=== PATIENT | female | born 1990 | race Caucasian/White ===

== ENCOUNTER 2023-03-09 11:29 | Outpatient (OUT) | payer OTHER, SELFPAY ==
[2023-03-09 12:32] LABS: Glucose 1 Hour 90 mg/dL
== END 2023-03-09 11:30 ==
LOC: LAB 11:34
PROVIDERS: Visit Provider Physician Assistant
DX: Z34.92 Encounter for supervision of normal pregnancy, unspecified, second trimester (principal)
CPT/HCPCS: 36415; 82950

== ENCOUNTER 2023-04-07 14:08 | Outpatient (OUT) | payer OTHER, SELFPAY ==
--- NOTE | 2023-04-07 14:10 | US_ITS ---
[address] [address] Patient Name: VINCENT HERNANDEZ MRN: [id number] date: 1990 Sex: F Assigned Patient Location: US Current Patient Location: Accession/Order Number: [id number] Exam Date: 04/07/2023 14:12 Report Date: 04/07/2023 16:25 At the request of: JOSE XAVIER Procedure: US OB BPP w non-stress EXAMINATION: US OB BPP w non-stress HISTORY: Z34.93 THIRD TRIMESTER COMPARISON: No relevant comparison available. TECHNIQUE: Ultrasound biophysical profile was performed in the radiology department. BREATHING MOVEMENTS: 2.0 GROSS BODY MOVEMENTS: 2.0 TONE: 2.0 QUALITATIVE AMNIOTIC FLUID VOLUME: 2.0 PRESENTATION: BREECH HEART RATE: 154.3 bpm bpm. AMNIOTIC FLUID VOLUME: 16.3 cm GESTATIONAL AGE: 31 weeks 6 days CONCLUSION: 1. Total biophysical profile score 8.0. 2. Grossly stable 6.8 cm heterogeneous masslike area within left uterine cavity (bicornuate uterus), likely thickened endometrium. Electronically authenticated by: ALY WHITE Date: 04/07/2023 16:25
[2023-04-07 14:42] VITALS: BP 112/60; PULSE 73
== END 2023-04-07 15:13 | disposition home or self-care (01) ==
LOC: US 14:17 → FBC 14:18
PROVIDERS: Visit Provider Obstetrics & Gynecology
DX: Z34.93 Encounter for supervision of normal pregnancy, unspecified, third trimester (principal)
CPT/HCPCS: 59025; 76818

== ENCOUNTER 2023-04-21 16:57 | Outpatient (OUT) | payer OTHER, SELFPAY ==
--- NOTE | 2023-04-21 17:05 | US_ITS ---
[address] [address] Patient Name: VINCENT HERNANDEZ MRN: [id number] date: 1990 Sex: F Assigned Patient Location: US Current Patient Location: US Accession/Order Number: [id number] Exam Date: 04/21/2023 17:06 Report Date: 04/22/2023 07:12 At the request of: JOSE XAVIER Procedure: US OB BPP w non-stress EXAMINATION: US OB BPP w non-stress HISTORY: THIRD TRIMESTER PREGNANY Z34.93 COMPARISON: No relevant comparison available. TECHNIQUE: Ultrasound biophysical profile was performed in the radiology department. non-reactive stress testing was performed by nursing staff in the birthing center. FINDINGS: BREATHING MOVEMENTS: 2 GROSS BODY MOVEMENTS: 2 TONE: 2 QUALITATIVE AMNIOTIC FLUID VOLUME: 2 PRESENTATION: Breech HEART RATE: 127.4 bpm H.B./min AMNIOTIC FLUID VOLUME: 13.7 cm cm GESTATIONAL AGE: 33 weeks 6 days CONCLUSION: Total biophysical profile score: 8 Electronically authenticated by: CHICO NORIEGA Date: 04/22/2023 07:12
[2023-04-21 17:43] VITALS: TEMP 35.9
[2023-04-21 17:44] VITALS: BP 115/62; PULSE 79
--- NOTE | 2023-04-21 17:44 | US_ITS ---
[address] [address] Patient Name: VINCENT HERNANDEZ MRN: [id number] date: 1990 Sex: F Assigned Patient Location: [facility] Current Patient Location: Accession/Order Number: [id number] Exam Date: 04/21/2023 17:06 Report Date: 04/22/2023 07:11 At the request of: JOSE XAVIER Procedure: US OB growth EXAMINATION: US OB growth HISTORY: BICORNUATE UTERUS COMPARISON: No relevant comparison available. FINDINGS: #: 1.0 Presentation: Breech presentation, longitudinal lie Heart Rate: 127.4 bpm Amniotic Fluid Volume: 13.7 cm cm Maximum Vertical Pocket: 1.8 cm cm 3.5 cm cm 7.6 cm cm 0.8 cm cm BIOMETRY: BPD: 7.7 cm cm; 31 weeks 0 days, 31 weeks 0 days, less than 3% HC: 30.7 cm cm; 34 weeks 2 days, 34 weeks 2 days, 23% AC: 31.5 cm cm; 35 weeks 3 days, 35 weeks 3 days, 90% FL: 6.5 cm cm; 33 weeks 2 days, 33 weeks 2 days, 25% EFW: 2392 g, 5 lbs. 4 oz. , 56%by AUA FL/AC: 20.5 FL/BPD: 83.3 HC/AC: 1.0 GESTATIONAL AGE: VANESSA by EDC: 33 weeks 6 days Age by EDC: 06/03/2023 Ultrasound Age: 33 weeks 4 days VANESSA by US: 06/05/2023 US/US OB growth IMPRESSION: BPD less than the 3rd percentile, otherwise normal interval growth Electronically authenticated by: CHICO NORIEGA Date: 04/22/2023 07:11
== END 2023-04-21 18:14 | disposition home or self-care (01) ==
LOC: US 16:58 → FBC 17:07
PROVIDERS: Visit Provider Obstetrics & Gynecology
DX: Z34.93 Encounter for supervision of normal pregnancy, unspecified, third trimester (principal)
CPT/HCPCS: 76816; 76818

== ENCOUNTER 2023-04-24 09:33 | Outpatient (OUT) | payer OTHER, SELFPAY | END 2023-04-24 10:22 | disposition home or self-care (01) | LOC: FBCO 09:33 → FBC 09:34 | PROVIDERS: Visit Provider Obstetrics & Gynecology | DX: Z34.93 Encounter for supervision of normal pregnancy, unspecified, third trimester (principal); Z3A.00 Weeks of gestation of pregnancy not specified | CPT/HCPCS: 59025 ==

== ENCOUNTER 2023-04-28 17:26 | Outpatient (OUT) | payer OTHER, SELFPAY ==
--- NOTE | 2023-04-28 17:27 | US_ITS ---
[address] [address] Patient Name: VINCENT HERNANDEZ MRN: [id number] date: 1990 Sex: F Assigned Patient Location: [facility] Current Patient Location: Accession/Order Number: [id number] Exam Date: 04/28/2023 17:30 Report Date: 04/29/2023 18:44 At the request of: OMAR HOOVER Procedure: US OB BPP w non-stress EXAMINATION: US OB BPP w non-stress HISTORY: THIRD TRIMESTER COMPARISON: No relevant comparison available. TECHNIQUE: Ultrasound biophysical profile was performed in the radiology department. BREATHING MOVEMENTS: 2.0 GROSS BODY MOVEMENTS: 2.0 TONE: 2.0 QUALITATIVE AMNIOTIC FLUID VOLUME: 2.0 PRESENTATION: BREECH HEART RATE: 137.8 bpm bpm. AMNIOTIC FLUID VOLUME: 13.1 cm GESTATIONAL AGE: 34 weeks 6 days CONCLUSION: 1. Total biophysical profile score 8.0. 2. Hypoechoic slightly heterogeneous left uterine cavity (bicornuate uterus), likely endometrium. Electronically authenticated by: ALY WHITE Date: 04/29/2023 18:44
[2023-04-28 18:13] VITALS: BP 104/53; PULSE 64
== END 2023-04-28 18:33 | disposition home or self-care (01) ==
LOC: US 17:26 → FBC 17:28
PROVIDERS: Visit Provider Midwife
DX: Z34.93 Encounter for supervision of normal pregnancy, unspecified, third trimester (principal)
CPT/HCPCS: 76818

== ENCOUNTER 2023-05-05 16:48 | Outpatient (OUT) | payer OTHER, SELFPAY ==
--- NOTE | 2023-05-05 16:55 | US_ITS ---
[address] [address] Patient Name: VINCENT HERNANDEZ MRN: [id number] date: 1990 Sex: F Assigned Patient Location: [facility] Current Patient Location: Accession/Order Number: [id number] Exam Date: 05/05/2023 16:56 Report Date: 05/06/2023 15:15 At the request of: JOSE XAVIER Procedure: US OB BPP w non-stress EXAMINATION: US OB BPP w non-stress HISTORY: Z34.93 THIRD TRIMESTER COMPARISON: Ultrasound biophysical 04/28/2023 TECHNIQUE: Ultrasound biophysical profile was performed in the radiology department. BREATHING MOVEMENTS: 2.0 GROSS BODY MOVEMENTS: 2.0 TONE: 2.0 QUALITATIVE AMNIOTIC FLUID VOLUME: 2.0 PRESENTATION: BREECH HEART RATE: 133.0 bpm bpm. AMNIOTIC FLUID VOLUME: 10.6 cm GESTATIONAL AGE: 35 weeks 6 days CONCLUSION: Total biophysical profile score 8.0. Electronically authenticated by: ALY WHITE Date: 05/06/2023 15:15
[2023-05-05 17:15] VITALS: BP 109/61; PULSE 71; TEMP 36.1
== END 2023-05-05 17:40 | disposition home or self-care (01) ==
LOC: US 16:48 → FBC 16:49
PROVIDERS: Visit Provider Obstetrics & Gynecology
DX: Z34.93 Encounter for supervision of normal pregnancy, unspecified, third trimester (principal)
CPT/HCPCS: 76818

== ENCOUNTER 2023-05-08 08:25 | Outpatient (RCR) | payer OTHER, SELFPAY ==
[2023-05-08 09:46] VITALS: BP 103/54; PULSE 84
== END 2023-05-08 10:10 | disposition home or self-care (01) ==
LOC: FBCO 08:25
PROVIDERS: Visit Provider Obstetrics & Gynecology Gynecology
DX: Z34.93 Encounter for supervision of normal pregnancy, unspecified, third trimester (principal)
CPT/HCPCS: 59025

== ENCOUNTER 2023-05-11 19:57 | Outpatient (REF) | payer OTHER, SELFPAY | END 2023-05-11 19:58 | disposition home or self-care (01) | LOC: LAB 19:57 | PROVIDERS: Visit Provider Obstetrics & Gynecology | DX: Z11.3 Encounter for screening for infections with a predominantly sexual mode of transmission (principal) | CPT/HCPCS: 87081 ==

== ENCOUNTER 2023-05-12 09:30 | Outpatient (OUT) | payer OTHER, SELFPAY ==
--- NOTE | 2023-05-12 09:38 | US_ITS ---
[address] [address] Patient Name: VINCENT HERNANDEZ MRN: [id number] date: 1990 Sex: F Assigned Patient Location: US Current Patient Location: Accession/Order Number: [id number] Exam Date: 05/12/2023 09:40 Report Date: 05/12/2023 21:44 At the request of: JOSE XAVIER Procedure: US OB BPP w non-stress EXAMINATION: US OB BPP w non-stress HISTORY: Third trimester COMPARISON: No relevant comparison available. TECHNIQUE: Ultrasound biophysical profile was performed in the radiology department. FINDINGS: BREATHING MOVEMENTS: 2.0 GROSS BODY MOVEMENTS: 2.0 TONE: 2.0 QUALITATIVE AMNIOTIC FLUID VOLUME: 2.0 PRESENTATION: TRANSVERSE RT HEART RATE: 133.0 bpm H.B./min AMNIOTIC FLUID VOLUME: 12.5 cm cm GESTATIONAL AGE: 36 weeks 6 days CONCLUSION: Total biophysical profile score: 8.0 Electronically authenticated by: CHICO NORIEGA Date: 05/12/2023 21:44
[2023-05-12 10:08] VITALS: BP 123/67; PULSE 71
== END 2023-05-12 10:35 | disposition home or self-care (01) ==
LOC: US 09:39 → FBC 09:39
PROVIDERS: Visit Provider Obstetrics & Gynecology
DX: Z34.93 Encounter for supervision of normal pregnancy, unspecified, third trimester (principal)
CPT/HCPCS: 59025; 76818

== ENCOUNTER 2023-05-15 09:52 | Outpatient (OUT) | payer OTHER, SELFPAY ==
[2023-05-15 10:04] VITALS: BP 121/70; PULSE 86
== END 2023-05-15 10:30 | disposition home or self-care (01) ==
LOC: FBCO 09:52 → FBC 09:54
PROVIDERS: Visit Provider Obstetrics & Gynecology
DX: Z34.93 Encounter for supervision of normal pregnancy, unspecified, third trimester (principal)
CPT/HCPCS: 59025

== ENCOUNTER 2023-05-19 15:57 | Outpatient (OUT) | payer OTHER, SELFPAY ==
[2023-05-19 16:05] VITALS: BP 114/55; PULSE 68
--- NOTE | 2023-05-19 16:22 | US_ITS ---
[address] [address] Patient Name: VINCENT HERNANDEZ MRN: [id number] date: 1990 Sex: F Assigned Patient Location: [facility] Current Patient Location: Accession/Order Number: [id number] Exam Date: 05/19/2023 16:23 Report Date: 05/20/2023 15:54 At the request of: JOSE XAVIER Procedure: US OB BPP w non-stress EXAMINATION: US OB BPP w non-stress HISTORY: THIRD TRIMESTER Z 34.93 COMPARISON: Ultrasound OB biophysical 05/12/2023 TECHNIQUE: Ultrasound biophysical profile was performed in the radiology department. BREATHING MOVEMENTS: 2.0 GROSS BODY MOVEMENTS: 2.0 TONE: 2.0 QUALITATIVE AMNIOTIC FLUID VOLUME: 2.0 PRESENTATION: CEPHALIC HEART RATE: Not recorded. AMNIOTIC FLUID VOLUME: 7.7 cm GESTATIONAL AGE: 37 weeks 6 days CONCLUSION: Total biophysical profile score 8.0. Electronically authenticated by: ALY WHITE Date: 05/20/2023 15:54
--- NOTE | 2023-05-19 16:22 | US_ITS ---
[address] [address] Patient Name: VINCENT HERNANDEZ MRN: [id number] date: 1990 Sex: F Assigned Patient Location: [facility] Current Patient Location: [facility] Accession/Order Number: [id number] Exam Date: 05/19/2023 16:23 Report Date: 05/20/2023 15:58 At the request of: JOSE XAVIER Procedure: US OB growth EXAMINATION: US OB growth HISTORY: THIRD TRIMESTER Z34.93 COMPARISON: No relevant comparison available. FINDINGS: Heart Rate: Not recorded. Number: 1.0 Position: CEPHALIC Amniotic Fluid Volume: 7.7 cm Maximum Vertical Pocket: 3.9 cm BIOMETRY: BPD: 8.1 cm cm; 32 weeks 3 days; < 3% HC: 32.5 cmcm; 36 weeks 6 days; 11% AC: 32.6 cm cm; 36 weeks 4 days; 30% FL: 7.0 cm cm; 36 weeks 0 days; 12% EFW: 2817.7 grams; 17% FL/AC: 21.5 FL/BPD: 87.2 HC/AC: 1.0 GESTATIONAL AGE: Age by EDC: 37 weeks 6 days VANESSA by EDC: 06/03/2023 Age by US: 35 weeks 3 days VANESSA by US: 06/20/2023 US/US OB growth IMPRESSION: 1. Single live intrauterine with growth detailed above. 2. Biparietal diameter is less than 3rd percentile. Electronically authenticated by: ALY WHITE Date: 05/20/2023 15:58
== END 2023-05-19 18:45 ==
LOC: FBCO 15:57 → FBC 15:58
PROVIDERS: Visit Provider Obstetrics & Gynecology
DX: Z34.93 Encounter for supervision of normal pregnancy, unspecified, third trimester (principal); Z3A.37 37 weeks gestation of pregnancy
CPT/HCPCS: 59025; 76816; 76818

== ENCOUNTER 2023-05-20 13:34 | Outpatient (OUT) | payer OTHER, SELFPAY ==
--- NOTE | 2023-05-20 13:35 | US_ITS ---
[address] [address] Patient Name: VINCENT HERNANDEZ MRN: [id number] date: 1990 Sex: F Assigned Patient Location: US Current Patient Location: US Accession/Order Number: [id number] Exam Date: 05/20/2023 13:36 Report Date: 05/20/2023 15:52 At the request of: JOSE XAVIER Procedure: US OB BPP w non-stress EXAMINATION: US OB BPP w non-stress HISTORY: Decreased amniotic fluid COMPARISON: No relevant comparison available. TECHNIQUE: Ultrasound biophysical profile was performed in the radiology department. BREATHING MOVEMENTS: 2.0 GROSS BODY MOVEMENTS: 2.0 TONE: 2.0 QUALITATIVE AMNIOTIC FLUID VOLUME: 2.0 PRESENTATION: BREECH HEART RATE: 156.1 bpm bpm. AMNIOTIC FLUID VOLUME: 12.5 cm GESTATIONAL AGE: 38 weeks 0 days CONCLUSION: 1. Total biophysical profile score 8.0. 2. Hypoechoic mass within fundal myometrium 8.0 x 7.1 x 4.0 cm; likely a leiomyoma. Electronically authenticated by: ALY WHITE Date: 05/20/2023 15:52
== END 2023-05-20 13:35 | disposition home or self-care (01) ==
LOC: US 13:34
PROVIDERS: Visit Provider Obstetrics & Gynecology
DX: O41.03X0 Oligohydramnios, third trimester, not applicable or unspecified (principal); Z3A.38 38 weeks gestation of pregnancy
CPT/HCPCS: 76818

== ENCOUNTER 2023-05-22 01:23 | Inpatient (IN) | payer OTHER, SELFPAY ==
[2023-05-22] VITALS (49 sets, daily range): BP systolic 83–124; BP diastolic 38–78; PULSE 58–80; RESP 13–35; TEMP 36.3–37.1; O2SAT 96–98
[2023-05-22 02:19] LABS: Bilirubin Urine NEGATIVE (NEGATIVE); Blood Urine NEGATIVE (NEGATIVE); Clarity Urine CLEAR (CLEAR); Color Urine YELLOW (YELLOW); Glucose Urine UA NEGATIVE (NEGATIVE); Ketones Urine NEGATIVE (NEGATIVE); Leukocyte Esterase Urine NEGATIVE (NEGATIVE); Nitrite Urine NEGATIVE (NEGATIVE); Protein Urine NEGATIVE (NEG/TRACE); Specific Gravity Urine 1.025 (1.005-1.025); Urobilinogen Urine 0.2 EU/dL (0.2-1.0); pH Urine 5.5 (5.0-9.0)
[2023-05-22 02:21] LABS: Urine Microscopic Indicated NO
[2023-05-22 02:21] LABS: Amnisure POSITIVE (NEGATIVE)
[2023-05-22] MEDS: 0.9 % SODIUM CHLORIDE 1,000 ML 1000 ML IV ×2 (02:45→04:00)
[2023-05-22 03:11] LABS: Basophils Percent Auto 0.3 % (0.2-2.0); Eosinophils Absolute Auto 0.2 10^3/uL (0.0-0.7); Eosinophils Percent Auto 1.7 % (0.9-7.0); Hematocrit 36.2 % (36.0-48.0); Hemoglobin 12.1 g/dL (12.0-16.0); Immature Granulocytes Abs Auto 0.07 10^3/uL (0.00-0.03); Immature Granulocytes Pct Auto 0.6 % (0.0-0.5); Lymphocytes Absolute Auto 2.7 10^3/uL (1.2-3.8); Lymphocytes Percent Auto 22.8 % (20.5-60.0); Mean Corpuscular HGB Conc 33.4 g/dL (29.9-35.2); Mean Corpuscular Hemoglobin 28.7 pg (26.7-34.0); Monocytes Absolute Auto 0.7 10^3/uL (0.3-0.8); Monocytes Percent Auto 6.1 % (1.7-12.0); Neutrophils Absolute Auto 8.2 10^3/uL (1.4-6.5); Neutrophils Percent Auto 68.5 % (43.0-75.0); Platelet Count 246 10^3/uL (150-450); Red Blood Count 4.21 10^6/uL (4.20-5.40); Red Cell Distribution Width 13.5 % (11.0-15.0); White Blood Count 11.9 10^3/uL (4.0-11.0)
[2023-05-22 03:20] LABS: Amphetamine Screen Urine NEGATIVE (NEGATIVE); Barbiturates Screen Urine NEGATIVE (NEGATIVE); Benzodiazepines Screen Urine NEGATIVE (NEGATIVE); Buprenorphine Screen Urine NEGATIVE (NEGATIVE); Cannabinoid Screen Urine POSITIVE (NEGATIVE); Cocaine Screen Urine NEGATIVE (NEGATIVE); Methadone Screen Urine NEGATIVE (NEGATIVE); Methamphetamines Screen Urine NEGATIVE (NEGATIVE); Opiate Screen Urine NEGATIVE (NEGATIVE); Oxycodone Screen Urine NEGATIVE (NEGATIVE); Phencyclidine Screen Urine NEGATIVE (NEGATIVE); Tricyclic Antidepressant Urine NEGATIVE (NEGATIVE)
[2023-05-22] MEDS: FAMOTIDINE/PF 20 MG/2 ML VIAL IV (04:02)
[2023-05-22] MEDS: CEFAZOLIN SODIUM/DEXTROSE 2 GM/50 ML PIGGYBACK IV (04:04)
[2023-05-22] MEDS: LACTATED RINGER'S SOLUTION 1,000 ML 50 ML IV (04:56)
--- NOTE | 2023-05-22 04:59 | P.ON_ITS ---
Brief Operative Note Date of procedure: 05/22/23 Pre-op diagnosis: iup at 38+wks, previous c/s, uterine didelphysis, srom Post-op diagnosis: same as pre-op Procedure: NAME OF PROCEDURE: [ section ] PROCEDURE: Patient was taken back to the Operating Room where she was given a spinal anesthesia with Duramorph without difficulty. She was prepped and draped in the normal sterile fashion. A Pfannenstiel skin incision was then made 2 cm above the symphysis pubis and carried down to underlying rectus fascia using a Bovie. The fascia was incised in the midline and extended laterally using Walker scissors. Two Sushant clamps were placed on the superior aspect of the fascia and dissected off the underlying rectus muscles. The same was performed on the inferior aspect as well. The muscles were then in the midline. Tamika toneum was identified and entered bluntly. The peritoneum was then extended superiorly and inferiorly with good visualization of the bladder. The bladder blade was inserted. A low transverse incision was made on the patient's uterus and extended laterally digitally. The was then delivered atraumatically after the bladder blade was removed in the breech position. The cord was clamped and cut. Cord blood was obtained. The was handed off to awaiting team. The patient's placenta was spontaneously delivered. The uterus was then exteriorized. The uterus was cleared of all clots and debris. The bladder blade was reinserted. The patient's uterine incision was closed using #0 Vicryl in a running lock fashion. Excellent hemostasis was assured. The uterus was then returned to the patient's abdomen. The patient's abdomen was copiously irrigated using warm saline. Peritoneal gutters were cleared of all clots and debris. Again excellent hemostasis was assured. The patient's peritoneum was closed using 3-0 Vicryl in a running fashion. The patient's fascia was closed using #0 Vicryl in a running fashion. The patient's skin was closed using 4-0 Vicryl subcuticularly. The patient tolerated the procedure well. Sponge, lap, and needle counts were correct x2. The patient was taken to the Recovery Room in stable condition. Anesthesia: spinal Surgeon: Judd Mg Loss Prevention/Safety District Manager: Cayla Chowdary Estimated blood loss (mL): 575 Pathology: other (placenta) Condition: stable Disposition: floor
--- NOTE | 2023-05-22 05:01 | PM.OBPRCCS ---
Procedure Pre-op/Post-op diagnoses: Pre-Op/Post-Op Diagnoses Operation Date: 05/22/23 04:00 <No data on this case meets the specified criteria> Procedure: Procedures Operation Date: 05/22/23 04:00 Actual Procedure Side Surgeon p Repeat Not Applicable Judd Mg DO Seat Joiner Chainstitch: Cayla Chowdary Estimated blood loss (mL): 575 Disposition: floor Anesthesia type: Spinal
[2023-05-22] MEDS: OXYTOCIN/0.9 % SODIUM CHLORIDE 20 UNITS/1,000 ML PLAST..BAG 125 UNIT IV (05:28)
--- NOTE | 2023-05-22 06:07 | PC.NURSE ---
Beauchamp intact draining clear yellow
--- NOTE | 2023-05-22 06:10 | PC.NURSE ---
Baby on mother's chest
--- NOTE | 2023-05-22 06:16 | PC.NURSE ---
Beauchamp patent and draining clear yellow urine
--- NOTE | 2023-05-22 06:20 | PC.NURSE ---
With fundus checks, feeling pressure at umbilicus; cespedes patent and draining clear yellow urine; baby to breast
[2023-05-22] MEDS: KETOROLAC TROMETHAMINE 30 MG/ML VIAL IVP ×3 (09:47→23:11)
[2023-05-22] MEDS: CEFAZOLIN SODIUM/DEXTROSE,ISO 2 GM/50 ML PIGGYBACK IV (11:00)
--- NOTE | 2023-05-22 15:33 | W.PC.ACHO ---
Registration Status: ADM JER Primary Language: Preferred Language: Bolivian Active Medications Generic Name Dose Route Start Last Admin Trade Name Freq PRN Reason Stop Dose Admin Al Hydroxide/Mg Hydroxide 2,400 mg 05/22/23 04:56 Magnesium Hydroxide 2,400 Mg/10 Ml Oral.Susp PO Q6H PRN Dyspepsia Diphenhydramine HCl 25 mg 05/22/23 04:56 Diphenhydramine Hcl 50 Mg/Ml (1ml) Vial IV 05/23/23 04:58 Q6H PRN Itching Docusate Sodium 100 mg 05/23/23 09:00 Docusate Sodium 100 Mg Capsule PO BID CLEM Enoxaparin Sodium 40 mg 05/22/23 17:00 Enoxaparin Sodium 40 Mg/0.4 Ml Syringe SUBQ Q24H CLEM Sodium Chloride 1,000 mls @ 125 mls/hr 05/22/23 03:00 Sodium Chloride 0.9% 1,000 Ml IV .Q8H CLEM Lactated Ringer's 1,000 mls @ 50 mls/hr 05/22/23 05:00 05/22/23 04:56 Lactated Ringers IV 50 mls/hr .Q20H CLEM Administration Lactated Ringer's 1,000 mls @ 125 mls/hr 05/22/23 05:00 Lactated Ringers IV .Q8H CLEM Ibuprofen 800 mg 05/22/23 04:56 Ibuprofen 400 Mg Tablet PO Q8H PRN Pain Ketorolac Tromethamine 30 mg 05/22/23 04:56 05/22/23 09:47 Ketorolac Tromethamine 30 Mg/Ml Vial IVP 05/24/23 04:57 30 mg Q6H PRN Administration Pain Nalbuphine HCl 10 mg 05/22/23 04:56 Nalbuphine Hcl 10 Mg/Ml Ampule IV 05/23/23 04:58 Q3H PRN Itching Ondansetron HCl 4 mg 05/22/23 04:56 Ondansetron Pf 4 Mg/2 Ml Vial IV Q6H PRN Nausea And Vomiting Oxycodone/Acetaminophen 1 tab 05/22/23 04:56 Oxycodone Hcl/Acetaminophen 1 Tab Tablet PO Q4H PRN Pain Scale 4-6 Oxycodone/Acetaminophen 2 tab 05/22/23 04:56 Oxycodone Hcl/Acetaminophen 1 Tab Tablet PO Q4H PRN Pain Scale 7-10 Senna 17.2 mg 05/22/23 20:00 Sennosides 8.6 Mg Tablet PO QHS PRN Constipation Simethicone 80 mg 05/22/23 04:56 Simethicone 80 Mg Tab.Chew PO QID PRN Abdominal Distention Diet Category Date Time Status NPO Diet Diet 05/22/23 02:57 Active Regular Consistency Diet Diet 05/22/23 Dinner Active Consults Category Date Time Status Consult to Anesthesiology Routine Cons 05/22/23 Ordered Consult to Pulmonary Specialist Routine Cons 05/22/23 Ordered IV Insertion/Site Date of IV Line Insertion [18g 05/22/23 left Hand] IV Insertion Time [18g left 02:40 Hand] Neurology Patient orientation (short person,place,time,situation list) Respiratory Lung sounds [Throughout] clear Lung sounds [Throughout] clear Lung sounds [Throughout] clear Lung sounds [Throughout] clear Pulse Oximetry 98 Pulse Oximetry 98 Pulse Oximetry 96 Pulse Oximetry 96 Pulse Oximetry 97 Pulse Oximetry 96 Pulse Oximetry 97 Pulse Oximetry 96 Oxygen Delivery Method Room Air Oxygen Delivery Method Room Air Oxygen Delivery Method Room Air Oxygen Delivery Method Room Air Oxygen Delivery Method Room Air Oxygen Delivery Method Room Air Catheter Urinary Catheter Date of 05/22/23 Insertion [Urethral] Urinary Catheter Time of 03:00 Insertion [Urethral] Date Urinary Catheter Removed 05/22/23 [Urethral] Time Urinary Catheter 14:15 Discontinued [Urethral]
--- NOTE | 2023-05-22 23:07 | RESP.RT ---
Patient at this time.
[2023-05-23 04:30] VITALS: BP 89/45; PULSE 70; RESP 18; TEMP 37
[2023-05-23 04:57] VITALS: BP 89/45
[2023-05-23 05:08] LABS: Basophils Percent Auto 0.3 % (0.2-2.0); Eosinophils Absolute Auto 0.1 10^3/uL (0.0-0.7); Hematocrit 27.9 % (36.0-48.0); Hemoglobin 9.3 g/dL (12.0-16.0); Immature Granulocytes Abs Auto 0.07 10^3/uL (0.00-0.03); Immature Granulocytes Pct Auto 0.5 % (0.0-0.5); Lymphocytes Absolute Auto 3.3 10^3/uL (1.2-3.8); Lymphocytes Percent Auto 22.6 % (20.5-60.0); Mean Corpuscular HGB Conc 33.3 g/dL (29.9-35.2); Mean Corpuscular Hemoglobin 29.1 pg (26.7-34.0); Mean Corpuscular Volume 87.2 fL (81.0-99.0); Mean Platelet Volume 11.4 fL (9.5-13.5); Monocytes Absolute Auto 0.9 10^3/uL (0.3-0.8); Monocytes Percent Auto 6.3 % (1.7-12.0); Neutrophils Absolute Auto 10.2 10^3/uL (1.4-6.5); Neutrophils Percent Auto 69.3 % (43.0-75.0); Platelet Count 187 10^3/uL (150-450); Red Cell Distribution Width 13.3 % (11.0-15.0); White Blood Count 14.7 10^3/uL (4.0-11.0)
[2023-05-23] MEDS: KETOROLAC TROMETHAMINE 30 MG/ML VIAL IVP ×3 (06:28→17:57)
[2023-05-23] MEDS: ENOXAPARIN SODIUM 40 MG/0.4 ML SYRINGE SUBQ (06:29)
[2023-05-23] MEDS: DOCUSATE SODIUM 100 MG CAPSULE PO ×2 (09:44→21:36)
[2023-05-23 10:47] VITALS: BP 106/58; PULSE 98; RESP 18; TEMP 36.8
[2023-05-23 11:16] VITALS: RESP 16; TEMP 36.8
--- NOTE | 2023-05-23 11:24 | PM.OBPN ---
OB - PN: Subj Subjective Patient comments: no complaints and pain well controlled [place] status: doing well Exam Constitutional Vital Signs, click to edit/add: Last Vital Signs Temp 98.3 F 05/23/23 11:16 Pulse 98 H 05/23/23 10:47 Resp 16 05/23/23 11:16 BP 106/58 05/23/23 10:47 Pulse Ox 98 05/22/23 06:00 O2 Del Method Room Air 05/23/23 04:30 Documenting provider has reviewed patient's vital signs: yes Respiratory Common normals: clear to auscultation bilaterally Cardio Common normals: regular rate and regular rhythm GI Common normals: Normal to inspection, nondistended, normoactive bowel sounds present Extremity Common normals: no clubbing, cyanosis or edema and no calf tenderness Results Labs Labs: Short CBC 05/23/23 Range/Units 04:52 WBC 14.7 H (4.0-11.0) 10^3/uL Hgb 9.3 L (12.0-16.0) g/dL Hct 27.9 L (36.0-48.0) % Plt Count 187 (150-450) 10^3/uL OB - PN: A/P Plan - day: 1 Plan: routine postop care Time Spent with Patient Time: Total time spent is greater than 50% in coordination of care (as documented) at patient's floor/unit and/or counseling patient: Total time spent with greater than 50% in coordination of care (as documented) at patient's floor/unit and/or counseling patient: less than 15 minutes
[2023-05-23 16:25] VITALS: BP 114/64; RESP 16; TEMP 37.3
[2023-05-23] MEDS: MAGNESIUM HYDROXIDE 2,400 MG/10 ML ORAL.SUSP 2400 MG PO (16:27)
--- NOTE | 2023-05-23 20:10 | W.PC.ACHO ---
Registration Status: ADM JER Primary Language: Preferred Language: Turkish Active Medications Generic Name Dose Route Start Last Admin Trade Name Freq PRN Reason Stop Dose Admin Al Hydroxide/Mg Hydroxide 2,400 mg 05/22/23 04:56 05/23/23 16:27 Magnesium Hydroxide 2,400 Mg/10 Ml Oral.Susp PO 2,400 mg Q6H PRN Administration Dyspepsia Docusate Sodium 100 mg 05/23/23 09:00 05/23/23 09:44 Docusate Sodium 100 Mg Capsule PO 100 mg BID CLEM Administration Enoxaparin Sodium 40 mg 05/24/23 06:00 Enoxaparin Sodium 40 Mg/0.4 Ml Syringe SUBQ Q24H CLEM Sodium Chloride 1,000 mls @ 125 mls/hr 05/22/23 03:00 Sodium Chloride 0.9% 1,000 Ml IV .Q8H CLEM Lactated Ringer's 1,000 mls @ 50 mls/hr 05/22/23 05:00 05/22/23 04:56 Lactated Ringers IV 50 mls/hr .Q20H CLEM Administration Lactated Ringer's 1,000 mls @ 125 mls/hr 05/22/23 05:00 Lactated Ringers IV .Q8H CLEM Ibuprofen 800 mg 05/22/23 04:56 Ibuprofen 400 Mg Tablet PO Q8H PRN Pain Ketorolac Tromethamine 30 mg 05/22/23 04:56 05/23/23 17:57 Ketorolac Tromethamine 30 Mg/Ml Vial IVP 05/24/23 04:57 30 mg Q6H PRN Administration Pain Ondansetron HCl 4 mg 05/22/23 04:56 Ondansetron Pf 4 Mg/2 Ml Vial IV Q6H PRN Nausea And Vomiting Oxycodone/Acetaminophen 1 tab 05/22/23 04:56 Oxycodone Hcl/Acetaminophen 1 Tab Tablet PO Q4H PRN Pain Scale 4-6 Oxycodone/Acetaminophen 2 tab 05/22/23 04:56 Oxycodone Hcl/Acetaminophen 1 Tab Tablet PO Q4H PRN Pain Scale 7-10 Senna 17.2 mg 05/22/23 20:00 Sennosides 8.6 Mg Tablet PO QHS PRN Constipation Simethicone 80 mg 05/22/23 04:56 Simethicone 80 Mg Tab.Chew PO QID PRN Abdominal Distention Respiratory Oxygen Delivery Method Room Air Oxygen Delivery Method Room Air
[2023-05-24] MEDS: KETOROLAC TROMETHAMINE 30 MG/ML VIAL IVP (00:41)
[2023-05-24 00:45] VITALS: BP 117/60; PULSE 78; RESP 16; TEMP 36.9
[2023-05-24] MEDS: ENOXAPARIN SODIUM 40 MG/0.4 ML SYRINGE SUBQ (06:00)
--- NOTE | 2023-05-24 07:42 | P.OBPN_ITS ---
OB - PN: Subj Subjective Patient comments: no complaints and pain well controlled [place] status: doing well Exam Constitutional Vital Signs, click to edit/add: Last Vital Signs Temp 98.5 F 05/24/23 00:45 Pulse 78 05/24/23 00:45 Resp 16 05/24/23 00:45 BP 117/60 05/24/23 00:45 Pulse Ox 98 05/22/23 06:00 O2 Del Method Room Air 05/23/23 04:30 Documenting provider has reviewed patient's vital signs: yes Common normals: no apparent distress Respiratory Common normals: normal respiratory effort and clear to auscultation bilaterally Cardio Common normals: regular rate and regular rhythm GI Common normals: Normal to inspection, nondistended, normoactive bowel sounds present Extremity Common normals: no clubbing, cyanosis or edema OB - PN: A/P Plan - day: 2 Plan: routine postop care, discharge home and follow up 6 weeks Time Spent with Patient Time: Total time spent is greater than 50% in coordination of care (as documented) at patient's floor/unit and/or counseling patient: Total time spent with greater than 50% in coordination of care (as documented) at patient's floor/unit and/or counseling patient: less than 15 minutes
[2023-05-24] MEDS: IBUPROFEN 400 MG TABLET 800 MG PO (08:34)
[2023-05-24 08:35] VITALS: BP 114/70; PULSE 70; RESP 16; TEMP 36.8
[2023-05-24] MEDS: DOCUSATE SODIUM 100 MG CAPSULE PO (08:35)
[2023-05-24 08:40] VITALS: BP 114/70; PULSE 70
--- NOTE | 2023-05-24 10:09 | SWNOTE1 ---
SW consulted due to positive drug screen. SW spoke with nursing prior to seeing pt. Pt positive for marijuana on admission. Pt has been appropriate with baby. Pt has been appropriate during stay, pt was crying this morning when father of baby was in room. SW met with pt to discuss needs and positive drug screen. Pt does admit to using marijuana during , she smoked bowls. She stated she did it due to stress/anixety. She used to be a 10 (give or take) a day cigarette smoker, but she cut that way back and only did a few hits and then threw the cigarette out. She did not drink during . SW and pt spoke about father of baby. Pt did start to cry and stated she is not sure if they are together at this time, she stated it is complicated. Father of baby, Brenton, had a baby with another woman in January and he moved out about a month ago to live with her. Pt did voice Brenton and herself do get along well and he is a good father. She voiced he is helping to care for both babies, just is a tough situation. SW did ask if pt has been to any counseling and she stated in the past but not recently. Pt voiced she does have a good support system. She has a 16 year old daughter at home. Pt's family/friends are supportive of her, but do not want her and Brenton to be together, which makes things harder as well. Pt does have everything she needs at home with baby. Pt is attempting breast feeding, but is supplementing formula as needed. Pt is appropriate with baby and caring towards baby. No other concerns at this time. SW let pt know if she would like any resources to ask for SW to come back. SW did let pt know due to [place] law, SW is mandated reported and CPS will be notified due to the marijuana. Pt voiced understanding. No questions at this time. VALERIA updated nursing, plan is for discharge today.
--- NOTE | 2023-05-31 | DS_ITS ---
DISCHARGE DATE: ??05/31/2023 PRIMARY DIAGNOSES: 1.? Intrauterine at 38+ weeks. 2.? Previous . 3.? Uterine didelphys. 4.? Spontaneous rupture of membranes PROCEDURE:? Repeat . HOSPITAL COURSE:? As expected.? Please see chart for full details.? LABORATORY DATA:? Please see chart. COMPLICATIONS:? None. DISCHARGE CONDITION:? Stable. CONSULTATION:? Anesthesia. DISCHARGE INSTRUCTIONS: 1.? Diet:? Regular. 2.? Medications: a.? Percocet 5/325 one to two p.o. every 4-6 hours p.r.n. pain. b.? Motrin 800 one p.o. every 8 hours p.r.n. pain. 3.? Followup in one week. Restrictions:? Pelvic rest for 6 weeks.? No heavy lifting.? May drive when pain free and no longer on narcotics. MTDD
== END 2023-05-24 13:40 | disposition home or self-care (01) | DRG 540 ==
PROVIDERS: Admitting Provider Obstetrics & Gynecology; Visit Provider Obstetrics & Gynecology
PROC: 10D00Z1 Extraction of Products of Conception, Low, Open Approach (ICD-10-PCS; CPT 59514; principal; 2023-05-22 04:00)
DX: O32.1XX0 Maternal care for breech presentation, not applicable or unspecified (principal); Z3A.38 38 weeks gestation of pregnancy; O99.334 Smoking (tobacco) complicating childbirth; F17.210 Nicotine dependence, cigarettes, uncomplicated; O99.324 Drug use complicating childbirth; F12.90 Cannabis use, unspecified, uncomplicated; O34.211 Maternal care for low transverse scar from previous cesarean delivery; Z37.0 Single live birth; O34.03 Maternal care for unspecified congenital malformation of uterus, third trimester; Q51.28 Other and unspecified doubling of uterus; Z87.39 Personal history of other diseases of the musculoskeletal system and connective tissue; Z87.19 Personal history of other diseases of the digestive system; Z79.899 Other long term (current) drug therapy; Z98.84 Bariatric surgery status; Z83.3 Family history of diabetes mellitus; Z81.8 Family history of other mental and behavioral disorders; Z82.49 Family history of ischemic heart disease and other diseases of the circulatory system; O42.92 Full-term premature rupture of membranes, unspecified as to length of time between rupture and onset of labor
CPT/HCPCS: 36415; 51702; 59025; 76816; 76818; 80307; 81003; 84112; 85025; 86850; 86900; 86901; 94667; 94668; 96372; 96374; 96375; 96376

== ENCOUNTER 2023-05-26 08:15 | Outpatient (OUT) | payer OTHER, SELFPAY ==
[2023-05-26 14:55] VITALS: BP 121/82; PULSE 61; RESP 14; TEMP 36.6; O2SAT 97
--- NOTE | 2023-05-26 14:59 | PC.NURSE ---
States is feeling well, incision more tender on right side. States had more manipulation on right side as baby was breech and had double uterus. States Motrin 800 is medication of choice for pain relief. Has taken 1 dose of percocet since discharge, Choosing to pump and feed as well as use Sim Sensitive formula. it is working best to have others feed her Declines interest in returning infant to direct . Review of care for self and NB for both parents and verbalized understanding. Father comfortable with diapering and bottle feeding infant as demo'd during visit. No further questions or concerns at this time.
== END 2023-05-26 14:00 | disposition home or self-care (01) ==
LOC: FBCO 08:16
PROVIDERS: Visit Provider Obstetrics & Gynecology
DX: Z39.2 Encounter for routine postpartum follow-up (principal)

== ENCOUNTER 2023-10-05 19:30 | Outpatient (REF) | payer OTHER, SELFPAY ==
[2023-10-10 08:15] LABS: Age Gdln ACOG Testing Note (.); HPV Aptima Negative (Negative); IGP, Aptima HPV, rfx 16/18,45 Note (.)
== END 2023-10-05 19:31 | disposition home or self-care (01) ==
LOC: LAB 19:30
PROVIDERS: Visit Provider Physician Assistant
DX: Z01.419 Encounter for gynecological examination (general) (routine) without abnormal findings (principal)
CPT/HCPCS: 87624; G0145

== ENCOUNTER 2024-10-18 19:19 | Outpatient (REF) | payer OTHER, SELFPAY ==
--- OUTSIDE RECORDS SUMMARY | 2024-10-18 19:24 | XMS_ITS | CCD ---
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, DR KNIGHT Primary Care Unavailabl e KARASIK ., DR KNIGHT Consulting Unavailabl e KARASIK ., DR KNIGHT Attending Unavailabl e KARASIK ., DR KNIGHT Admitting Unavailabl e KARASIK ., DR KNIGHT Consulting Unavailabl e KARASIK ., DR KNIGHT Primary Care Unavailabl e KARASIK ., DR KNIGHT Attending Unavailabl e KARASIK ., DR KNIGHT Admitting Unavailabl e DUC ., DR GARCIA Consulting Unavailable ZIEBER, DR ALY Serna Consulting Unavailable NILL ., DR UNDERWOOD Consulting Unavailable LADONNA MCKEON Consulting Unavailable HAY ., DR PERKINS Consulting Unavailable HAY ., DR PERKINS Attending Unavailable HAY ., DR PERKINS Admitting Unavailable KARASIK ., DR KNIGHT Primary Care Unavailabl e DEREK BALTAZAR Consulting Unavailable KARASIK ., DR KNIGHT Consulting Unavailabl e KARASIK ., DR KNIGHT Primary Care Unavailabl e KARASIK ., DR KNIGHT Attending Unavailabl e KARASIK ., DR KNIGHT Admitting Unavailabl e ZIEBER, DR ALY Serna Consulting Unavailable KARASIK ., DR KNIGHT Consulting Unavailabl e KARASIK ., DR KNIGHT Primary Care Unavailabl e KARASIK ., DR KNIGHT Attending Unavailabl e KARASIK ., DR KNIGHT Admitting Unavailabl e KARASIK ., DR KNIGHT Consulting Unavailabl e KARASIK ., DR KNIGHT Primary Care Unavailabl e KARASIK ., DR KNIGHT Attending Unavailabl e KARASIK ., DR KNIGHT Admitting Unavailabl e ZIEBER, DR ALY Serna Consulting Unavailable KARASIK ., DR KNIGHT Consulting Unavailabl e KARASIK ., DR KNIGHT Primary Care Unavailabl e KARASIK ., DR KNIGHT Attending Unavailabl e KARASIK ., DR KNIGHT Admitting Unavailabl e WEST, DR CHICO Bonner Consulting Unavailable ZIEBER, DR ALY Serna Consulting Unavailable KARASIK ., DR KNIGHT Primary Care Unavailabl e ZIEBER, DR ALY Serna Attending Unavailable ZIEBER, DR ALY Serna Admitting Unavailable KARASIK ., DR KNIGHT Consulting Unavailabl e [facility] Primary [facility] Unava ilable KARASIK ., DR KNIGHT Attending Unavailabl e KARASIK ., DR KNIGHT Admitting Unavailabl e ZIEBER, DR ALY Serna Consulting Unavailable [facility] Unava ilable KARASIK ., DR KNIGHT Attending Unavailabl e KARASIK ., DR KNIGHT Admitting Unavailabl e MARY HUFFMAN Primary Care Unavailable VARGAS KAUR Consulting Unavail able FARRAH SINHA Attending Unavailable FARRAH SINHA Admitting Unavailable JOSE XAVIER Referring Unavailable TRICIA SIFUENTES Attending Unavailable SERVICES, [facility] Unava ilable CHICO PARRA Attending Unavailable KAREN EAGLE Admitting Unavailable SERVICES, [facility] Care Unava ilable WALKER, COLT R Attending Unavailable Tricia Xavier Unavailable Medications Current Medications Medication Drug Class(es) Dates Sig (Normalized) Sig (Original) acetaminophen 500 mg oral tablet (2 sources) Start: 01-08-2023 take 2 tablets by mouth every six hours as needed for pain acetaminophen (TYLENOL) 500 MG tablet Take 2 tablets by mouth every 6 hours as needed for Pain 30 tablet 1 01/08/2023 Active Start: 01-07-2023 acetaminophen (TYLENOL) tablet 1,000 mg calcium chloride 0.0014 meq/ml / potassium chloride 0.004 meq/ml / sodium chloride 0.103 meq/ml / sodium lactate 0.028 meq/ml injectable solution (2 sources) Start: 01-07-2023 End: 01-07-2023 lactated ringers IV soln infusion cyclobenzaprine hydrochloride 10 mg oral tablet (1 source) Muscle Relaxant Start: 01-07-2023 cyclobenzaprine (FLEXERIL) tablet 10 mg docusate sodium 50 mg / sennosides, fdc 8.6 mg oral tablet (2 sources) Start: 01-07-2023 take 1 tablet by mouth at bedtime sennosides-docusate sodium (SENOKOT-S) 8.6-50 MG tablet Take 1 tablet by mouth in the morning and at bedtime 60 tablet 0 01/08/2023 Active Ethinyl Estradiol / Ferrous fumarate / Norethindrone (1 source) Estrogen Start: 07-13-2024 take 1 tablet by mouth once daily in the morning [facility] 10/16 1-20 MG-MCG tablet Indications: 6 weeks follow-up TAKE 1 TABLET BY MOUTH EVERY MORNING 28 tablet 11 07/13/2024 Active famotidine (PEPCID) 20 mg in sodium chloride (PF) 0.9 % 10 mL injection (2 sources) Start: 01-07-2023 famotidine (PEPCID) 20 mg in sodium chloride (PF) 0.9 % 10 mL injection Start: 01-07-2023 End: 01-07-2023 take 20 mg intravenously twice daily as needed 20 mg, IntraVENous, 2 TIMES DAILY PRN, Starting on Anahi 01/07/23 at 1426, Until Anahi 01/07/23 at 1747, acid reflux IV Push over minimum of 2 minutes - Dilute with 10 mL NS gabapentin 300 mg oral capsule (1 source) Anti-epileptic Agent Start: 01-07-2023 gabapentin (NEURONTIN) capsule 300 mg magnesium hydroxide 80 mg/ml oral suspension (2 sources) Start: 01-08-2023 End: 02-07-2023 take 30 mL by mouth once daily as needed for constipation magnesium hydroxide (MILK OF MAGNESIA) 400 MG/5ML suspension Take 30 mLs by mouth daily as needed for Constipation 900 mL 0 01/08/2023 02/07/2023 Active Start: 01-07-2023 magnesium hydr oxide (MILK OF MAGNESIA) 400 MG/5ML suspension 30 mL 2 ml metoclopramide 5 mg/ml prefilled syringe (2 sources) Dopamine-2 Receptor Antagonist Start: 01-07-2023 metoclopramide (REGLAN) injection 10 mg metroNIDAZOLE 500 mg oral tablet (2 sources) Nitroimidazole Antimicrobial Start: 01-07-2023 End: 01-13-2023 take 1 tablet by mouth twice daily metroNIDAZOLE (FLAGYL) 500 MG tablet Take 1 tablet by mouth 2 times daily for 5 days 10 tablet 0 01/08/2023 01/13/2023 Active ondansetron (ZOFRAN-ODT) disintegrating tablet 4 mg (1 source) Start: 01-07-2023 ondansetron (ZOFRAN-ODT) disintegrating tablet 4 mg polyethylene glycol 3350 [id number] mg powder for oral solution (1 source) Osmotic Laxative Start: 01-07-2023 polyethylene glycol (GLYCOLAX) packet 17 g Potassium Chloride (1 source) Start: 01-07-2023 potassium chloride (KLOR-CON M) extended release tablet 40 mEq promethazine hydrochloride 25 mg rectal suppository (1 source) Phenothiazine Start: 01-07-2023 promethazine (PHENERGAN) suppository 25 mg 1000 ml sodium chloride 9 mg/ml injection (2 sources) Start: 01-07-2023 take 25 mL intravenously every hour as needed 25 mL, IntraVENous, at 100 mL/hr, PRN, If patient receiving piggyback infusions without ordered maintenance IV fluids or with frequent/long duration piggyback infusions, Starting on Anahi 01/07/23 at 1414 Administer at the same rate as the piggyback being infused. Start: 01-07-2023 take 5-40 mL intrave nously once as needed 5-40 mL, IntraVENous, PRN, Starting on Anahi 01/07/23 at 1414, Until Discontinued, Line Care, After every IV line use For Line Patency: Peripheral IV = 5 mL; Midline or Central Line = 10 mL/lumen. If following IV push medication, administer flush at same rate as the IV push. Flush volume is determined by type of infusion therapy being given. For non-viscous solutions use: Peripheral IV = 5 mL Midline or Central Line = 10 mL/lumen For viscous solutions (i.e. blood components, parenteral nutrition, contrast media, or after obtaining blood sample) use: Peripheral IV = 10 mL Midline or Central Line = 20 mL/lumen Completed/Discontinued Medications Medication Drug Class(es) Dates Sig (Normalized) Sig (Original) aluminum hydroxide 40 mg/ml / magnesium hydroxide 40 mg/ml / simethicone 4 mg/ml oral suspension (1 source) Start: 3 End: 3 aluminum & magnesium hydroxide-simethicon e (MAALOX) 200-200-20 MG/5ML suspension 30 mL chlordiazePOXIDE hydrochloride 5 mg / clidinium bromide 2.5 mg oral capsule (1 source) Anticholinergic, Benzodiazepine Start: 8 End: 3 take 1 capsule by mouth four times daily before mealtime, then take 5 capsules by mouth once chlordiazePOXIDE-cli dinium (LIBRAX) 5-2.5 MG per capsule Indications: Gastroesophageal reflux disease, esophagitis presence not specified , Epigastric pain , Abdominal pain, unspecified abdominal location , Intractable cyclical vomiting with nausea Take 1 capsule by mouth 4 times daily (before meals and nightly) for 30 days.. 120 capsule 1 06/01/2018 01/07/2023 Discontinued (LIST CLEANUP) citalopram 10 mg oral tablet (1 source) Serotonin Reuptake Inhibitor End: 3 take 1 tablet by mouth once daily citalopram (CELEXA) 10 MG tablet Take 10 mg by mouth daily 0 01/07/2023 Discontinued (LIST CLEANUP) famotidine 20 mg oral tablet (1 source) Histamine-2 Receptor Antagonist End: 3 take 1 tablet by mouth twice daily famotidine (PEPCID) 20 MG tablet Take 20 mg by mouth 2 times daily 0 01/07/2023 Discontinued (LIST CLEANUP) 1 ml HYDROmorphone hydrochloride 1 mg/ml cartridge (1 source) Opioid Agonist Start: End: HYDROmorphone (DILAUDID) injection 1 mg Start: 01-07-2023 End: 01-07-2023 HYDROmorphone (DILAUDID) inj ection 1 mg iopamidol (ISOVUE-370) 76 % injection 75 mL (1 source) Start: 01-07-2023 End: 01-07-2023 iopamidol (ISOVUE-370) 76 % injection 75 mL Norgestim-Eth Estrad Triphasic (ORTHO TRI-CYCLEN, 28, PO) (1 source) End: 01-07-2023 take 1 tablet by mouth once daily Norgestim-Eth Estrad Triphasic (ORTHO TRI-CYCLEN, 28, PO) Take 1 tablet by mouth daily 0 01/07/2023 Discontinued (LIST CLEANUP) ondansetron 4 mg oral tablet (1 source) Serotonin-3 Receptor Antagonist End: 01-07-2023 take 1 tablet by mouth every eight hours as needed for nausea ondansetron (ZOFRAN) 4 MG tablet Take 4 mg by mouth every 8 hours as needed for Nausea or Vomiting 0 01/07/2023 Discontinued (LIST CLEANUP) Problems Active Problems Problem Classification Problem Date Documented Da te Episodic/Chronic Esophageal disorders (2 sources) Gastroesophageal reflux disease; Translations: [Gastro-esophageal reflux disease without esophagitis] Onset: 8 01-27-2018 Chronic Esophageal disorders (2 sources) Esophageal disorders; Translations: [GERD EPIGASTRIC PAIN (PAT PER ANES ON ADMIT)] Onset: 8 Fluid and electrolyte disorders (1 source) Hypokalemia; Translations: [Hypokalemia] Onset: 4 Episodic Genitourinary congenital anomalies (12 sources) Bicornate uterus; 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, other specified] Onset: 3 Chronic Headache, including migraine (1 source) Cyclical vomiting, not intractable; Translations: [Cyclical vomiting, not intractable] Onset: 8 Chronic Inflammatory diseases of female pelvic organs (1 source) Acute vaginitis; Translations: [Acute vaginitis] Onset: 4 Episodic Menstrual disorders (1 source) Irregular menstruation, unspecified; Translations: [IRREGULAR MENSTRUATION UNSPECIFIED] Onset: 3 Chronic Nausea and vomiting (2 sources) Nausea; Translations: [Vomiting] Onset: 3 Episodic Nutritional deficiencies (2 sources) Undernutrition; Translations: [Mild protein-calorie malnutrition] Onset: 8 05-28-2018 Chronic Other complications of (4 sources) Abdominal pain in ; Translations: [Other specified related conditions, unspecified trimester] Onset: 3 Episodic Other complications of (1 source) Other specified related conditions, second trimester; Translations: [OTH SPEC PREG RELATED COND 2ND TRI] Onset: 3 Episodic Other complications of (2 sources) Maternal care for unspecified congenital malformation of uterus, second trimester; Translations: [MAT CARE UNS CONGN MAL UT 2ND TRI] Onset: 3 Episodic Other complications of (1 source) Smoking (tobacco) complicating , second trimester; Translations: [SMOKING TOBACCO COMP PREG 2ND TRI] Onset: 3 Episodic Other complications of (5 sources) Maternal care for unspecified congenital malformation of uterus, first trimester; Translations: [[facility] C[facility]] Onset: 3 Episodic Other complications of (2 sources) Other specified related conditions, unspecified trimester; Translations: [Other specified related conditions, unspecified trimester] Onset: 3 Episodic Other female genital disorders (1 source) Abnormal uterine bleeding; Translations: [Abnormal uterine and vaginal bleeding, unspecified] Onset: 3 05-05-2023 Chronic Other female genital disorders (1 source) Vaginal discharge Onset: 4 Episodic Other gastrointestinal disorders (2 sources) Constipation; Translations: [Other constipation] Onset: 3 Episodic Other gastrointestinal disorders (1 source) Constipation, unspecified; Translations: [CONSTIPATION UNSPECIFIED] Onset: 3 Episodic Other and delivery including normal (8 sources) Encounter for supervision of other normal , second trimester; Translations: [Encounter for supervision of normal , unspecified, unspecified trimester] Onset: 3 Episodic Residual codes; unclassified (2 sources) Gestation period, 19 weeks; Translations: [19 weeks gestation of ] Onset: 3 Episodic Residual codes; unclassified (1 source) 18 weeks gestation of ; Translations: [18 WEEKS GESTATION OF ] Onset: 3 Episodic Residual codes; unclassified (1 source) 19 weeks gestation of ; Translations: [19 WEEKS GESTATION OF ] Onset: 3 Episodic Residual codes; unclassified (1 source) 15 weeks gestation of ; Translations: [15 WEEKS GESTATION OF ] Onset: 3 Episodic Residual codes; unclassified (1 source) Weeks of gestation of not specified; Translations: [WEEKS GESTATION NOT SPEC] Onset: 3 Episodic Residual codes; unclassified (1 source) Other specified personal risk factors, not elsewhere classified; Translations: [Other specified personal risk factors, not elsewhere classified] Onset: 4 Episodic Screening and history of mental health and substance abuse codes (1 source) Personal history of nicotine dependence; Translations: [PERSONAL HISTORY OF NICOTINE DEPEND] Onset: 3 Episodic Spondylosis; intervertebral disc disorders; other back problems (3 sources) Degeneration of lumbar intervertebral disc; Translations: [Disc degeneration, lumbar] Onset: 0 05-05-2023 Chronic Substance-related disorders (5 sources) Cannabis abuse, uncomplicated; Translations: [Cannabis abuse] Onset: 8 05-27-2018 Chronic Unclassified (1 source) abdominal pain, lightheaded, nausea Onset: 4 Past or Other Problems Problem Classification Problem Date Documented Date Episodic/Chronic Abdominal pain (14 sources) Abdominal pain; Translations: [Unspecified abdominal pain] Onset: 01-27-2018 Episodic Immunizations and screening for infectious disease (1 source) Encounter for screening for human papillomavirus (HPV); Translations: [ENC SCREENING HUMAN PAPILLOMAVIRUS] Onset: 09-13-2022 Episodic Other and unspecified benign neoplasm (1 source) Leiomyoma; Translations: [Benign neoplasm of connective and other soft tissue, unspecified] Onset: 05-05-2023 05-05-2023 Episodic Other complications of (3 sources) Maternal obesity complicating , childbirth and the puerperium, antepartum; Translations: [Obesity complicating , second trimester] Onset: 01-08-2023 Resolved: 05-24-2023 Chronic Other complications of (3 sources) Congenital abnormality of uterus, affecting ; Translations: [Maternal care for other abnormalities of gravid uterus, second trimester] Onset: 01-08-2023 Resolved: 05-24-2023 Episodic Other disorders of stomach and duodenum (2 sources) Cyclical vomiting syndrome; Translations: [Cyclical vomiting syndrome unrelated to migraine] Onset: 05-05-2023 05-27-2018 Episodic Other screening for suspected conditions (not mental disorders or infectious disease) (8 sources) Patient encounter status; Translations: [Encounter for screening for other disorder] Onset: 09-10-2022 Episodic Other skin disorders (1 source) Tonja incarnati; 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 This does not exclude the possibility of infection because results are dependent on adequate specimen collection. GONORRHOEAE PCR, U Negative (qualifier value) Neisseria gonorrhoeae not detected by nucleic acid amplification. This does not exclude the possibility of infection because results are dependent on adequate specimen collection. Normal [facility] Comment on above: Performed By: #### N UM #### [facility] ([id number]) [address] [place] [address], [place] [address] HCG ( test) Ql (U)o n 06-28-2024 Beta HCG ( test) Ql (U) Negative Normal NEG [facility] Comment on above: Performed By: #### N UM #### [facility] ([id number]) [address] [place] [address] URN MACROSCOPIC NURon 2023 BILIRUBIN IDALMIS Small Abnormal NEG [facility] Comment on above: Performed By: #### N UM #### [facility] ([id number]) [address] [place] [address] 70422 BLOOD/HGB IDALMIS Trace Abnormal NEG [facility] Comment on above: Performed By: #### N UM #### [facility] ([id number]) [address] [place] [address] 02804 GLUCOSE IDALMIS Negative Normal NEG [facility] Comment on above: Performed By: #### N UM #### [facility] ([id number]) [address] [place] [address] [place] [address] KETONES IDALMIS Negative Normal NEG [facility] Comment on above: Performed By: #### N UM #### [facility] ([id number]) [address] [place] [address] [place] [address] LEUKOCYTE ESTERASE IDALMIS Negative Normal NEG [facility] Comment on above: Performed By: #### N UM #### [facility] ([id number]) [address] [place] [address] 46440 NITRITE IDALMIS Negative Normal NEG [facility] Comment on above: Performed By: #### N UM #### [facility] ([id number]) [address] [place] [address] 52350 PH IDALMIS 5.5 Normal 5.0-8.5 [facility] Comment on above: Performed By: #### N UM #### [facility] ([id number]) [address] [place] [address] 66483 PROTEIN IDALMIS 30 mg/dL Abnormal NEG [facility] Comment on above: Performed By: #### N UM #### [facility] ([id number]) [address] [place] [address] 83012 SPECIFIC GRAVITY IDALMIS >=1.030 Normal 1.003-1.03 5 [facility] Comment on above: Performed By: #### N UM #### [facility] ([id number]) [address] [place] [address] 50649 UROBILINOGEN IDALMIS 0.2 eu/dL Normal <1.1 [facility] Comment on above: Performed By: #### N UM #### [facility] ([id number]) [address] [place] [address] 67930 CBC AND AUTO DIFFon 06-11-20 24 ABSOLUTE BASOPHIL 0.1 X10E9/L Normal 0.0-0.2 [facility] Comment on above: Performed By: #### N UM #### [facility] ([id number]) [address] [place] [address] 69846 ABSOLUTE NEUTROPHIL 3.2 X10E9/L Normal 1.5-6.6 [facility] Comment on above: Performed By: #### N UM #### [facility] ([id number]) [address] [place] [address] 14600 Basophils/100 WBC (Bld) 0.8 % Normal [facility] Comment on above: Performed By: #### N UM #### [facility] ([id number]) [address] [place] [address] 26239 Eosinophils (Bld) [#/Vol] 0.2 10*3/uL Normal 0.0-0.4 [facility] Comment on above: Performed By: #### N UM #### [facility] ([id number]) [address] [place] [address] 76244 Eosinophils/100 WBC (Bld) 3.1 % Normal [facility] Comment on above: Performed By: #### N UM #### [facility] ([id number]) [address] [place] [address] 32965 Erythrocyte distribution width (RBC) [Ratio] 13.6 % Normal 11.5-15.0 [facility] Comment on above: Performed By: #### N UM #### [facility] ([id number]) [address] [place] [address] 60369 Hematocrit (Bld) [Volume fraction] 38.6 % Normal 35-47 [facility] Comment on above: Performed By: #### N UM #### [facility] ([id number]) [address] [place] [address] 77736 Hemoglobin (Bld) [Mass/Vol] 12.8 g/dL Normal 11.7-15.5 [facility] Comment on above: Performed By: #### N UM #### [facility] ([id number]) [address] [place] [address] 13258 Lymphocytes (Bld) [#/Vol] 3.8 10*3/uL High 1.0-3.5 [facility] Comment on above: Performed By: #### N UM #### [facility] ([id number]) [address] [place] [address] 20368 Lymphocytes/100 WBC (Bld) 47.9 % Normal [facility] Comment on above: Performed By: #### N UM #### [facility] ([id number]) [address] [place] [address] 43089 MCH (RBC) [Entitic mass] 29.7 pg Normal 27-34 [facility] Comment on above: Performed By: #### N UM #### [facility] ([id number]) [address] [place] [address] 09256 MCHC (RBC) [Mass/Vol] 33.1 g/dL Normal 32-36 [facility] Comment on above: Performed By: #### N UM #### [facility] ([id number]) [address] [place] [address] 14104 MCV (RBC) [Entitic vol] 90 fL Normal 80-100 [facility] Comment on above: Performed By: #### N UM #### [facility] ([id number]) [address] [place] [address] 61009 Monocytes (Bld) [#/Vol] 0.6 10*3/uL Normal 0-0.9 [facility] Comment on above: Performed By: #### N UM #### [facility] ([id number]) [address] [place] [address] 51778 Monocytes/100 WBC (Bld) 7.9 % Normal [facility] Comment on above: Performed By: #### N UM #### [facility] ([id number]) [address] [place] [address] 21525 Neutrophils/100 WBC (Bld) 40.3 % Normal [facility] Comment on above: Performed By: #### N UM #### [facility] ([id number]) [address] [place] [address] 59869 Platelet mean volume (Bld) [Entitic vol] 10.0 fL Normal 7-12 [facility] Comment on above: Performed By: #### N UM #### [facility] ([id number]) [address] [place] [address] 22443 Platelets (Bld) [#/Vol] 217 10*3/uL Normal 150-450 [facility] Comment on above: Performed By: #### N UM #### [facility] ([id number]) [address] [place] [address] 18397 RBC COUNT 4.32 X10E12/L Normal 3.80-5.20 [facility] Comment on above: Performed By: #### N UM #### [facility] ([id number]) [address] [place] [address] 60790 WBC (Bld) [#/Vol] 8.0 10*3/uL Normal 4.0-11.0 [facility] Comment on above: Performed By: #### N UM #### [facility] ([id number]) [address] [place] [address] 89480 COMPREHENSIVE METABOLIC PANE Guzman 06-11-2024 Albumin [Mass/Vol] 3.4 g/dL Normal 3.2-5.3 [facility] Comment on above: Performed By: #### N UM #### [facility] ([id number]) [address] [place] [address] 51715 ALP [Catalytic activity/Vol] 37 U/L Low 39-130 [facility] Comment on above: Performed By: #### N UM #### [facility] ([id number]) [address] [place] [address] 12952 ALT [Catalytic activity/Vol] 24 U/L Normal 0-31 [facility] Comment on above: Performed By: #### N UM #### [facility] ([id number]) [address] [place] [address] 92530 Anion gap [Moles/Vol] 7 mmol/L Normal 5-15 [facility] Comment on above: Performed By: #### N UM #### [facility] ([id number]) [address] [place] [address] 15385 AST [Catalytic activity/Vol] 15 U/L Normal 0-41 [facility] Comment on above: Performed By: #### N UM #### [facility] ([id number]) [address] [place] [address] 92229 Bilirubin [Mass/Vol] 0.4 mg/dL Normal 0.3-1.2 [facility] Comment on above: Performed By: #### N UM #### [facility] ([id number]) [address] [place] [address] 78464 Calcium [Mass/Vol] 8.5 mg/dL Normal 8.5-10.5 [facility] Comment on above: Performed By: #### N UM #### [facility] ([id number]) [address] [place] [address] 28600 Chloride [Moles/Vol] 108 mmol/L Normal 98-109 [facility] Comment on above: Performed By: #### N UM #### [facility] ([id number]) [address] [place] [address] 56421 CO2 [Moles/Vol] 25 mmol/L Normal 22-32 [facility] Comment on above: Performed By: #### N UM #### [facility] ([id number]) [address] [place] [address] 07699 Creatinine [Mass/Vol] 0.71 mg/dL Normal 0.40-1.00 [facility] Comment on above: Result Comment: METH OD TRACEABLE TO IDMS STANDARD Performed By: #### N UM #### [facility] ([id number]) [address] [place] [address] 64776 eGFR (CKD-EPI) NON-RACE DEPENDENT >90 Normal >59 [facility] Comment on above: Result Comment: Reported eGFR is based on the CKD-EPI 2021 equation that does not use a race coefficient. Performed By: #### N UM #### [facility] ([id number]) [address] [place] [address] 60448 Glucose [Mass/Vol] 90 mg/dL Normal 65-99 [facility] Comment on above: Performed By: #### N UM #### [facility] ([id number]) [address] [place] [address] 76271 Potassium [Moles/Vol] 3.7 mmol/L Normal 3.5-5.0 [facility] Comment on above: Performed By: #### N UM #### [facility] ([id number]) [address] [place] [address] 02407 Protein [Mass/Vol] 6.1 g/dL Normal 6.0-8.0 [facility] Comment on above: Performed By: #### N UM #### [facility] ([id number]) [address] [place] [address] 59797 Sodium [Moles/Vol] 140 mmol/L Normal 134-146 [facility] Comment on above: Performed By: #### N UM #### [facility] ([id number]) [address] [place] [address] 31634 Urea nitrogen [Mass/Vol] 8 mg/dL Normal 5-23 [facility] Comment on above: Performed By: #### N UM #### [facility] ([id number]) [address] [place] [address] 60414 MAGNESIUMon 06-11-2024 Magnesium [Mass/Vol] 2.1 mg/dL Normal 1.8-2.6 [facility] Comment on above: Performed By: #### N UM #### [facility] ([id number]) [address] [place] [address] 49181 CBC AND AUTO DIFFon 06-10-20 24 ABSOLUTE BASOPHIL 0.1 X10E9/L Normal 0.0-0.2 [facility] Comment on above: Performed By: #### C BONILLA CMP, 55954-8 #### [facility] ([id number]) [address] [place] [address] 29036 ABSOLUTE NEUTROPHIL 3.9 X10E9/L Normal 1.5-6.6 [facility] Comment on above: Performed By: #### C BONILLA CMP, #### [facility] ([id number]) [address] [place] [address] 61134 Basophils/100 WBC (Bld) 0.9 % Normal [facility] Comment on above: Performed By: #### Nas CRYSTAL CMP, #### [facility] ([id number]) [address] [place] [address] 96441 Eosinophils (Bld) [#/Vol] 0.2 10*3/uL Normal 0.0-0.4 [facility] Comment on above: Performed By: #### Nas CRYSTAL CMP, #### [facility] ([id number]) [address] [place] [address] 11372 Eosinophils/100 WBC (Bld) 2.3 % Normal [facility] Comment on above: Performed By: #### Nas CRYSTAL [facility], #### [facility] ([id number]) [address] [place] [address] 27839 Erythrocyte distribution width (RBC) [Ratio] 13.5 % Normal 11.5-15.0 [facility] Comment on above: Performed By: #### Nas CRYSTAL [facility], #### [facility] ([id number]) [address] [place] [address] 02933 Hematocrit (Bld) [Volume fraction] 40.8 % Normal 35-47 [facility] Comment on above: Performed By: #### Nas CRYSTAL CMP, #### [facility] ([id number]) [address] [place] [address] 46745 Hemoglobin (Bld) [Mass/Vol] 13.7 g/dL Normal 11.7-15.5 [facility] Comment on above: Performed By: #### Nas CRYSTAL CMP, #### [facility] ([id number]) [address] [place] [address] 65231 Lymphocytes (Bld) [#/Vol] 3.2 10*3/uL Normal 1.0-3.5 [facility] Comment on above: Performed By: #### Nas CRYSTAL [facility], #### [facility] ([id number]) [address] [place] [address] 19738 Lymphocytes/100 WBC (Bld) 39.0 % Normal [facility] Comment on above: Performed By: #### Nas CRYSTAL [facility], #### [facility] ([id number]) [address] [place] [address] 78389 MCH (RBC) [Entitic mass] 29.6 pg Normal 27-34 [facility] Comment on above: Performed By: #### Nas CRYSTAL CMP, #### [facility] ([id number]) [address] [place] [address] 42513 MCHC (RBC) [Mass/Vol] 33.5 g/dL Normal 32-36 [facility] Comment on above: Performed By: #### Nas CRYSTAL [facility], #### [facility] ([id number]) [address] [place] [address] 32034 MCV (RBC) [Entitic vol] 88 fL Normal 80-100 [facility] Comment on above: Performed By: #### Nas CRYSTAL [facility], #### [facility] ([id number]) [address] [place] [address] 72370 Monocytes (Bld) [#/Vol] 0.8 10*3/uL Normal 0-0.9 [facility] Comment on above: Performed By: #### Nas CRYSTAL CMP, #### [facility] ([id number]) [address] [place] [address] 66997 Monocytes/100 WBC (Bld) 10.3 % Normal [facility] Comment on above: Performed By: #### C BONILLA, CMP, 70164-2 #### [facility] ([id number]) [address] [place] [address] 62327 Neutrophils/100 WBC (Bld) 47.5 % Normal [facility] Comment on above: Performed By: #### C BCA, CMP, 56135-8 #### [facility] ([id number]) [address] [place] [address] 85224 Platelet mean volume (Bld) [Entitic vol] 9.5 fL Normal 7-12 [facility] Comment on above: Performed By: #### C BONILLA, CMP, 01727-8 #### [facility] ([id number]) [address] [place] [address] 48923 Platelets (Bld) [#/Vol] 221 10*3/uL Normal 150-450 [facility] Comment on above: Performed By: #### C BCA, CMP, 03275-0 #### [facility] ([id number]) [address] [place] [address] 82591 RBC COUNT 4.63 X10E12/L Normal 3.80-5.20 [facility] Comment on above: Performed By: #### C BCA, CMP, 17349-3 #### [facility] ([id number]) [address] [place] [address] 60951 WBC (Bld) [#/Vol] 8.1 10*3/uL Normal 4.0-11.0 [facility] Comment on above: Performed By: #### C BONILLA, CMP, 13676-7 #### [facility] ([id number]) [address] [place] [address] 03129 COMPREHENSIVE METABOLIC PANE Guzman 06-10-2024 Albumin [Mass/Vol] 3.4 g/dL Normal 3.2-5.3 [facility] Comment on above: Performed By: #### N UM #### [facility] ([id number]) [address] [place] [address] 47158 ALP [Catalytic activity/Vol] 41 U/L Normal 39-130 [facility] Comment on above: Performed By: #### N UM #### [facility] ([id number]) [address] [place] [address] 39558 ALT [Catalytic activity/Vol] 26 U/L Normal 0-31 [facility] Comment on above: Performed By: #### N UM #### [facility] ([id number]) [address] [place] [address] 56256 Anion gap [Moles/Vol] 9 mmol/L Normal 5-15 [facility] Comment on above: Performed By: #### N UM #### [facility] ([id number]) [address] [place] [address] [place] [address] AST [Catalytic activity/Vol] 19 U/L Normal 0-41 [facility] Comment on above: Performed By: #### N UM #### [facility] ([id number]) [address] [place] [address] 19422 Bilirubin [Mass/Vol] 0.9 mg/dL Normal 0.3-1.2 [facility] Comment on above: Performed By: #### N UM #### [facility] ([id number]) [address] [place] [address] [place] [address] Calcium [Mass/Vol] 8.2 mg/dL Low 8.5-10.5 [facility] Comment on above: Performed By: #### N UM #### [facility] ([id number]) [address] [place] [address] 39261 Chloride [Moles/Vol] 100 mmol/L Normal 98-109 [facility] Comment on above: Performed By: #### N UM #### [facility] ([id number]) [address] [place] [address] 90714 CO2 [Moles/Vol] 28 mmol/L Normal 22-32 [facility] Comment on above: Performed By: #### N UM #### [facility] ([id number]) [address] [place] [address] 77015 Creatinine [Mass/Vol] 0.82 mg/dL Normal 0.40-1.00 [facility] Comment on above: Result Comment: METH OD TRACEABLE TO IDMS STANDARD Performed By: #### N UM #### [facility] ([id number]) [address] [place] [address] 31055 eGFR (CKD-EPI) NON-RACE DEPENDENT >90 Normal >59 [facility] Comment on above: Result Comment: Reported eGFR is based on the CKD-EPI 2020 equation that does not use a race coefficient. Performed By: #### N UM #### [facility] ([id number]) [address] [place] [address] 06583 Glucose [Mass/Vol] 101 mg/dL High 65-99 [facility] Comment on above: Performed By: #### N UM #### [facility] ([id number]) [address] [place] [address] 84691 Potassium [Moles/Vol] 3.1 mmol/L Low 3.5-5.0 [facility] Comment on above: Performed By: #### N UM #### [facility] ([id number]) [address] [place] [address] 42810 Protein [Mass/Vol] 6.3 g/dL Normal 6.0-8.0 [facility] Comment on above: Performed By: #### N UM #### [facility] ([id number]) [address] [place] [address] 01335 Sodium [Moles/Vol] 137 mmol/L Normal 134-146 [facility] Comment on above: Performed By: #### N UM #### [facility] ([id number]) [address] [place] [address] 35454 Urea nitrogen [Mass/Vol] 8 mg/dL Normal 5-23 [facility] Comment on above: Performed By: #### N UM #### [facility] ([id number]) [address] [place] [address] 76034 MAGNESIUMon 06-10-2024 Magnesium [Mass/Vol] 2.3 mg/dL Normal 1.8-2.6 [facility] Comment on above: Performed By: #### N UM #### [facility] ([id number]) [address] [place] [address] 77015 POTASSIUMon 06-10-2024 Potassium [Moles/Vol] 3.7 mmol/L Normal 3.5-5.0 [facility] Comment on above: Performed By: #### N UM #### [facility] ([id number]) [address] [place] [address] 81049 CBC AND AUTO DIFFon 06-09-20 24 ABSOLUTE BASOPHIL 0.1 X10E9/L Normal 0.0-0.2 [facility] Comment on above: Performed By: #### C BONILLA, CMP, 3039-11, 14060-1 #### [facility] ([id number]) [address] [place] [address] 94647 ABSOLUTE NEUTROPHIL 6.3 X10E9/L Normal 1.5-6.6 [facility] Comment on above: Performed By: #### C BONILLA, CMP, 3039-11, #### [facility] ([id number]) [address] [place] [address] 59956 Basophils/100 WBC (Bld) 0.6 % Normal [facility] Comment on above: Performed By: #### C BCA, CMP, 3039-11, #### [facility] ([id number]) [address] [place] [address] 38635 Eosinophils (Bld) [#/Vol] 0.1 10*3/uL Normal 0.0-0.4 [facility] Comment on above: Performed By: #### C DI CRYSTAL, 3039-11, #### [facility] ([id number]) [address] [place] [address] 06235 Eosinophils/100 WBC (Bld) 1.1 % Normal [facility] Comment on above: Performed By: #### Nas CRYSTAL [facility], 3039-11, #### [facility] ([id number]) [address] [place] [address] 41643 Erythrocyte distribution width (RBC) [Ratio] 13.3 % Normal 11.5-15.0 [facility] Comment on above: Performed By: #### Nas CRYSTAL [facility], 3039-11, #### [facility] ([id number]) [address] [place] [address] 72741 Hematocrit (Bld) [Volume fraction] 47.9 % High 35-47 [facility] Comment on above: Performed By: #### Nas CRYSTAL CMP, 3039-11, #### [facility] ([id number]) [address] [place] [address] 03067 Hemoglobin (Bld) [Mass/Vol] 16.2 g/dL High 11.7-15.5 [facility] Comment on above: Performed By: #### Nas CRYSTAL CMP, 3039-11, #### [facility] ([id number]) [address] [place] [address] 14576 Lymphocytes (Bld) [#/Vol] 2.6 10*3/uL Normal 1.0-3.5 [facility] Comment on above: Performed By: #### C BCA, CMP, 3, #### [facility] ([id number]) [address] [place] [address] 12262 Lymphocytes/100 WBC (Bld) 25.8 % Normal [facility] Comment on above: Performed By: #### C BCA, CMP, 3039-11, #### [facility] ([id number]) [address] [place] [address] 26502 MCH (RBC) [Entitic mass] 29.5 pg Normal 27-34 [facility] Comment on above: Performed By: #### C BCA, CMP, 3039-11, #### [facility] ([id number]) [address] [place] [address] 87814 MCHC (RBC) [Mass/Vol] 33.8 g/dL Normal 32-36 [facility] Comment on above: Performed By: #### C BCA, CMP, 3039-11, #### [facility] ([id number]) [address] [place] [address] 30567 MCV (RBC) [Entitic vol] 87 fL Normal 80-100 [facility] Comment on above: Performed By: #### C BCA, CMP, 3039-11, #### [facility] ([id number]) [address] [place] [address] 98355 Monocytes (Bld) [#/Vol] 0.9 10*3/uL Normal 0-0.9 [facility] Comment on above: Performed By: #### C BCA, CMP, 3039-11, #### [facility] ([id number]) [address] [place] [address] 94814 Monocytes/100 WBC (Bld) 9.4 % Normal [facility] Comment on above: Performed By: #### C BCA, CMP, 3039-11, #### [facility] ([id number]) [address] [place] [address] 50986 Neutrophils/100 WBC (Bld) 63.1 % Normal [facility] Comment on above: Performed By: #### C BONILLA, CMP, 3039-11, #### [facility] ([id number]) [address] [place] [address] 10811 Platelet mean volume (Bld) [Entitic vol] 10.0 fL Normal 7-12 [facility] Comment on above: Performed By: #### C BONILLA, CMP, 3039-11, #### [facility] ([id number]) [address] [place] [address] 57386 Platelets (Bld) [#/Vol] 290 10*3/uL Normal 150-450 [facility] Comment on above: Performed By: #### C BONILLA, CMP, 3039-11, #### [facility] ([id number]) [address] [place] [address] 60062 RBC COUNT 5.48 X10E12/L High 3.80-5.20 [facility] Comment on above: Performed By: #### C BONILLA, CMP, 3039-11, #### [facility] ([id number]) [address] [place] [address] 33376 WBC (Bld) [#/Vol] 10.0 10*3/uL Normal 4.0-11.0 [facility] Comment on above: Performed By: #### C BCA, CMP, 3039-11, #### [facility] ([id number]) [address] [place] [address] 91293 COMPREHENSIVE METABOLIC PANE Guzman 06-09-2024 Albumin [Mass/Vol] 4.4 g/dL Normal 3.2-5.3 [facility] Comment on above: Performed By: #### C BCA, CMP, 3039-11, 76335-6 #### [facility] ([id number]) [address] [place] [address] 07639 ALP [Catalytic activity/Vol] 51 U/L Normal 39-130 [facility] Comment on above: Performed By: #### C BCA, CMP, 3039-11, #### [facility] ([id number]) [address] [place] [address] 31407 ALT [Catalytic activity/Vol] 32 U/L High 0-31 [facility] Comment on above: Performed By: #### C BCA, CMP, 3039-11, 53642-0 #### [facility] ([id number]) [address] [place] [address] 41728 Anion gap [Moles/Vol] 12 mmol/L Normal 5-15 [facility] Comment on above: Performed By: #### C BCA, CMP, 3039-11, 57773-0 #### [facility] ([id number]) [address] [place] [address] 09552 AST [Catalytic activity/Vol] 25 U/L Normal 0-41 [facility] Comment on above: Performed By: #### C BCA, CMP, 3039-11, 30777-8 #### [facility] ([id number]) [address] [place] [address] 20567 Bilirubin [Mass/Vol] 1.1 mg/dL Normal 0.3-1.2 [facility] Comment on above: Performed By: #### C BCA, CMP, 3039-11, 15981-3 #### [facility] ([id number]) [address] [place] [address] 34891 Calcium [Mass/Vol] 9.0 mg/dL Normal 8.5-10.5 [facility] Comment on above: Performed By: #### C DI CRYSTAL, 3039-11, 70523-3 #### [facility] ([id number]) [address] [place] [address] 98807 Chloride [Moles/Vol] 92 mmol/L Low 98-109 [facility] Comment on above: Performed By: #### C DI CRYSTAL, 3039-11, #### [facility] ([id number]) [address] [place] [address] 46725 CO2 [Moles/Vol] 29 mmol/L Normal 22-32 [facility] Comment on above: Performed By: #### C DI CRYSTAL, 3039-11, 36585-5 #### [facility] ([id number]) [address] [place] [address] 92246 Creatinine [Mass/Vol] 0.92 mg/dL Normal 0.40-1.00 [facility] Comment on above: Result Comment: METH OD TRACEABLE TO IDMS STANDARD Performed By: #### C DI CRYSTAL, 3039-11, 37802-1 #### [facility] ([id number]) [address] [place] [address] 02459 GFR/1.73 sq M.predicted among non-blacks MDRD (S/P/Bld) [Vol rate/Area] 84 mL/min/{1.73_m2} Normal >59 [facility] Comment on above: Result Comment: Reported eGFR is based on the CKD-EPI 2020 equation that does not use a race coefficient. Performed By: #### C DI CRYSTAL, 3039-11, 21281-9 #### [facility] ([id number]) [address] [place] [address] 78210 Glucose [Mass/Vol] 107 mg/dL High 65-99 [facility] Comment on above: Performed By: #### C BONILLA CMP, 3039-11, 49867-3 #### [facility] ([id number]) [address] [place] [address] 01648 Potassium [Moles/Vol] 2.2 mmol/L Critically low 3.5-5.0 [facility] Comment on above: Performed By: #### C BONILLA, [facility], 3040-3, #### [facility] ([id number]) [address] [place] [address] 54643 Protein [Mass/Vol] 8.2 g/dL High 6.0-8.0 [facility] Comment on above: Performed By: #### C BONILLA [facility], 0-3, #### [facility] ([id number]) [address] [place] [address] 27908 Sodium [Moles/Vol] 133 mmol/L Low 134-146 [facility] Comment on above: Performed By: #### C BONILLA [facility], 3, #### [facility] ([id number]) [address] [place] [address] 48128 Urea nitrogen [Mass/Vol] 12 mg/dL Normal 5-23 [facility] Comment on above: Performed By: #### C BONILLA [facility], 0-3, #### [facility] ([id number]) [address] [place] [address] 56135 ELECTROLYTESon 06-09-2024 Anion gap [Moles/Vol] 15 mmol/L Normal 5-15 [facility] Comment on above: Performed By: #### E LEC #### [facility] ([id number]) [address] [place] [address] 03269 Chloride [Moles/Vol] 96 mmol/L Low 98-109 [facility] Comment on above: Performed By: #### E LEC #### [facility] ([id number]) [address] [place] [address] 65184 CO2 [Moles/Vol] 26 mmol/L Normal 22-32 [facility] Comment on above: Performed By: #### E LEC #### [facility] ([id number]) [address] [place] [address] 58041 Potassium [Moles/Vol] 2.8 mmol/L Low 3.5-5.0 [facility] Comment on above: Performed By: #### E LEC #### [facility] ([id number]) [address] [place] [address] [id number] Sodium [Moles/Vol] 137 mmol/L Normal 134-146 [facility] Comment on above: Performed By: #### E LEC #### [facility] ([id number]) [address] [place] [address] 14493 HCG ( test) Ql (U)o n 06-09-2024 Beta HCG ( test) Ql (U) Negative Normal NEG [facility] Comment on above: Performed By: #### 2 106-3 #### [facility] ([id number]) [address] [place] [address] 10648 LIPASEon 06-09-2024 Lipase [Catalytic activity/Vol] 25 U/L Normal 17-40 [facility] Comment on above: Performed By: #### C DI CRYSTAL, 0-3, 08389-3 #### [facility] ([id number]) [address] [place] [address] MAGNESIUMon 06-09-2024 Magnesium [Mass/Vol] 2.3 mg/dL Normal 1.8-2.6 [facility] Comment on above: Performed By: #### C BONILLA CMP, 3039-3, 11874-9 #### [facility] ([id number]) [address] [place] [address] 19508 UA (MICROSCOPIC)on 4 R.B.CELLS 75 /hpf High 0-5 [facility] Comment on above: Performed By: #### U SILVER #### [facility] ([id number]) [address] [place] [address], [place] [address] SQUAMOUS EPITHELIUM 5 /hpf Normal 0-5 [facility] Comment on above: Performed By: #### U SILVER #### [facility] ([id number]) [address] [place] [address] [place] [address] W.B.CELLS 3 /hpf Normal 0-5 [facility] Comment on above: Performed By: #### U SILVER #### [facility] ([id number]) [address] [place] [address] URINE CULTUREon 06-09-2024 Bacteria identified Cx Nom (U) CULTURE RESULTS 10-50,000 ORGANISMS/mL NORMAL UROGENITAL DERRELL Normal [facility] Comment on above: Performed By: #### N UM #### [facility] ([id number]) [address] [place] [address] [place] [address] URN MACROSCOPIC NURon 2023 BILIRUBIN IDALMIS Small Abnormal NEG [facility] Comment on above: Performed By: #### N UM #### [facility] ([id number]) [address] [place] [address] [place] [address] BLOOD/HGB IDALMIS Large Abnormal NEG [facility] Comment on above: Performed By: #### N UM #### [facility] ([id number]) [address] [place] [address] [place] [address] GLUCOSE IDALMIS Negative Normal NEG [facility] Comment on above: Performed By: #### N UM #### [facility] ([id number]) [address] [place] [address] [place] [address] KETONES IDALMIS 15 mg/dL Abnormal NEG [facility] Comment on above: Performed By: #### N UM #### [facility] ([id number]) [address] [place] [address] LEUKOCYTE ESTERASE IDALMIS Trace Abnormal NEG [facility] Comment on above: Performed By: #### N UM #### [facility] ([id number]) [address] [place] [address] NITRITE IDALMIS Negative Normal NEG [facility] Comment on above: Performed By: #### N UM #### [facility] ([id number]) [address] [place] [address] PH IDALMIS 6.5 Normal 5.0-8.5 [facility] Comment on above: Performed By: #### N UM #### [facility] ([id number]) [address] [place] [address] PROTEIN IDALMIS 100 mg/dL Abnormal NEG [facility] Comment on above: Performed By: #### N UM #### [facility] ([id number]) [address] [place] [address] SPECIFIC GRAVITY IDALMIS 1.010 Normal 1.003-1.03 5 [facility] Comment on above: Performed By: #### N UM #### [facility] ([id number]) [address] [place] [address] UROBILINOGEN IDALMIS 2.0 eu/dL High <1.1 [facility] Comment on above: Performed By: #### N UM #### [facility] ([id number]) [address] [place] [address] XR ABDOMEN AP 1 VWon 024 XR ABDOMEN AP 1 VW XR ABDOMEN AP 1 VW HISTORY: Abdominal pain, nausea and vomiting COMPARISON: Abdominal x-rays 08/19/2020, CT abdomen and pelvis 08/20/2023 FINDINGS: AP supine views of the abdomen were obtained. Nonobstructive bowel gas pattern. Minimal stool burden. Vascular calcifications in the pelvis. No acute osseous abnormality. IMPRESSION: * Nonobstructive bowel gas pattern. Finalized by Gabriel Farris MD on 06/09/2024 8:03 PM Normal [facility] AFP MATERNAL FOR SPINA BIFID Aon 02-05-2023 AFP MoM 1.81 Normal [facility] Comment on above: Performed By: #### A FPMAT #### [facility] [address] [address] [address] Colette Worthington AFP Value 107.1 ng/mL Normal [facility] Comment on above: Performed By: #### A FPMAT #### [facility] [address] [address] [address] Colette Worthington AFP, Serum for Spina Bifida Report Normal [facility] Comment on above: Performed By: #### A FPMAT #### [facility] [address] [address] [address] Colette Worthington Comment Comment Normal [facility] Comment on above: Result Comment: Matilda Elise, Ph.D., [employer] Director . References: Available Upon Request. . Multiples Of Median Cutoffs For AFP Elevations Taylor 2.5 Black 2.8 IDD 2.0 Twins 4.5 Abbreviation Definitions IDD - Insulin Dep Diabetes OSBR - Open Spina Bifida Risk . For further inquiries contact [employer] [facility] at [phone]. . This test was developed and its performance characteristics determined by [facility]. It has not been cleared or approved by the Food and Drug Administration. Performed By: #### A FPMAT #### [facility] [address] [address] [address] Colette Zacarias Age Collection Date 21.9 weeks Normal [facility] Comment on above: Performed By: #### A FPMAT #### [facility] [id number] Colette Worthington Gestat, Age Based on As provided [facility] Comment on above: Result Comment: Reca lculations are not recommended when gestational dating by LMP and ultrasound are within 10 days. Performed By: #### A FPMAT #### [facility] [address] [place] [address] Dr. Colette Worthington Insulin Dep Diabetes No Normal [facility] Comment on above: Performed By: #### A FPMAT #### [facility] [address] [place] [address] Dr. Colette Worthington Interpretation Comment Normal [facility] Comment on above: Result Comment: Inte rpretation: Screen Negative . This result is screen negative for OSB. The AFP MoM calculated is based on the gestational age provided. MS-AFP can identify up to 80% of open neural tube defects. Closed neural tube defects and some open defects may not be detected by this test. This test does not screen for Down Syndrome or Trisomy 18. If screening for Down Syndrome or Trisomy 18 is desired, contact [employer] to discuss available options. The [place] [employer] recommends amniocentesis be offered to women age 35 and older. Performed By: #### A FPMAT #### [facility] [address] [place] [address] Dr. Colette Worthington [age] Normal [facility] Comment on above: Performed By: #### A FPMAT #### [facility] [address] [place] [address] Dr. Colette Worthington Multiple Gestation No Normal [facility] Comment on above: Performed By: #### A FPMAT #### [facility] [address] [place] [address] Dr. Colette Worthington OSBR Risk 1 [place] 1248 Normal [facility] Comment on above: Performed By: #### A FPMAT #### [facility] [address] [place] [address] Dr. Colette Worthington PDF . Normal [facility] Comment on above: Performed By: #### A FPMAT #### [facility] [address] [place] [address] Dr. Colette Worthington Race Normal [facility] Comment on above: Performed By: #### A FPMAT #### [facility] [address] [place] [address] Dr. Colette Worthington Test Results: Negative Normal [facility] Comment on above: Performed By: #### A FPMAT #### [facility] [address] [place], [place] [address] Dr. Colette Worthington Miscellaneouson 01-11-2023 Send Out Report FORWARD TO [facility] Comment on above: Performed By: #### C MIS #### [address] [address] Production Support Manager: Eric Rossi MD AFP, Maternalon 01-10-2023 Determined by Other [facility] Comment on above: Performed By: #### A AFPM #### [address] [address] Production Support Manager: Eric Rossi MD [address] [phone] Production Support Manager: Malcolm Orourke MD Due Date SEE NOTE [facility] Comment on above: Result Comment: Resu lts for Estimated Due Date: 06 03 23 Performed By: #### A AFPM #### [address] [address] Production Support Manager: Eric Rossi MD [address] [phone] Production Support Manager: Malcolm Orourke MD Family History No [facility] Comment on above: Performed By: #### A AFPM #### [address] [address] Production Support Manager: Eric Rossi MD [facility] [address] [place], [place] [phone] Production Support Manager: Malcolm Orourke MD Gestat Age (exact) 19 wks, 1 days [facility] Comment on above: Performed By: #### A AFPM #### [address] [address] Production Support Manager: Eric Rossi MD [facility] [address] [place], [place] [phone] Production Support Manager: Malcolm Orourke MD Ins Req Matern Diab Unknown [facility] Comment on above: Performed By: #### A AFPM #### [address] [address] Production Support Manager: Eric Rossi MD [address] [phone] Production Support Manager: Malcolm Orourke MD Interpretation Screen Neg Normal [facility] Comment on above: Result Comment: (NOT E) INTERPRETATION: SCREEN NEGATIVE for open spina bifida Neural Tube Defects (NTD) Negative Pre-Test Post-Test Cutoff Neural Tube Defects Risks 1:1030 1:4330 1:250 Comments: The risk of an open neural tube defect is less than the screening cut-off. This test was developed and its performance characteristics determined by [facility]. It has not been cleared or approved by the [place] Food and Drug Administration. This test was performed in a CLIA certified laboratory and is intended for clinical purposes. Performed By: #### A AFPM #### [address] [address] Production Support Manager: Eric Rossi MD [address] [address] Production Support Manager: Malcolm Orourke MD [age] [facility] Comment on above: Performed By: #### A AFPM #### [address] [address] Production Support Manager: Eric Rossi MD [address] [phone] Production Support Manager: Malcolm Orourke MD Maternal Race Nonblack [facility] Comment on above: Performed By: #### A AFPM #### [address] [address] Production Support Manager: Eric Rossi MD [facility] [employer] [address] [place] [phone] Production Support Manager: Malcolm Orourke MD Maternal Weight 218.0 lbs. Normal [facility] Comment on above: Performed By: #### A AFPM #### [address] [address] Production Support Manager: Eric Rossi MD [facility] [address] [place] [address] Production Support Manager: Malcolm Orourke MD MoM for AFP 1.36 [facility] Comment on above: Performed By: #### A AFPM #### [address] [address] Production Support Manager: Eric Rossi MD [address] [address] Production Support Manager: Malcolm Orourke MD Number of Fetuses [facility] Comment on above: Performed By: #### A AFPM #### [address] [address] Production Support Manager: Eric Rossi MD [address] [phone] Production Support Manager: Malcolm Orourke MD Patient's AFP 55 ng/mL [facility] Comment on above: Performed By: #### A AFPM #### [address] [address] Production Support Manager: Eric Rossi MD [facility] [address] [place] [address] Production Support Manager: Malcolm Orourke MD Smoking Unknown [facility] Comment on above: Performed By: #### A AFPM #### [address] [address] Production Support Manager: Erci Rossi MD [facility] [address] [place] [address] Production Support Manager: Malcolm Orourke MD Specimen See Note [facility] Comment on above: Result Comment: (NOT E) Initial sample Performed by [facility], [address] [place] [phone] [email or web address], Pepe Clayton MD, PHD, Lab. Director Performed By: #### A AFPM #### [address] [address] Production Support Manager: Eric Rossi MD [employer] [address] [place] [address] [phone] Production Support Manager: Malcolm Orourke MD CANNABINOID (THC) CONFIRMATI ON, URINEon 01-09-2023 Cannabinoid Positive Abnormal [facility] Comment on above: Performed By: #### D RUGRPD #### [facility] [address] [place] [address] Dr. Colette Worthington Carboxy THC GC/MS Conf >750 Normal Cutoff=10 [facility] Comment on above: Performed By: #### D RUGRPD #### [facility] [address] [place] [address] Dr. Colette Worthington AFP, Maternalon 01-08-2023 Current Smoking INFORMATION NOT PROVIDED [facility] Comment on above: Performed By: #### A AFPM #### [address] [address] Production Support Manager: Eric Rossi MD [employer] [address] [place] [address] Production Support Manager: Malcolm Orourke MD Dating LMP Normal [facility] Comment on above: Performed By: #### A AFPM #### [address] [address] Production Support Manager: Eric Rossi MD [facility] [employer] [address] [place] [address] Production Support Manager: Malcolm Orourke MD Diabetic INFORMATION NOT PROVIDED [facility] Comment on above: Performed By: #### A AFPM #### [address] [place] [address] Production Support Manager: Eric Rossi MD [facility] [address] [place] [address] Production Support Manager: Malcolm Orourke MD Donor Egg INFORMATION NOT PROVIDED [facility] Comment on above: Performed By: #### A AFPM #### [address] [address] Production Support Manager: Eric Rossi MD [facility] [address] [place] [address] Production Support Manager: Malcolm Orourke MD Estimated Due Date [id number] [facility] Comment on above: Performed By: #### A AFPM #### [address] [address] Production Support Manager: Eric Rossi MD [address] [address] Production Support Manager: Malcolm Orourke MD Family History Negative [facility] Comment on above: Performed By: #### A AFPM #### [address] [address] Production Support Manager: Eric Rossi MD [address] [address] Production Support Manager: Malcolm Orourke MD In Vitro Fertalizat INFORMATION NOT PROVIDED Normal [facility] Comment on above: Performed By: #### A AFPM #### [address] [address] Production Support Manager: Eric Rossi MD [facility] [address] [place] [address] Production Support Manager: Malcolm Orourke MD LMP date [id number] [facility] Comment on above: Performed By: #### A AFPM #### [address] [address] Production Support Manager: Eric Rossi MD [facility] [address] [place] [address] Production Support Manager: Malcolm Orourke MD Maternal date [id number] [facility] Comment on above: Performed By: #### A AFPM #### [address] [address] Production Support Manager: Eric Rossi MD [facility] [address] [place] [address] Production Support Manager: Malcolm Orourke MD Maternal Weight 218 [facility] Comment on above: Performed By: #### A AFPM #### [address] [address] Production Support Manager: Eric Rossi MD [address] [address] Production Support Manager: Malcolm Orourke MD Monochorionic Twins INFORMATION NOT PROVIDED [facility] Comment on above: Performed By: #### A AFPM #### [address] [address] Production Support Manager: Eric Rossi MD [facility] [address] [place] [address] Production Support Manager: Malcolm Orourke MD Patient Weight Units LB [facility] Comment on above: Performed By: #### A AFPM #### [address] [address] Production Support Manager: Eric Rossi MD [facility] [address] [place] [address] Production Support Manager: Malcolm Orourke MD Race (Maternal) WHITE [facility] Comment on above: Performed By: #### A AFPM #### [address] [address] Production Support Manager: Eric Rossi MD [facility] [address] [place] [address] Production Support Manager: Malcolm Orourke MD Repeat Specimen INFORMATION NOT PROVIDED Normal [facility] Comment on above: Performed By: #### A AFPM #### [facility] [address] [place] [address] Production Support Manager: Eric Rossi MD [facility] [address] [place] [address] Production Support Manager: Malcolm Orourke MD Valproic/Carbamaz ep INFORMATION NOT PROVIDED Normal [facility] Comment on above: Performed By: #### A AFPM #### [facility] [address] [place] [address] Production Support Manager: Eric Rossi MD [facility] [address] [place] [address] Production Support Manager: Malcolm Orourke MD C.trachomatis N.gonorrhoeae DNAon 01-08-2023 C. trachomatis DNA Probe+sig amp Ql (Unsp spec) Negative NEGATIVE [facility] Comment on above: CHLAMYDIA TRACHOMATI S DNA not detected by nucleic acid amplification. This test is intended for medical purposes only and is not valid for the evaluation of suspected sexual abuse or for other forensic purposes. In certain contexts, culture may be required to meet applicable laws and regulations for diagnosis of C. trachomatis and N. gonorrhoeae infections. Per 2014 CDC recommendations, this test does not include confirmation of positive results by an alternative nucleic acid target. N. gonorrhoeae DNA Probe+sig amp Ql (Unsp spec) Negative NEGATIVE [facility] Comment on above: NEISSERIA GONORRHOEA E DNA not detected by nucleic acid amplification. This test is intended for medical purposes only and is not valid for the evaluation of suspected sexual abuse or for other forensic purposes. In certain contexts, culture may be required to meet applicable laws and regulations for diagnosis of C. trachomatis and N. gonorrhoeae infections. Per 2014 CDC recommendations, this test does not include confirmation of positive results by an alternative nucleic acid target. Specimen Description .[facility] CBC with Auto Differentialon 01-08-2023 Absolute Eos # 0.18 [facility] Absolute Immature Granulocyte 0.06 [facility] Absolute Lymph # 2.15 [facility] Absolute [place] # 0.97 [facility] Basophils (Bld) [#/Vol] 0.03 10*3/uL [facility] Basophils/100 WBC (Bld) 0 % 0 - 2 % [facility] Eosinophils/100 WBC (Bld) 2 % 1 - 4 % [facility] Hematocrit (Bld) [Volume fraction] 31.0 % Low 36.3 - 47.1 % [facility] Hemoglobin (Bld) [Mass/Vol] 10.4 g/dL Low 11.9 - 15.1 g/dL [facility] Immature granulocytes/100 WBC (Bld) 1 % High 0 [facility] Interpretation and review of laboratory results Abnormal [facility] Lymphocytes/100 WBC (Bld) 19 % Low 24 - 43 % [facility] MCH (RBC) [Entitic mass] 30.0 pg 25.2 - 33.5 pg [facility] MCHC (RBC) [Mass/Vol] 33.5 g/dL 28.4 - 34.8 g/dL [facility] MCV (RBC) [Entitic vol] 89.3 fL 82.6 - 102.9 fL [facility] Monocytes/100 WBC (Bld) 9 % 3 - 12 % [facility] NRBC Automated 0.0 0.0 per 100 WBC [facility] Platelet distribution width (Bld) [Ratio] 12.8 % 11.8 - 14.4 % [facility] Platelet mean volume (Bld) [Entitic vol] 11.0 fL 8.1 - 13.5 fL [facility] Platelets (Bld) [#/Vol] 254 10*3/uL [facility] RBC (Bld) [#/Vol] 3.47 10*6/uL Low 3.95 - 5.11 m/uL [facility] Segmented neutrophils/100 WBC (Bld) 69 % High 36 - 65 % [facility] Segs Absolute 7.87 [facility] WBC (Bld) [#/Vol] 11.3 10*3/uL [facility] CBC with Diffon 01-08-2023 Abs. Basophil 0.03 k/uL Normal 0.00-0.20 [facility] Comment on above: Performed By: #### C DP, CP, MG #### [facility] [employer] [address] [place] [phone] Production Support Manager: Eric Rossi MD Abs.Imm.Granulocy te 0.06 k/uL Normal 0.00-0.30 [facility] Comment on above: Performed By: #### C DP, CP, MG #### [facility] [employer] [address] [place] [phone] Production Support Manager: Eric Rossi MD Abs.Neutrophil (Seg) 7.87 k/uL Normal 1.50-8.10 [facility] Comment on above: Performed By: #### C DP, CP, MG #### [facility] [employer] [address] [place] [phone] Production Support Manager: Eric Rossi MD Basophils/100 WBC (Bld) 0 % Normal 0-2 [facility] Comment on above: Performed By: #### C DP, CP, MG #### [facility] [employer] [address] [place] [phone] Production Support Manager: Eric Rossi MD Eosinophils (Bld) [#/Vol] 0.18 10*3/uL Normal 0.00-0.44 [facility] Comment on above: Performed By: #### C DP, CP, MG #### [facility] [employer] [address] [place] [phone] Production Support Manager: Eric Rossi MD Eosinophils/100 WBC (Bld) 2 % Normal 1-4 [facility] Comment on above: Performed By: #### C DP, CP, MG #### [facility] [address] [place] [phone] Production Support Manager: Eric Rossi MD Erythrocyte distribution width (RBC) [Ratio] 12.8 % Normal 11.8-14.4 [facility] Comment on above: Performed By: #### C DP, CP, MG #### [facility] [employer] [address] [place] [phone] Production Support Manager: Eric Rossi MD Hematocrit (Bld) [Volume fraction] 31.0 % Low 36.3-47.1 [facility] Comment on above: Performed By: #### C DP, CP, MG #### [facility] [employer] [address] [place] [phone] Production Support Manager: Eric Rossi MD Hemoglobin (Bld) [Mass/Vol] 10.4 g/dL Low 11.9-15.1 [facility] Comment on above: Performed By: #### C DP, CP, MG #### [facility] [employer] [address] [place] [phone] Production Support Manager: Eric Rossi MD Immature granulocytes/100 WBC (Bld) 1 % High 0 [facility] Comment on above: Performed By: #### C DP, CP, MG #### [facility] [employer] [address] [place] [phone] Production Support Manager: Eric Rossi MD Lymphocytes (Bld) [#/Vol] 2.15 10*3/uL Normal 1.10-3.70 [facility] Comment on above: Performed By: #### C DP, CP, MG #### [facility] [employer] [address] [place] [phone] Production Support Manager: Eric Rossi MD Lymphocytes/100 WBC (Bld) 19 % Low 24-43 [facility] Comment on above: Performed By: #### C DP, CP, MG #### [facility] [employer] [address] [place] [phone] Production Support Manager: Eric Rossi MD MCH (RBC) [Entitic mass] 30.0 pg Normal 25.2-33.5 [facility] Comment on above: Performed By: #### C DP, CP, MG #### [address] [address] Production Support Manager: Eric Rossi MD MCHC (RBC) [Mass/Vol] 33.5 g/dL Normal 28.4-34.8 [facility] Comment on above: Performed By: #### C DP, CP, MG #### [address] [address] Production Support Manager: Eric Rossi MD MCV (RBC) [Entitic vol] 89.3 fL Normal 82.6-102.9 [facility] Comment on above: Performed By: #### C DP, CP, MG #### [address] [address] Production Support Manager: Eric Rossi MD Monocytes (Bld) [#/Vol] 0.97 10*3/uL Normal 0.10-1.20 [facility] Comment on above: Performed By: #### C DP, CP, MG #### [address] [address] Production Support Manager: Eric Rossi MD Monocytes/100 WBC (Bld) 9 % Normal 3-12 [facility] Comment on above: Performed By: #### C DP, CP, MG #### [address] [address] Production Support Manager: Eric Rossi MD Neutrophil (Seg) 69 % High 36-65 [facility] Comment on above: Performed By: #### C DP, CP, MG #### [address] [address] Production Support Manager: Eric Rossi MD NRBC Automated 0.0 per 100 WBC Normal 0.0 [facility] Comment on above: Performed By: #### C DP, CP, MG #### [address] [address] Production Support Manager: Eric Rossi MD Platelet mean volume (Bld) [Entitic vol] 11.0 fL Normal 8.1-13.5 [facility] Comment on above: Performed By: #### C DP, CP, MG #### [address] [address] Production Support Manager: Eric Rossi MD Platelets (Bld) [#/Vol] 254 10*3/uL Normal 138-453 [facility] Comment on above: Performed By: #### C DP, CP, MG #### [address] [address] Production Support Manager: Eric Rossi MD RBC (Bld) [#/Vol] 3.47 10*6/uL Low 3.95-5.11 [facility] Comment on above: Performed By: #### C DP, CP, MG #### [address] [address] Production Support Manager: Eric Rossi MD WBC (Bld) [#/Vol] 11.3 10*3/uL Normal 3.5-11.3 [facility] Comment on above: Performed By: #### C DP, CP, MG #### [address] [address] Production Support Manager: Eric Rossi MD Chlamydia/GC,DNA Ampon 01-08 Chlamydia Probe Negative Normal NEG [facility] Comment on above: Result Comment: CHLA MYDIA TRACHOMATIS DNA not detected by nucleic acid amplification. This test is intended for medical purposes only and is not valid for the evaluation of suspected sexual abuse or for other forensic purposes. In certain contexts, culture may be required to meet applicable laws and regulations for diagnosis of C. trachomatis and N. gonorrhoeae infections. Per 2014 CDC recommendations, this test does not include confirmation of positive results by an alternative nucleic acid target. Performed By: #### S WCGP #### [address] [address] Production Support Manager: Eric Rossi MD Gonorrhea Probe Negative Normal NEG [facility] Comment on above: Result Comment: NEIS SERIA GONORRHOEAE DNA not detected by nucleic acid amplification. This test is intended for medical purposes only and is not valid for the evaluation of suspected sexual abuse or for other forensic purposes. In certain contexts, culture may be required to meet applicable laws and regulations for diagnosis of C. trachomatis and N. gonorrhoeae infections. Per 2014 CDC recommendations, this test does not include confirmation of positive results by an alternative nucleic acid target. Performed By: #### S WCGP #### [place] [address] Production Support Manager: Eric Rossi MD Comp Metabolic Profon 2022 Albumin [Mass/Vol] 2.6 g/dL Low 3.5-5.2 [facility] Comment on above: Performed By: #### C DP, CP, MG #### [address] [address] Production Support Manager: Eric Rossi MD Albumin/Glob Ratio 0.9 Low 1.0-2.5 [facility] Comment on above: Performed By: #### C DP, CP, MG #### [facility] [employer] [address] [place] [phone] Production Support Manager: Eric Rossi MD Alkaline Phos 72 U/L Normal 35-104 [facility] Comment on above: Performed By: #### C DP, CP, MG #### [facility] [employer] [address] [place] [phone] Production Support Manager: Eric Rossi MD ALT [Catalytic activity/Vol] 11 U/L Normal 5-33 [facility] Comment on above: Performed By: #### C DP, CP, MG #### [facility] [employer] [facility] [place] [address] Production Support Manager: Eric Rossi MD Anion gap [Moles/Vol] 10 mmol/L Normal 9-17 [facility] Comment on above: Performed By: #### C DP, CP, MG #### [facility] [address] [place] [phone] Production Support Manager: Eric Rossi MD AST [Catalytic activity/Vol] 10 U/L Normal <32 [facility] Comment on above: Performed By: #### C DP, CP, MG #### [facility] [employer] [address] [place] [phone] Production Support Manager: Eric Rossi MD Bilirubin [Mass/Vol] 0.2 mg/dL Low 0.3-1.2 [facility] Comment on above: Performed By: #### C DP, CP, MG #### [facility] [employer] [address] [place] [phone] Production Support Manager: Eric Rossi MD Calcium [Mass/Vol] 8.1 mg/dL Low 8.6-10.4 [facility] Comment on above: Performed By: #### C DP, CP, MG #### [facility] [employer] [address] [place] [phone] Production Support Manager: Eric Rossi MD Chloride [Moles/Vol] 108 mmol/L High 98-107 [facility] Comment on above: Performed By: #### C DP, CP, MG #### [facility] [address] [place] [address] Production Support Manager: Eric Rossi MD CO2 [Moles/Vol] 19 mmol/L Low 20-31 [facility] Comment on above: Performed By: #### C DP, CP, MG #### [facility] [address] [place] [address] Production Support Manager: Eric Rossi MD Creatinine [Mass/Vol] 0.40 mg/dL Low 0.50-0.90 [facility] Comment on above: Performed By: #### C DP, CP, MG #### [address] [address] Production Support Manager: Eric Rossi MD GFR/1.73 sq M.predicted among non-blacks MDRD (S/P/Bld) [Vol rate/Area] mL/min/{1.73_m2} Normal >60 [facility] Comment on above: Result Comment: These results are not intended for use in patients <18 years of age. eGFR results are calculated without a race factor using the 2020 CKD-EPI equation. Careful clinical correlation is recommended, particularly when comparing to results calculated using previous equations. The CKD-EPI equation is less accurate in patients with extremes of muscle mass, extra-renal metabolism of creatine, excessive creatine ingestion, or following therapy that affects renal tubular secretion. Performed By: #### C DP, CP, MG #### [address] [address] Production Support Manager: Eric Rossi MD Glucose [Mass/Vol] 83 mg/dL Normal 70-99 [facility] Comment on above: Performed By: #### C DP, CP, MG #### [facility] [employer] [address] [place] [phone] Production Support Manager: Eric Rossi MD Potassium [Moles/Vol] 3.4 mmol/L Low 3.7-5.3 [facility] Comment on above: Performed By: #### C DP, CP, MG #### [facility] [address] [place] [address] Production Support Manager: Eric Rossi MD Protein [Mass/Vol] 5.6 g/dL Low 6.4-8.3 [facility] Comment on above: Performed By: #### C DP, CP, MG #### [facility] [employer] [address] [place] [phone] Production Support Manager: Eric Rossi MD Sodium [Moles/Vol] 137 mmol/L Normal 135-144 [facility] Comment on above: Performed By: #### C DP, CP, MG #### [facility] [address] [place], [place] [phone] Production Support Manager: Eric Rossi MD Urea nitrogen [Mass/Vol] 2 mg/dL Low 6-20 [facility] Comment on above: Performed By: #### C DP, CP, MG #### [facility] [address] [place] [address] Production Support Manager: Eric Rossi MD Comprehensive Metabolic Pane [facility] 01-08-2023 Albumin [Mass/Vol] 2.6 g/dL Low 3.5 - 5.2 g/dL [facility] Albumin/Globulin [Mass ratio] 0.9 {ratio} Low 1.0 - 2.5 [facility] ALP [Catalytic activity/Vol] 72 U/L 35 - 104 U/L [facility] ALT [Catalytic activity/Vol] 11 U/L 5 - 33 U/L [facility] Anion gap [Moles/Vol] 10 mmol/L 9 - 17 mmol/L [facility] AST [Catalytic activity/Vol] 10 U/L NINF - 32 U/L [facility] Bilirubin [Mass/Vol] 0.2 mg/dL Low 0.3 - 1.2 mg/dL [facility] Calcium [Mass/Vol] 8.1 mg/dL Low 8.6 - 10.4 mg/dL [facility] Chloride [Moles/Vol] 108 mmol/L High 98 - 107 mmol/L [facility] CO2 [Moles/Vol] 19 mmol/L Low 20 - 31 mmol/L [facility] Creatinine [Mass/Vol] 0.4 mg/dL Low 0.50 - 0.90 mg/dL [facility] GFR/1.73 sq M.predicted MDRD (S/P/Bld) [Vol rate/Area] - PINF [facility] Comment on above: These results are not intended for use in patients <18 years of age. eGFR results are calculated without a race factor using the 2020 CKD-EPI equation. Careful clinical correlation is recommended, particularly when comparing to results calculated using previous equations. The CKD-EPI equation is less accurate in patients with extremes of muscle mass, extra-renal metabolism of creatine, excessive creatine ingestion, or following therapy that affects renal tubular secretion. Glucose [Mass/Vol] 83 mg/dL 70 - 99 mg/dL [facility] Interpretation and review of laboratory results Abnormal [facility] Potassium [Moles/Vol] 3.4 mmol/L Low 3.7 - 5.3 mmol/L [facility] Protein [Mass/Vol] 5.6 g/dL Low 6.4 - 8.3 g/dL [facility] Sodium [Moles/Vol] 137 mmol/L 135 - 144 mmol/L [facility] Urea nitrogen [Mass/Vol] 2 mg/dL Low 6 - 20 mg/dL [facility] Cult,Urineon 01-08-2023 Cult,Urine Specimen Description .CLEAN CATCH URINE Culture NO SIGNIFICANT GROWTH Report Status FINAL 01/08/2023 [facility] Comment on above: Performed By: #### U RC #### [employer] [facility] [address] [place] [phone] Production Support Manager: Eric Rossi MD Culture, Urineon 01-08-2023 Microorganism identified Cx Nom (Unsp spec) NO SIGNIFICANT GROWTH [facility] Specimen Description .CLEAN CATCH URINE [facility] Magnesiumon 01-08-2023 Magnesium [Mass/Vol] 2.0 mg/dL Normal 1.6-2.6 [facility] Comment on above: Performed By: #### C DP, CP, MG #### [employer] [facility] [address] [place] [phone] Production Support Manager: Eric Rossi MD Magnesium [Mass/Vol] 2.0 mg/dL 1.6 - 2.6 mg/dL [facility] Miscellaneouson 04-14-2023 Test Name [facility] Normal [facility] Comment on above: Performed By: #### C MIS #### [id number] [place] [address] Production Support Manager: Eric Rossi MD CBC AUTO DIFFon 01-07-2023 BASO # 0.0 103/ul Normal 0.0-0.1 [facility] Comment on above: Performed By: #### C BC #### [facility] [address] [address] [address] Colette Worthington Basophils/100 WBC (Bld) 0.2 % Normal 0.2-2.0 [facility] Comment on above: Performed By: #### C BC #### [facility] [address] [place] [address] Dr. Colette Worthington EO # 0.1 103/ul Normal 0.0-0.7 [facility] Comment on above: Performed By: #### C BC #### [facility] [address] [address] [address] Colette Worthington Eosinophils/100 WBC (Bld) 1.0 % Normal 0.9-7.0 [facility] Comment on above: Performed By: #### C BC #### [facility] [address] [place] [address] Dr. Colette Worthington Erythrocyte distribution width (RBC) [Ratio] 12.6 % Normal 11.0-15.0 [facility] Comment on above: Performed By: #### C BC #### [facility] [address] [place] [address] Dr. Colette Worthington Hematocrit (Bld) [Volume fraction] 31.5 % Critically low 36.0-48.0 [facility] Comment on above: Performed By: #### C BC #### [facility] [address] [place] [address] Dr. Colette Worthington Hemoglobin (Bld) [Mass/Vol] 10.5 g/dL Critically low 12.0-16.0 [facility] Comment on above: Performed By: #### C BC #### [facility] [address] [place] [address] Dr. Colette Worthington IG # 0.03 10e3/ul Normal 0.00-0.03 [facility] Comment on above: Performed By: #### C BC #### [facility] [address] [place] [address] Dr. Colette Worthington IG % 0.2 % Normal 0.0-0.5 [facility] Comment on above: Performed By: #### C BC #### [facility] [address] [place] [address] Dr. Colette Worthington LYMPH # 1.9 103/ul Normal 1.2-3.8 [facility] Comment on above: Performed By: #### C BC #### [facility] [address] [place] [address] Dr. Colette Worthington Lymphocytes/100 WBC (Bld) 14.2 % Critically low 20.5-60.0 [facility] Comment on above: Performed By: #### C BC #### [facility] [address] [place] [address] Dr. Colette Worthington MANUAL DIFF REQ NO Normal [facility] Comment on above: Performed By: #### C BC #### [facility] [address] [place] [address] Dr. Colette Worthington MCH (RBC) [Entitic mass] 29.5 pg Normal 26.7-34.0 [facility] Comment on above: Performed By: #### C BC #### [facility] [address] [place] [address] Dr. Colette Worthington MCHC (RBC) [Mass/Vol] 33.3 g/dL Normal 29.9-35.2 [facility] Comment on above: Performed By: #### C BC #### [facility] [address] [place] [address] Dr. Colette Worthington MCV (RBC) [Entitic vol] 88.5 fL Normal 81.0-99.0 [facility] Comment on above: Performed By: #### C BC #### [facility] [address] [place] [address] Dr. Colette Worthington MONO # 1.2 103/ul Critically high 0.3-0.8 [facility] Comment on above: Performed By: #### C BC #### [facility] [address] [place] [address] Dr. Colette Worthington Monocytes/100 WBC (Bld) 9.0 % Normal 1.7-12.0 [facility] Comment on above: Performed By: #### C BC #### [facility] [address] [place] [address] Dr. Colette Worthington NEUT # 10.0 103/ul Critically high 1.4-6.5 [facility] Comment on above: Performed By: #### C BC #### [facility] [address] [place] [address] Dr. Colette Worthington Neutrophils/100 WBC (Bld) 75.4 % Critically high 43.0-75.0 [facility] Comment on above: Performed By: #### C BC #### [facility] [address] [place] [address] Dr. Colette Worthington Platelet mean volume (Bld) [Entitic vol] 10.3 fL Normal 9.5-13.5 [facility] Comment on above: Performed By: #### C BC #### [facility] [address] [place] [address] Dr. Colette Worthington PLT 232 103/ul Normal 150-450 [facility] Comment on above: Performed By: #### C BC #### [facility] [address] [place] [address] Dr. Colette Worthington RBC 3.56 106/ul Critically low 4.20-5.40 [facility] Comment on above: Performed By: #### C BC #### [facility] [address] [place] [address] Dr. Colette Worthington WBC 13.3 103/ul Critically high 4.0-11.0 [facility] Comment on above: Performed By: #### C BC #### [facility] [address] [place] [address] Dr. Colette Worthington CBC with Auto Differentialon 01-07-2023 Absolute Eos # 0.05 [facility] Absolute Immature Granulocyte 0.07 [facility] Absolute Lymph # 1.92 [facility] Absolute [place] # 0.94 [facility] Basophils (Bld) [#/Vol] 0.04 10*3/uL [facility] Basophils/100 WBC (Bld) 0 % 0 - 2 % [facility] Eosinophils/100 WBC (Bld) 0 % Low 1 - 4 % [facility] Hematocrit (Bld) [Volume fraction] 39.6 % 36.3 - 47.1 % [facility] Hemoglobin (Bld) [Mass/Vol] 12.4 g/dL 11.9 - 15.1 g/dL [facility] Immature granulocytes/100 WBC (Bld) 0 % 0 [facility] Interpretation and review of laboratory results Abnormal [facility] Lymphocytes/100 WBC (Bld) 11 % Low 24 - 43 % [facility] MCH (RBC) [Entitic mass] 29.5 pg 25.2 - 33.5 pg [facility] MCHC (RBC) [Mass/Vol] 31.3 g/dL 28.4 - 34.8 g/dL [facility] MCV (RBC) [Entitic vol] 94.3 fL 82.6 - 102.9 fL [facility] Monocytes/100 WBC (Bld) 6 % 3 - 12 % [facility] NRBC Automated 0.0 0.0 per 100 WBC [facility] Platelet distribution width (Bld) [Ratio] 12.6 % 11.8 - 14.4 % [facility] Platelet mean volume (Bld) [Entitic vol] 10.7 fL 8.1 - 13.5 fL [facility] Platelets (Bld) [#/Vol] 295 10*3/uL [facility] RBC (Bld) [#/Vol] 4.20 10*6/uL 3.95 - 5.11 m/uL [facility] Segmented neutrophils/100 WBC (Bld) 83 % High 36 - 65 % [facility] Segs Absolute 13.80 High [facility] WBC (Bld) [#/Vol] 16.8 10*3/uL High [facility] CBC with Diffon 01-07-2023 Abs. Basophil 0.04 k/uL Normal 0.00-0.20 [facility] Comment on above: Performed By: #### C DP, LIP, CP #### [address] [address] Production Support Manager: Eric Rossi MD Abs.Imm.Granulocy te 0.07 k/uL Normal 0.00-0.30 [facility] Comment on above: Performed By: #### C DP, LIP, CP #### [facility] [employer] [address] [place] [phone] Production Support Manager: Eric Rossi MD Abs.Neutrophil (Seg) 13.80 k/uL High 1.50-8.10 [facility] Comment on above: Performed By: #### C DP, LIP, CP #### [facility] [employer] [address] [place] [phone] Production Support Manager: Eric Rossi MD Basophils/100 WBC (Bld) 0 % Normal 0-2 [facility] Comment on above: Performed By: #### C DP, LIP, CP #### [facility] [address] [place] [address] Production Support Manager: Eric Rossi MD Eosinophils (Bld) [#/Vol] 0.05 10*3/uL Normal 0.00-0.44 [facility] Comment on above: Performed By: #### C DP, LIP, CP #### [facility] [address] [place] [phone] Production Support Manager: Eric Rossi MD Eosinophils/100 WBC (Bld) 0 % Low 1-4 [facility] Comment on above: Performed By: #### C DP, LIP, CP #### [facility] [address] [place] [phone] Production Support Manager: Eric Rossi MD Erythrocyte distribution width (RBC) [Ratio] 12.6 % Normal 11.8-14.4 [facility] Comment on above: Performed By: #### C DP, LIP, CP #### [address] [address] Production Support Manager: Eric Rossi MD Hematocrit (Bld) [Volume fraction] 39.6 % Normal 36.3-47.1 [facility] Comment on above: Performed By: #### C DP, LIP, CP #### [address] [address] Production Support Manager: Eric Rossi MD Hemoglobin (Bld) [Mass/Vol] 12.4 g/dL Normal 11.9-15.1 [facility] Comment on above: Performed By: #### C DP, LIP, CP #### [address] [address] Production Support Manager: Eric Rossi MD Immature granulocytes/100 WBC (Bld) 0 % Normal 0 [facility] Comment on above: Performed By: #### C DP, LIP, CP #### [address] [address] Production Support Manager: Eric Rossi MD Lymphocytes (Bld) [#/Vol] 1.92 10*3/uL Normal 1.10-3.70 [facility] Comment on above: Performed By: #### C DP, LIP, CP #### [address] [address] Production Support Manager: Eric Rossi MD Lymphocytes/100 WBC (Bld) 11 % Low 24-43 [facility] Comment on above: Performed By: #### C DP, LIP, CP #### [address] [address] Production Support Manager: Eric Rossi MD MCH (RBC) [Entitic mass] 29.5 pg Normal 25.2-33.5 [facility] Comment on above: Performed By: #### C DP, LIP, CP #### [address] [address] Production Support Manager: Eric Rossi MD MCHC (RBC) [Mass/Vol] 31.3 g/dL Normal 28.4-34.8 [facility] Comment on above: Performed By: #### C DP, LIP, CP #### [address] [address] Production Support Manager: Eric Rossi MD MCV (RBC) [Entitic vol] 94.3 fL Normal 82.6-102.9 [facility] Comment on above: Performed By: #### C DP, LIP, CP #### [address] [address] Production Support Manager: Eric Rossi MD Monocytes (Bld) [#/Vol] 0.94 10*3/uL Normal 0.10-1.20 [facility] Comment on above: Performed By: #### C DP, LIP, CP #### [address] [address] Production Support Manager: Eric Rossi MD Monocytes/100 WBC (Bld) 6 % Normal 3-12 [facility] Comment on above: Performed By: #### C DP, LIP, CP #### [address] [address] Production Support Manager: Eric Rossi MD Neutrophil (Seg) 83 % High 36-65 [facility] Comment on above: Performed By: #### C DP, LIP, CP #### [address] [address] Production Support Manager: Eric Rossi MD NRBC Automated 0.0 per 100 WBC Normal 0.0 [facility] Comment on above: Performed By: #### C DP, LIP, CP #### [facility] [address] [place] [phone] Production Support Manager: Eric Rossi MD Platelet mean volume (Bld) [Entitic vol] 10.7 fL Normal 8.1-13.5 [facility] Comment on above: Performed By: #### C DP, LIP, CP #### [facility] [address] [place] [phone] Production Support Manager: Eric Rossi MD Platelets (Bld) [#/Vol] 295 10*3/uL Normal 138-453 [facility] Comment on above: Performed By: #### C DP, LIP, CP #### [facility] [address] [place] [phone] Production Support Manager: Eric Rossi MD RBC (Bld) [#/Vol] 4.20 10*6/uL Normal 3.95-5.11 [facility] Comment on above: Performed By: #### C DP, LIP, CP #### [address] [address] Production Support Manager: Eric Rossi MD WBC (Bld) [#/Vol] 16.8 10*3/uL High 3.5-11.3 [facility] Comment on above: Performed By: #### C DP, LIP, CP #### [facility] [address] [place] [phone] Production Support Manager: Eric Rossi MD CT ABDOMEN PELVIS W IV CONTR Mary 01-07-2023 CT ABDOMEN PELVIS W IV CONTRAST ADDENDUM: 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 Therefore another differential possibility for cystic lesion of the uterus includes atretic fluid filled part of the uterine anomaly. Electronically Signed by: SARAH HODGES on WedJan 07, 2023 5:30:31 PM EDT EXAMINATION: CT OF THE ABDOMEN AND PELVIS WITH CONTRAST 01/07/2023 2:35 pm TECHNIQUE: CT of the abdomen and pelvis was performed with the administration of intravenous contrast. Multiplanar reformatted images are provided for review. Automated exposure control, iterative reconstruction, and/or weight based adjustment of the mA/kV was utilized to reduce the radiation dose to as low as reasonably achievable. COMPARISON: None. HISTORY: ORDERING SYSTEM PROVIDED HISTORY: abdominal pain, epigastric tenderness, rebound tenderness, r/o appendicitis, hepatobiliary health professional PROVIDED HISTORY: abdominal pain, epigastric tenderness, rebound tenderness, r/o appendicitis, hepatobiliary pathology Reason for Exam: r/o appendicitis,hepatobiliary pathology FINDINGS: LOWER CHEST: Visualized portion of the lower chest demonstrates no acute abnormality. KIDNEYS AND URINARY TRACT: No renal calculi are identified. There is no evidence for hydronephrosis. 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 ORGANS: Visualized portions of the liver, spleen, pancreas, gallbladder, and adrenal glands demonstrate no acute abnormality. GI/BOWEL: No bowel obstruction. No evidence of acute appendicitis. PELVIS: Gravid uterus. There is 7 x 8 cm cystic lesion arising from the left superior fundal segment of the uterus near the placental insertion site. Differential possibilities for this lesion includes necrotic fibroid and possible hematoma cavity near the placental insertion site. PERITONEUM/RETROPERITONEUM: No free air or free fluid is noted. No pathologically enlarged lymphadenopathy. The vasculature do not demonstrate acute abnormality. BONES/SOFT TISSUES: The osseous structures demonstrate no acute abnormality. IMPRESSION: Appendix is normal. No obstructive uropathy. 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 There is 7 x 8 cm cystic lesion arising from the left superior fundal segment of the uterus near the placental insertion site. Differential possibilities for this lesion includes necrotic fibroid and possible hematoma cavity near the placental insertion site. For further evaluation dedicated ultrasound examination can be obtained. Interpreted by: Sarah Hodges MD Signed by: Sarah Hodges MD 01/07/23 Edited Result - FINAL Normal [facility] CT ABDOMEN PELVIS W IV CONTR AST Additional Contrast? 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 Therefore another differential possibility for cystic lesion of the uterus includes atretic fluid filled part of the uterine anomaly. [employer] Work Phone: Appendix is normal. No obstructive uropathy. 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 There is 7 x 8 cm cystic lesion arising from the left superior fundal segment of the uterus near the placental insertion site. Differential possibilities for this lesion includes necrotic fibroid and possible hematoma cavity near the placental insertion site. For further evaluation dedicated ultrasound examination can be obtained. [facility] EXAMINATION: CT OF THE ABDOMEN AND PELVIS WITH CONTRAST 01/07/2023 2:35 pm TECHNIQUE: CT of the abdomen and pelvis was performed with the administration of intravenous contrast. Multiplanar reformatted images are provided for review. Automated exposure control, iterative reconstruction, and/or weight based adjustment of the mA/kV was utilized to reduce the radiation dose to as low as reasonably achievable. COMPARISON: None. HISTORY: ORDERING SYSTEM PROVIDED HISTORY: abdominal pain, epigastric tenderness, rebound tenderness, r/o appendicitis, hepatobiliary health professional PROVIDED HISTORY: abdominal pain, epigastric tenderness, rebound tenderness, r/o appendicitis, hepatobiliary pathology Reason for Exam: r/o appendicitis,hepatobiliary pathology FINDINGS: LOWER CHEST: Visualized portion of the lower chest demonstrates no acute abnormality. KIDNEYS AND URINARY TRACT: No renal calculi are identified. There is no evidence for hydronephrosis. 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 ORGANS: Visualized portions of the liver, spleen, pancreas, gallbladder, and adrenal glands demonstrate no acute abnormality. GI/BOWEL: No bowel obstruction. No evidence of acute appendicitis. PELVIS: Gravid uterus. There is 7 x 8 cm cystic lesion arising from the left superior fundal segment of the uterus near the placental insertion site. Differential possibilities for this lesion includes necrotic fibroid and possible hematoma cavity near the placental insertion site. PERITONEUM/RETROPERITONEUM: No free air or free fluid is noted. No pathologically enlarged lymphadenopathy. The vasculature do not demonstrate acute abnormality. BONES/SOFT TISSUES: The osseous structures demonstrate no acute abnormality. [facility] Sarah Hodges MD - 01/07/2023 EXAMINATION: CT OF THE ABDOMEN AND PELVIS WITH CONTRAST 01/07/2023 2:35 pm TECHNIQUE: CT of the abdomen and pelvis was performed with the administration of intravenous contrast. Multiplanar reformatted images are provided for review. Automated exposure control, iterative reconstruction, and/or weight based adjustment of the mA/kV was utilized to reduce the radiation dose to as low as reasonably achievable. COMPARISON: None. HISTORY: ORDERING SYSTEM PROVIDED HISTORY: abdominal pain, epigastric tenderness, rebound tenderness, r/o appendicitis, hepatobiliary health professional PROVIDED HISTORY: abdominal pain, epigastric tenderness, rebound tenderness, r/o appendicitis, hepatobiliary pathology Reason for Exam: r/o appendicitis,hepatobiliary pathology FINDINGS: LOWER CHEST: Visualized portion of the lower chest demonstrates no acute abnormality. KIDNEYS AND URINARY TRACT: No renal calculi are identified. There is no evidence for hydronephrosis. 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 ORGANS: Visualized portions of the liver, spleen, pancreas, gallbladder, and adrenal glands demonstrate no acute abnormality. GI/BOWEL: No bowel obstruction. No evidence of acute appendicitis. PELVIS: Gravid uterus. There is 7 x 8 cm cystic lesion arising from the left superior fundal segment of the uterus near the placental insertion site. Differential possibilities for this lesion includes necrotic fibroid and possible hematoma cavity near the placental insertion site. PERITONEUM/RETROPERITONEUM: No free air or free fluid is noted. No pathologically enlarged lymphadenopathy. The vasculature do not demonstrate acute abnormality. BONES/SOFT TISSUES: The osseous structures demonstrate no acute abnormality. IMPRESSION: Appendix is normal. No obstructive uropathy. 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 There is 7 x 8 cm cystic lesion arising from the left superior fundal segment of the uterus near the placental insertion site. Differential possibilities for this lesion includes necrotic fibroid and possible hematoma cavity near the placental insertion site. For further evaluation dedicated ultrasound examination can be obtained. [employer] Phone: Radiology Study observation (narrative) [employer] Phone: CT ABDOMEN PELVIS W IV CONTR AST Additional Contrast? NoneOrdered By: Sarah Hodges on 01-07-2023 [employer] Phone: Comp Metabolic Profon 2022 Albumin [Mass/Vol] 3.1 g/dL Low 3.5-5.2 [facility] Comment on above: Performed By: #### C DP, LIP, CP #### [address] [address] Production Support Manager: Eric Rossi MD Albumin/Glob Ratio 0.8 Low 1.0-2.5 [facility] Comment on above: Performed By: #### C DP, LIP, CP #### [facility] [employer] [address] [place] [phone] Production Support Manager: Eric Rossi MD Alkaline Phos 90 U/L Normal 35-104 [facility] Comment on above: Performed By: #### C DP LIP, CP #### [address] [address] Production Support Manager: Eric Rossi MD ALT [Catalytic activity/Vol] 15 U/L Normal 5-33 [facility] Comment on above: Performed By: #### C DP LIP, CP #### [address] [address] Production Support Manager: Eric Rossi MD Anion gap [Moles/Vol] 11 mmol/L Normal 9-17 [facility] Comment on above: Performed By: #### C DP LIP, CP #### [address] [address] Production Support Manager: Eric Rossi MD AST [Catalytic activity/Vol] 17 U/L Normal <32 [facility] Comment on above: Performed By: #### C DP, LIP, CP #### [address] [address] Production Support Manager: Eric Rossi MD Bilirubin [Mass/Vol] 0.3 mg/dL Normal 0.3-1.2 [facility] Comment on above: Performed By: #### C DP, LIP, CP #### [facility] [employer] [address] [place] [address] Production Support Manager: Eric Rossi MD Calcium [Mass/Vol] 8.5 mg/dL Low 8.6-10.4 [facility] Comment on above: Performed By: #### C DP LIP, CP #### [address] [address] Production Support Manager: Eric Rossi MD Chloride [Moles/Vol] 107 mmol/L Normal 98-107 [facility] Comment on above: Performed By: #### C PERNELL LIP, CP #### [facility] [employer] [address] [place] [address] Production Support Manager: Eric Rossi MD CO2 [Moles/Vol] 16 mmol/L Low 20-31 [facility] Comment on above: Performed By: #### C PERNELL LIP, CP #### [facility] [employer] [address] [place] [address] Production Support Manager: Eric Rossi MD Creatinine [Mass/Vol] 0.45 mg/dL Low 0.50-0.90 [facility] Comment on above: Performed By: #### C DP LIP, CP #### [address] [address] Production Support Manager: Eric Rossi MD GFR/1.73 sq M.predicted among non-blacks MDRD (S/P/Bld) [Vol rate/Area] mL/min/{1.73_m2} Normal >60 [facility] Comment on above: Result Comment: These results are not intended for use in patients <18 years of age. eGFR results are calculated without a race factor using the 2020 CKD-EPI equation. Careful clinical correlation is recommended, particularly when comparing to results calculated using previous equations. The CKD-EPI equation is less accurate in patients with extremes of muscle mass, extra-renal metabolism of creatine, excessive creatine ingestion, or following therapy that affects renal tubular secretion. Performed By: #### C DP, LIP, CP #### [facility] [address] [place] [address] Production Support Manager: Eric Rossi MD Glucose [Mass/Vol] 90 mg/dL Normal 70-99 [facility] Comment on above: Performed By: #### C DP, LIP, CP #### [facility] [address] [place] [phone] Production Support Manager: Eric Rossi MD Potassium [Moles/Vol] 3.4 mmol/L Low 3.7-5.3 [facility] Comment on above: Performed By: #### C DP LIP, CP #### [employer] [address] [place] [address] Production Support Manager: Eric Rossi MD Protein [Mass/Vol] 7.0 g/dL Normal 6.4-8.3 [facility] Comment on above: Performed By: #### C DP LIP, CP #### [employer] [address] [place] [address] Production Support Manager: Eric Rossi MD Sodium [Moles/Vol] 134 mmol/L Low 135-144 [facility] Comment on above: Performed By: #### C DP LIP, CP #### [employer] [address] [place] [phone] Production Support Manager: Eric Rossi MD Urea nitrogen [Mass/Vol] 2 mg/dL Low 6-20 [facility] Comment on above: Performed By: #### C DP, LIP, CP #### [employer] [address] [place] [address] Production Support Manager: Eric Rossi MD Comprehensive Metabolic Pane [facility] 01-07-2023 Albumin [Mass/Vol] 3.1 g/dL Low 3.5 - 5.2 g/dL [employer] [facility]ENTER[facility] [employer] [facility] [employer] Albumin/Globulin [Mass ratio] 0.8 {ratio} Low 1.0 - 2.5 [facility] ALP [Catalytic activity/Vol] 90 U/L 35 - 104 U/L [facility] ALT [Catalytic activity/Vol] 15 U/L 5 - 33 U/L [facility] Anion gap [Moles/Vol] 11 mmol/L 9 - 17 mmol/L [facility] AST [Catalytic activity/Vol] 17 U/L NINF - 32 U/L [facility] Bilirubin [Mass/Vol] 0.3 mg/dL 0.3 - 1.2 mg/dL [facility] Calcium [Mass/Vol] 8.5 mg/dL Low 8.6 - 10.4 mg/dL [facility] Chloride [Moles/Vol] 107 mmol/L 98 - 107 mmol/L [facility] CO2 [Moles/Vol] 16 mmol/L Low 20 - 31 mmol/L [facility] Creatinine [Mass/Vol] 0.45 mg/dL Low 0.50 - 0.90 mg/dL [facility] GFR/1.73 sq M.predicted MDRD (S/P/Bld) [Vol rate/Area] - PINF [facility] Comment on above: These results are not intended for use in patients <18 years of age. eGFR results are calculated without a race factor using the 2020 CKD-EPI equation. Careful clinical correlation is recommended, particularly when comparing to results calculated using previous equations. The CKD-EPI equation is less accurate in patients with extremes of muscle mass, extra-renal metabolism of creatine, excessive creatine ingestion, or following therapy that affects renal tubular secretion. Glucose [Mass/Vol] 90 mg/dL 70 - 99 mg/dL [facility] Potassium [Moles/Vol] 3.4 mmol/L Low 3.7 - 5.3 mmol/L [facility] Protein [Mass/Vol] 7.0 g/dL 6.4 - 8.3 g/dL [facility] Sodium [Moles/Vol] 134 mmol/L Low 135 - 144 mmol/L [facility] Urea nitrogen [Mass/Vol] 2 mg/dL Low 6 - 20 mg/dL [facility] Lactic Acidon 01-07-2023 Lactic Acid,Whole Bl 1.1 mmol/L Normal 0.7-2.1 [facility] Comment on above: Performed By: #### L ACTIC #### [facility] [address] [place] [address] Production Support Manager: Eric Rossi MD Lactic Acid, Whole Blood 1.1 mmol/L 0.7 - 2.1 mmol/L [facility] [employer] Lipaseon 01-07-2023 Lipase [Catalytic activity/Vol] 10 U/L Low 13-60 [facility] Comment on above: Performed By: #### S WCGP #### [facility] [address] [place], [place] [phone] Production Support Manager: Eric Rossi MD Lipase [Catalytic activity/Vol] 10 U/L Low 13 - 60 U/L [facility] [employer] No Panel Informationon 01-07 Interpretation and review of laboratory results Abnormal [facility] [employer] US KIDNEYSon 01-07-2023 US KIDNEYS EXAM: US KIDNEYS HISTORY: pain. Pelvic pain for 3 days. 19 weeks' . COMPARISON: 05/26/2018. TECHNIQUE: Renal ultrasound was performed utilizing hussein scale and color Doppler imaging. FINDINGS: RIGHT KIDNEY: Maximum length: 10.5 cm. Morphology: Normal echogenicity; no nephrolithiasis identified. Solid/cystic lesions: None. Collecting system: Mild hydronephrosis with prominence of the renal pelvis. LEFT KIDNEY: Maximum length: 13.9 cm. Morphology: Normal echogenicity; no nephrolithiasis identified. The collecting system appears duplicated. Solid/cystic lesions: None. Collecting system: No hydronephrosis. BLADDER: Prevoid volume: 35 mL. Post void volume: Not measured. Bladder Morphology: Normal wall thickness; no filling defect. Diminished right ureteral jet compared to the left. Additional findings: None. IMPRESSION: 1. Mild right hydronephrosis with relatively diminished ureteral jet on the right. No obstructing abnormality is identified. 2. Unremarkable appearance of left kidney. Electronically authenticated by: LADONNA MCKEON Date: 2023-01-07 10:05 Normal [facility] Urinalysis w/ Microon 2022 Bilirubin, SemiQt,Ur Negative Normal NEG [facility] Comment on above: Performed By: #### S WCGP #### [address] [address] Production Support Manager: Eric Rossi MD Blood, Urine Negative Normal NEG [facility] Comment on above: Performed By: #### S WCGP #### [address] [address] Production Support Manager: Eric Rossi MD Casts 0 TO 2 HYALINE Normal 0-8 [facility] Comment on above: Result Comment: Refe rence range defined for non-centrifuged specimen. Performed By: #### S WCGP #### [address] [address] Production Support Manager: Eric Rossi MD Clarity (U) Clear Normal CLEAR [facility] Comment on above: Performed By: #### S WCGP #### [address] [address] Production Support Manager: Eric Rossi MD Color (U) Yellow Normal YEL [facility] Comment on above: Performed By: #### S WCGP #### [address] [address] Production Support Manager: Eric Rossi MD Epithelial cells LM Ql (Urine sed) 2 TO 5 Normal 0-5 [facility] Comment on above: Performed By: #### S WCGP #### [address] [address] Production Support Manager: Eric Rossi MD Glucose Ql (U) Negative Normal NEG [facility] Comment on above: Performed By: #### S WCGP #### [address] [address] Production Support Manager: Eric Rossi MD Ketones Ql (U) MODERATE Abnormal NEG [facility] Comment on above: Performed By: #### S WCGP #### [address] [address] Production Support Manager: Eric Rossi MD Leukocyte esterase Test strip Ql (U) Negative Normal NEG [facility] Comment on above: Performed By: #### S WCGP #### [address] [address] Production Support Manager: Eric Rossi MD Nitrite,Ur Negative Normal NEG [facility] Comment on above: Performed By: #### S WCGP #### [address] [address] Production Support Manager: Eric Rossi MD PH,Ur 7.5 Normal 5.0-8.0 [facility] Comment on above: Performed By: #### S WCGP #### [address] [address] Production Support Manager: Eric Rossi MD Protein Ql (U) Negative Normal NEG [facility] Comment on above: Performed By: #### S WCGP #### [address] [address] Production Support Manager: Eric Rossi MD Spec. Axson,Ur 1.014 Normal 1.005-1.03 0 [facility] Comment on above: Performed By: #### S WCGP #### [address] [address] Production Support Manager: Eric Rossi MD Urine RBC's 0 TO 2 Normal 0-4 [facility] Comment on above: Result Comment: Refe rence range defined for non-centrifuged specimen. Performed By: #### S WCGP #### [address] [address] Production Support Manager: Eric Rossi MD Urine WBC's 2 TO 5 Normal 0-5 [facility] Comment on above: Performed By: #### S WCGP #### [facility] [address] [place], [place] [phone] Production Support Manager: Eric Rossi MD Urobilinogen,Ur Normal Normal NORM [facility] Comment on above: Performed By: #### S WCGP #### [facility] [address] [place], [place] [phone] Production Support Manager: Eric Rossi MD Urinalysis with Microscopico n 01-07-2023 Bilirubin Urine Negative NEGATIVE [facility] Casts UA 0 TO 2 HYALINE Refer ence range defined for non-centrifuged specimen. [facility] Color, UA Yellow Yellow [facility] Epithelial Cells UA 2 TO 5 [facility] Glucose Auto test strip (U) [Mass/Vol] Negative NEGATIVE [facility] Interpretation and review of laboratory results Abnormal [facility] Ketones (U) [Mass/Vol] MODERATE Abnormal NEGATIVE [facility] Leukocyte esterase Auto test strip Ql (U) Negative NEGATIVE [facility] Nitrite Auto test strip Ql (U) Negative NEGATIVE [facility] Protein (U) [Mass/Vol] 7.5 mg/dL 5.0 - 8.0 [facility] Protein (U) [Mass/Vol] Negative NEGATIVE [facility] RBC clumps Auto (Urine sed) [#/Area] 0 TO 2 [facility] Comment on above: Reference range defi sonali for non-centrifuged specimen. Specific Axson, UA 1.014 1.005 - 1.030 [facility] Turbidity UA Clear Clear [facility] Urine Hgb Negative NEGATIVE [facility] Urobilinogen, Urine Normal Normal [facility] WBC, UA 2 TO 5 [facility] VAGINITIS DNA PROBEon 2022 Elyse Species, DNA Probe Negative NEGATIVE [facility] Comment on above: for Elyse sp. Method of testing is a DNA probe intended for detection and identification of Elyse species, Gardnerella vaginalis, and Trichomonas vaginalis nucleic acid in vaginal fluid specimens from patients with symptoms of vaginitis/vaginosis. Gardnerella Vaginalis, DNA Probe Positive Abnormal NEGATIVE [facility] Comment on above: for Gardnerella vagi nalis Interpretation and review of laboratory results Abnormal [facility] Source .VAGINAL SWAB [facility] Trichomonas Vaginalis DNA Negative NEGATIVE [facility] Comment on above: for Trichomonas Vagi nalis [facility] Vaginitis DNA Probeon 2022 Elyse Negative Normal NEG [facility] Comment on above: Result Comment: for Elyse sp. Method of testing is a DNA probe intended for detection and identification of Elyse species, Gardnerella vaginalis, and Trichomonas vaginalis nucleic acid in vaginal fluid specimens from patients with symptoms of vaginitis/vaginosis. Performed By: #### S WCGP #### [facility] [employer] [address] [place] [phone] Production Support Manager: Eric Rossi MD Gardnerella Positive Abnormal NEG [facility] Comment on above: Result Comment: for Gardnerella vaginalis Performed By: #### S WCGP #### [facility] [employer] [address] [place] [phone] Production Support Manager: Eric Rossi MD Trichomonas Negative Normal NEG [facility] Comment on above: Result Comment: for Trichomonas Vaginalis Performed By: #### S WCGP #### [address] [address] Production Support Manager: Eric Rossi MD Source .VAGINAL SWAB Normal [facility] Comment on above: Performed By: #### S WCGP #### [employer] [address] [place] [phone] Production Support Manager: Eric Rossi MD CBC AUTO DIFFon 01-06-2023 BASO # 0.0 103/ul Normal 0.0-0.1 [facility] Comment on above: Performed By: #### D RUGRPD #### [facility] [address] [address] [address] Colette Worthington Basophils/100 WBC (Bld) 0.2 % Normal 0.2-2.0 [facility] Comment on above: Performed By: #### D RUGRPD #### [facility] [address] [place] [address] Dr. Colette Worthington EO # 0.1 103/ul Normal 0.0-0.7 [facility] Comment on above: Performed By: #### D RUGRPD #### [facility] [address] [place] [address] Dr. Colette Worthington Eosinophils/100 WBC (Bld) 0.5 % Critically low 0.9-7.0 [facility] Comment on above: Performed By: #### D RUGRPD #### [facility] [address] [place] [address] Dr. Colette Worthington Erythrocyte distribution width (RBC) [Ratio] 12.4 % Normal 11.0-15.0 [facility] Comment on above: Performed By: #### D RUGRPD #### [facility] [address] [place] [address] Dr. Colette Worthington Hematocrit (Bld) [Volume fraction] 32.9 % Critically low 36.0-48.0 [facility] Comment on above: Performed By: #### D RUGRPD #### [facility] [address] [place] [address] Dr. Colette Worthington Hemoglobin (Bld) [Mass/Vol] 11.0 g/dL Critically low 12.0-16.0 [facility] Comment on above: Performed By: #### D RUGRPD #### [facility] [address] [place] [address] Dr. Colette Worthington IG # 0.04 10e3/ul Critically high 0.00-0.03 [facility] Comment on above: Performed By: #### D RUGRPD #### [facility] [address] [place] [address] Dr. Colette Worthington IG % 0.3 % Normal 0.0-0.5 [facility] Comment on above: Performed By: #### D RUGRPD #### [facility] [address] [place] [address] Dr. Colette Worthington LYMPH # 1.8 103/ul Normal 1.2-3.8 [facility] Comment on above: Performed By: #### D RUGRPD #### [facility] [address] [place] [address] Dr. Colette Worthington Lymphocytes/100 WBC (Bld) 14.4 % Critically low 20.5-60.0 [facility] Comment on above: Performed By: #### D RUGRPD #### [facility] [address] [place] [address] Dr. Colette Worthington MANUAL DIFF REQ NO Normal [facility] Comment on above: Performed By: #### D RUGRPD #### [facility] [address] [place] [address] Dr. Colette Worthington MCH (RBC) [Entitic mass] 29.0 pg Normal 26.7-34.0 [facility] Comment on above: Performed By: #### D RUGRPD #### [facility] [address] [place] [address] Dr. Colette Worthington MCHC (RBC) [Mass/Vol] 33.4 g/dL Normal 29.9-35.2 [facility] Comment on above: Performed By: #### D RUGRPD #### [facility] [address] [place] [address] Dr. Colette Worthington MCV (RBC) [Entitic vol] 86.8 fL Normal 81.0-99.0 [facility] Comment on above: Performed By: #### D RUGRPD #### [facility] [address] [place] [address] Dr. Colette Worthington MONO # 0.9 103/ul Critically high 0.3-0.8 [facility] Comment on above: Performed By: #### D RUGRPD #### [facility] [address] [place] [address] Dr. Colette Worthington Monocytes/100 WBC (Bld) 6.7 % Normal 1.7-12.0 [facility] Comment on above: Performed By: #### D RUGRPD #### [facility] [address] [address] [address] Colette Worthington NEUT # 9.9 103/ul Critically high 1.4-6.5 [facility] Comment on above: Performed By: #### D RUGRPD #### [facility] [address] [address] [address] Colette Worthington Neutrophils/100 WBC (Bld) 77.9 % Critically high 43.0-75.0 [facility] Comment on above: Performed By: #### D RUGRPD #### [facility] [address] [address] [address] Colette Worthington Platelet mean volume (Bld) [Entitic vol] 10.3 fL Normal 9.5-13.5 [facility] Comment on above: Performed By: #### D RUGRPD #### [facility] [address] [place] [address] Dr. Colette Worthington PLT 255 103/ul Normal 150-450 [facility] Comment on above: Performed By: #### D RUGRPD #### [facility] [address] [address] [address] Colette Worthington RBC 3.79 106/ul Critically low 4.20-5.40 [facility] Comment on above: Performed By: #### D RUGRPD #### [facility] [address] [address] [address] Colette Worthington WBC 12.7 103/ul Critically high 4.0-11.0 [facility] Comment on above: Performed By: #### D RUGRPD #### [facility] [address] [place] [address] Dr. Colette Worthington US APPENDIXon 01-06-2023 US APPENDIX EXAM: US APPENDIX HISTORY: Abdominal pain ; midline pelvic pain for 2 days; 27 weeks 5 days COMPARISON: None. TECHNIQUE: Transabdominal ultrasound FINDINGS: A few benign-appearing lymph nodes within right lower quadrant. 6.4 x 2.2 x 3.2 cm structure measured within right lower quadrant suspected represent bowel/cecum. No appreciable appendix. No free fluid. Live within uterus noted. IMPRESSION: 1. No appreciable appendix or secondary findings to suggest appendicitis. Electronically authenticated by: ALY WHITE Date: 2023-01-06 13:00 Normal [facility] US PREG CERVICAL LENGTHon US PREG CERVICAL LENGTH EXAMINATION: US PREG CERVICAL LENGTH HISTORY: Abdominal pain COMPARISON: Ultrasound cervical length 01/05/2023 TECHNIQUE: Transabdominal and transvaginal sonographic examination for cervical length. FINDINGS: CERVIX LENGTH: Right cervix is 5.2 cm, closed. POSITION: Cephalic Age by EDC: 18 weeks 6 days VANESSA by EDC: 06/03/2023 IMPRESSION: 1. Single live intrauterine . 2. Bicornuate uterus with in right uterine cavity. Right cervix is 5.2 cm in length and closed. Electronically authenticated by: ALY WHITE Date: 2023-01-06 15:02 Normal [facility] CBC AUTO DIFFon 01-05-2023 BASO # 0.0 103/ul Normal 0.0-0.1 [facility] Comment on above: Performed By: #### C BC #### [facility] [address] [place] [address] Dr. Colette Worthington Basophils/100 WBC (Bld) 0.3 % Normal 0.2-2.0 [facility] Comment on above: Performed By: #### C BC #### [facility] [address] [place] [address] Dr. Colette Worthington EO # 0.2 103/ul Normal 0.0-0.7 [facility] Comment on above: Performed By: #### C BC #### [facility] [address] [place] [address] Dr. Colette Worthington Eosinophils/100 WBC (Bld) 1.5 % Normal 0.9-7.0 [facility] Comment on above: Performed By: #### C BC #### [facility] [address] [place] [address] Dr. Colette Worthington Erythrocyte distribution width (RBC) [Ratio] 12.5 % Normal 11.0-15.0 [facility] Comment on above: Performed By: #### C BC #### [facility] [address] [place] [address] Dr. Colette Worthington Hematocrit (Bld) [Volume fraction] 37.5 % Normal 36.0-48.0 [facility] Comment on above: Performed By: #### C BC #### [facility] [address] [place] [address] Dr. Colette Worthington Hemoglobin (Bld) [Mass/Vol] 12.8 g/dL Normal 12.0-16.0 [facility] Comment on above: Performed By: #### C BC #### [facility] [address] [address] [address] Colette Worthington IG # 0.04 10e3/ul Critically high 0.00-0.03 [facility] Comment on above: Performed By: #### C BC #### [facility] [address] [place] [address] Dr. Colette Worthington IG % 0.3 % Normal 0.0-0.5 [facility] Comment on above: Performed By: #### C BC #### [facility] [address] [place] [address] Dr. Colette Worthington LYMPH # 2.6 103/ul Normal 1.2-3.8 [facility] Comment on above: Performed By: #### C BC #### [facility] [address] [place] [address] Dr. Colette Worthington Lymphocytes/100 WBC (Bld) 18.3 % Critically low 20.5-60.0 [facility] Comment on above: Performed By: #### C BC #### [facility] [address] [place] [address] Dr. Colette Worthington MANUAL DIFF REQ NO Normal [facility] Comment on above: Performed By: #### C BC #### [facility] [address] [address] [address] Colette Worthington MCH (RBC) [Entitic mass] 29.7 pg Normal 26.7-34.0 [facility] Comment on above: Performed By: #### C BC #### [facility] [address] [place] [address] Dr. Colette Worthington MCHC (RBC) [Mass/Vol] 34.1 g/dL Normal 29.9-35.2 [facility] Comment on above: Performed By: #### C BC #### [facility] [address] [place] [address] Dr. Colette Worthington MCV (RBC) [Entitic vol] 87.0 fL Normal 81.0-99.0 [facility] Comment on above: Performed By: #### C BC #### [facility] [address] [place] [address] Dr. Colette Worthington MONO # 0.8 103/ul Normal 0.3-0.8 [facility] Comment on above: Performed By: #### C BC #### [facility] [address] [place] [address] Dr. Colette Worthington Monocytes/100 WBC (Bld) 5.8 % Normal 1.7-12.0 [facility] Comment on above: Performed By: #### C BC #### [facility] [address] [place] [address] Dr. Colette Worthington NEUT # 10.5 103/ul Critically high 1.4-6.5 [facility] Comment on above: Performed By: #### C BC #### [facility] [address] [place] [address] Dr. Colette Worthington Neutrophils/100 WBC (Bld) 73.8 % Normal 43.0-75.0 [facility] Comment on above: Performed By: #### C BC #### [facility] [address] [place] [address] Dr. Colette Worthington Platelet mean volume (Bld) [Entitic vol] 10.4 fL Normal 9.5-13.5 [facility] Comment on above: Performed By: #### C BC #### [facility] [address] [place] [address] Dr. Colette Worthington PLT 309 103/ul Normal 150-450 [facility] Comment on above: Performed By: #### C BC #### [facility] [address] [place] [address] Dr. Colette Worthington RBC 4.31 106/ul Normal 4.20-5.40 [facility] Comment on above: Performed By: #### C BC #### [facility] [address] [address] [address] Colette Worthington WBC 14.2 103/ul Critically high 4.0-11.0 [facility] Comment on above: Performed By: #### C BC #### [facility] [address] [place] [address] Dr. Colette Worthington CULTURE URINEon 01-05-2023 CULTURE URINE Culture Observations : NO GROWTH. Normal [facility] Comment on above: Performed By: #### H BSANS #### [facility] [address] [place] [address] Dr. Colette Worthington DRUG SCREEN RAPID (URINE)on 01-05-2023 AMP Negative Normal NEGATIVE [facility] Comment on above: Performed By: #### D RUGRPD #### [facility] [address] [place] [address] Dr. Colette Worthington BAR Negative Normal NEGATIVE [facility] Comment on above: Performed By: #### D RUGRPD #### [facility] [address] [place] [address] Dr. Colette Worthington BUP Negative Normal NEGATIVE [facility] Comment on above: Performed By: #### D RUGRPD #### [facility] [address] [place] [address] Dr. Colette Worthington BZO Negative Normal NEGATIVE [facility] Comment on above: Performed By: #### D RUGRPD #### [facility] [address] [place] [address] Dr. Colette Worthington CAT Negative Normal NEGATIVE [facility] Comment on above: Performed By: #### D RUGRPD #### [facility] [address] [place] [address] Dr. Colette Worthington CUT-OFFS SEE BELOW Normal [facility] Comment on above: Result Comment: AMP (Amphetamine): 500ng/mL, BAR (Barbituates): 200 ng/mL, BZO (Benzodiazepines): 150 ng/mL, BUP (Buprenorphine): 10 ng/mL, CAT (Cocaine): 150 ng/mL, mAMP (Methamphetamine): 500 ng/mL, MTD (Methadone): 200 ng/mL, OPI (Opiates): 100 ng/mL, OXY (Oxycodone): 100 ng/mL, PCP (Phencyclidine): 25 ng/mL, PPX (Propoxyphene): 300 ng/mL, THC (Cannabinoids): 50 ng/mL, TCA (Trycyclic Antidepressants): 300 ng/mL Performed By: #### D RUGRPD #### [facility] [address] [place] [address] Dr. Colette Worthington DRUG CUT HEADER DRUG CLASS TEST SYST EM CUT-OFF CONCENTRATIONS ARE FOLLOWS: Normal [facility] Comment on above: Performed By: #### D RUGRPD #### [facility] [address] [place] [address] Dr. Colette Worthington mAMP Negative Normal NEGATIVE [facility] Comment on above: Performed By: #### D RUGRPD #### [facility] [address] [place] [address] Dr. Colette Worthington MTD Negative Normal NEGATIVE [facility] Comment on above: Performed By: #### D RUGRPD #### [facility] [address] [place] [address] Dr. Colette Worthington OPI Negative Normal NEGATIVE [facility] Comment on above: Performed By: #### D RUGRPD #### [facility] [address] [place] [address] Dr. Colette Worthington OXY Negative Normal NEGATIVE [facility] Comment on above: Performed By: #### D RUGRPD #### [facility] [address] [place] [address] Dr. Colette Worthington PCP Negative Normal NEGATIVE [facility] Comment on above: Performed By: #### D RUGRPD #### [facility] [address] [place] [address] Dr. Colette Worthington PPX Negative Normal NEGATIVE [facility] Comment on above: Performed By: #### D RUGRPD #### [facility] [address] [place] [address] Dr. Colette Worthington TCA Negative Normal NEGATIVE [facility] Comment on above: Performed By: #### D RUGRPD #### [facility] [address] [place] [address] Dr. Colette Worthington THC Positive Abnormal NEGATIVE [facility] Comment on above: Performed By: #### D RUGRPD #### [facility] [address] [place] [address] Dr. Colette Worthington ER URINE PROFILEon 3 Bilirubin Ql (U) Negative Normal NEGATIVE [facility] Comment on above: Performed By: #### Chastity MCCRACKEN UMICRO #### [facility] [address] [place] [address] Dr. Colette Worthington Clarity (U) CLEAR Normal CLEAR [facility] Comment on above: Performed By: #### Chastity MCCRACKEN UMICRO #### [facility] [address] [place] [address] Dr. Colette Worthington Color (U) YELLOW Normal YELLOW [facility] Comment on above: Performed By: #### Chastity MCCRACKEN UMICRO #### [facility] [address] [place] [address] Dr. Colette READ A micrscopic examina tion will be performed if indicated. Normal [facility] Comment on above: Performed By: #### Chastity MCCRACKEN UMICRO #### [facility] [address] [place] [address] Dr. Colette Worthington Glucose Ql (U) Negative Normal NEGATIVE [facility] Comment on above: Performed By: #### Chastity MCCRACKEN UMICRO #### [facility] [address] [place] [address] Dr. Colette Worthington Hemoglobin Ql (U) Negative Normal NEGATIVE [facility] Comment on above: Performed By: #### Chastity MCCRACKEN UMICRO #### [facility] [address] [place] [address] Dr. Colette Worthington Ketones Ql (U) Negative Normal NEGATIVE [facility] Comment on above: Performed By: #### Chastity MCCRACKEN UMICRO #### [facility] [address] [place] [address] Dr. Colette Worthington LEUKOCYTES TRACE Abnormal NEGATIVE [facility] Comment on above: Performed By: #### Chastity MCCRACKEN UMICRO #### [facility] [address] [place] [address] Dr. Colette Worthington Nitrite Ql (U) Negative Normal NEGATIVE [facility] Comment on above: Performed By: #### Chastity MCCRACKEN UMICRO #### [facility] [address] [place] [address] Dr. Colette Worthington pH (U) 5.5 [pH] Normal 5-9 [facility] Comment on above: Performed By: #### Chastity MCCRACKEN UMICRO #### [facility] [address] [place] [address] Dr. Colette Worthington SPEC GRAVITY >=1.030 Abnormal 1.005-<=1. 025 [facility] Comment on above: Performed By: #### Chastity MCCRACKEN UMICRO #### [facility] [address] [place] [address] Dr. Colette Worthington UA PROTEIN Negative Normal NEGATIVE/ TRACE [facility] Comment on above: Performed By: #### Chastity MCCRACKEN ICRO #### [facility] [address] [place] [address] Dr. Colette Worthington UR MICRO IND INDICATED Normal [facility] Comment on above: Performed By: #### Chastity MCCRACKEN UMICRO #### [facility] [address] [place] [address] Dr. Colette Worthington Urobilinogen Qn (U) 0.2 {Colleen'U}/dL Normal 0.2 - 1.0 [facility] Comment on above: Performed By: #### Chastity MCCRACKEN UMICRO #### [facility] [address] [place] [address] Dr. Colette Worthington UA (CLEAN/CATCH) KEYSEATER OPERATOR/MICRO I F IND.on 01-05-2023 Bilirubin Ql (U) Negative Normal NEGATIVE [facility] Comment on above: Performed By: #### B OX #### [facility] [address] [place] [address] Dr. Colette Worthington Clarity (U) CLEAR Normal CLEAR [facility] Comment on above: Performed By: #### B OX #### [facility] [address] [place] [address] Dr. Colette Worthington Color (U) YELLOW Normal YELLOW [facility] Comment on above: Performed By: #### B OX #### [facility] [address] [place] [address] Dr. Colette Worthington Glucose Ql (U) Negative Normal NEGATIVE [facility] Comment on above: Performed By: #### B OX #### [facility] [address] [place] [address] Dr. Colette Worthington Hemoglobin Ql (U) Negative Normal NEGATIVE [facility] Comment on above: Performed By: #### B OX #### [facility] [address] [place] [address] Dr. Colette Worthington Ketones Ql (U) 15 mg/dl Abnormal NEGATIVE [facility] Comment on above: Performed By: #### B OX #### [facility] [address] [place] [address] Dr. Colette Worthington LEUKOCYTES Negative Normal NEGATIVE [facility] Comment on above: Performed By: #### B OX #### [facility] [address] [place] [address] Dr. Colette Worthington Nitrite Ql (U) Negative Normal NEGATIVE [facility] Comment on above: Performed By: #### B OX #### [facility] [address] [place] [address] Dr. Colette Worthington pH (U) 7.0 [pH] Normal 5-9 [facility] Comment on above: Performed By: #### B OX #### [facility] [address] [place] [address] Dr. Colette Worthington SPEC GRAVITY 1.015 Normal 1.005-<=1. 025 [facility] Comment on above: Performed By: #### B OX #### [facility] [address] [place] [address] Dr. Colette Worthington UA PROTEIN TRACE Normal NEGATIVE/ TRACE [facility] Comment on above: Performed By: #### B OX #### [facility] [address] [place] [address] Dr. Colette Worthington UR MICRO IND NOT INDICATED Normal [facility] Comment on above: Performed By: #### B OX #### [facility] [address] [place] [address] Dr. Colette Worthington Urobilinogen Qn (U) 1.0 {Colleen'U}/dL Normal 0.2 - 1.0 [facility] Comment on above: Performed By: #### B OX #### [facility] [address] [place] [address] Dr. Colette Worthington URINE MICROSCOPIC ONLYon BACTERIA MODERATE Abnormal NONE SEEN [facility] Comment on above: Performed By: #### E KAYKAY UMICRO #### [facility] [address] [place] [address] Dr. Colette Worthington Bacteria identified Cx Nom (U) INDICATED Normal [facility] Comment on above: Performed By: #### E KAYKAY UMICRO #### [facility] [address] [place] [address] Dr. Colette Worthington CAST NONE SEEN Normal NONE SEEN [facility] Comment on above: Performed By: #### E RUDaphne UMICRO #### [facility] [address] [place] [address] Dr. Colette Worthington Crystals LM Nom (Urine sed) NONE SEEN Normal NONE SEEN [facility] Comment on above: Performed By: #### E RUR UMICRO #### [facility] [address] [place] [address] Dr. Colette Worthington Epithelial cells LM Ql (Urine sed) MANY Abnormal NONE SEEN /RARE [facility] Comment on above: Performed By: #### E RUR UMICRO #### [facility] [address] [place] [address] Dr. Colette Worthington MUCOUS TRACE Abnormal NONE SEEN [facility] Comment on above: Performed By: #### E RUR, UMICRO #### [facility] [address] [place] [address] Dr. Colette Worthington RBC NONE SEEN Abnormal 0-2 [facility] Comment on above: Performed By: #### E RUR UMICRO #### [facility] [address] [address] [address] Colette Worthington WBC 0-2 Abnormal NONE SEEN [facility] Comment on above: Performed By: #### MARK TIAN #### [facility] [address] [place], [place] [address] Dr. Colette Worthington US PREG CERVICAL LENGTHon US PREG CERVICAL LENGTH EXAMINATION: US PREG CERVICAL LENGTH HISTORY: Abdominal pain COMPARISON: No relevant comparison available. FINDINGS: Uterus: Bicornuate uterus. on right side. Right cervix: 5.1 cm in length and closed. Left cervix: 5.1 cm in length and closed. GA: 18 weeks 5 days VANESSA: 06/03/2023 IMPRESSION: 1. Bicornuate uterus with right-side . The right and left cervix are 5.1 cm in length and closed. Electronically authenticated by: ALY WHITE Date: 2023-01-05 15:14 Normal [facility] US PREG CERVICAL LENGTH EXAM: US PREG CERVICAL LENGTH HISTORY: Abdominal pain COMPARISON: Pelvic ultrasound examination dated 12/16/2022. TECHNIQUE: Transvaginal ultrasound of the pelvis was performed using Duplex Doppler. 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 The right cervix is closed measuring up to 5.0 cm in length. The left cervix is closed measuring up to 5.1 cm in length. An intrauterine gestation in cephalic position is seen within the right uterine horn. IMPRESSION: 1. Bicornuate uterus with a duplicated cervix. The right cervix is closed measuring up to 5.0 cm in length, and the left cervix is closed measuring 5.1 cm in length. 2. An intrauterine gestation in cephalic position is seen within the right uterine horn. Electronically authenticated by: Elaina BALTAZAR Date: 2023-01-05 00:27 Normal [facility] US PREG PLACENTAon US PREG PLACENTA EXAMINATION: US PREG PLACENTA, US PREG GROWTH HISTORY: Abdominal pain COMPARISON: No relevant comparison available. FINDINGS: PLACENTA: Bicornuate uterus with right side placenta demonstrating normal appearance and echogenicity. No subchorionic hematoma or abruption. Left uterine cavity is filled with heterogeneous slightly hypoechoic material within a few small cystic areas; no increased vascularity. #: 1.0 Presentation: CEPHALIC Heart Rate: 156.1 bpm Amniotic Fluid Volume: Subjectively normal BIOMETRY: BPD: 4.1 cm cm; 18 weeks 3 days HC: 15.5 cm cm; 18 weeks 3 days AC: 12.9 cm cm; 18 weeks 3 days FL: 2.7 cm cm; 18 weeks 1 days EFW: 20 37 g; 27% FL/AC: 20.8 FL/BPD: 65.5 HC/AC: 1.2 GESTATIONAL AGE: VANESSA by EDC: 18 weeks 5 days Age by EDC: 06/03/2023 Ultrasound Age: 18 weeks 3 days VANESSA by US: 06/05/2023 IMPRESSION: 1. Single live intrauterine with growth detailed above. 2. Normal-appearing placenta within right side of bicornuate uterus where is located. 3. Left uterine cavity is filled with heterogeneous slightly hypoechoic material without increased vascularity, of uncertain etiology. Hypertrophy of endometrium within left cavity versus clotted blood products. The left endometrial cavity was normal appearing on the patient's initial ultrasound 10/28/2022. 4. No acute findings. Electronically authenticated by: ALY WHITE Date: 2023-01-05 16:27 Normal [facility] US PREG CERVICAL LENGTHon US PREG CERVICAL LENGTH EXAMINATION: US PREG CERVICAL LENGTH HISTORY: Congenital duplication of uterus COMPARISON: Ultrasound cervical length 11/16/2022 TECHNIQUE: Transabdominal and transvaginal sonographic examination for cervical length. FINDINGS: CERVIX LENGTH: Right cervix is 4.8 cm in length and closed. POSITION: Fetus is located within right endometrial cavity. HEART RATE: 151 bpm Age by EDC: 15 weeks 6 days VANESSA by EDC: 06/03/2023 IMPRESSION: 1. Single live intrauterine within right endometrial cavity. 2. Right cervix is closed and 4.8 cm in length. Electronically authenticated by: ALY WHITE Date: 2022-12-16 09:01 Normal [facility] HEP B SURFACE ANTIGEN SCREEN on 11-17-2022 HBsAg Screen Negative Normal Negative [facility] Comment on above: Performed By: #### H BSA #### [facility] [address] [place] [address] Dr. Colette Worthington HEPATITIS C VIRUS AB W/ REFL EX QUANTon 11-17-2022 HCV AB Non-Reactive Normal Non Reactive [facility] Comment on above: Performed By: #### B OX #### [facility] [address] [place] [address] Dr. Colette Worthington Interpretation: Comment Normal [facility] Comment on above: Result Comment: Not infected with HCV unless early or acute infection is suspected (which may be delayed in an immunocompromised individual), or other evidence exists to indicate HCV infection. Performed By: #### B OX #### [facility] [address] [place] [address] Dr. Colette Worthington HIV 1 AND 2 WITH REFLEXon HIV Screen 4th Generation wRfx Non-Reactive Normal Non Reactive [facility] Comment on above: Result Comment: HIV Negative HIV-1/HIV-2 antibodies and HIV-1 p24 antigen were NOT detected. There is no laboratory evidence of HIV infection. Performed By: #### H IV12 #### [facility] [address] [place] [address] Dr. Colette Worthington RPR QUANTon 11-17-2022 Rapid Plasma Reagin, Quant Non-Reactive Normal NonRea<1:1 [facility] Comment on above: Result Comment: Lida decker Note: This test does not meet current guidelines for screening and diagnosis of syphilis. This test is intended for following treatment response in patients being treated for syphilis infection. To screen for syphilis infection, a reflex cascade that includes both RPR and a treponema-specific assay should be utilized, such as Treponema pallidum (Syphilis) Screening [place] (399529) or Rapid Plasma Reagin (RPR) Test With Reflex to Quantitative RPR and Confirmatory Treponema pallidum Antibodies (384030). Performed By: #### B OX #### [facility] [address] [place] [address] Dr. Colette Worthington RUBELLA AB IGGon 11-17-2022 Rubella Antibodies, IgG 10.10 index Normal Immune >0.99 [facility] Comment on above: Result Comment: Non- immune <0.90 Equivocal 0.90 - 0.99 Immune >0.99 Performed By: #### D RUGRPD #### [facility] [address] [place] [address] Dr. Colette Worthington US PREG CERVICAL LENGTHon US PREG CERVICAL LENGTH EXAMINATION: US PREG CERVICAL LENGTH HISTORY: Bicornuate uterus COMPARISON: Ultrasound transvaginal 10/28/2022 TECHNIQUE: Transabdominal and transvaginal sonographic examination for cervical length. FINDINGS: CERVIX LENGTH: 4.1 cm, closed. HEART RATE: 151 bpm Age by EDC: 11 weeks 4 days VANESSA by EDC: 06/03/2023 IMPRESSION: 1. Single live intrauterine . 2. Closed cervix 4.1 cm in length. Electronically authenticated by: ALY WHITE Date: 2022-11-17 17:07 Normal [facility] BOX TEST SENT OUTon 11-16-19 23 SENT TO REF LAB 11/16/2022 Normal [facility] Comment on above: Performed By: #### B OX #### [facility] [address] [place] [address] Dr. Colette Worthington CBC AUTO DIFFon 11-16-2022 BASO # 0.0 103/ul Normal 0.0-0.1 [facility] Comment on above: Performed By: #### H BSANS #### [facility] [address] [address] [address] Colette Worthington Basophils/100 WBC (Bld) 0.5 % Normal 0.2-2.0 [facility] Comment on above: Performed By: #### H BSANS #### [facility] [address] [address] [address] Colette Worthington EO # 0.2 103/ul Normal 0.0-0.7 [facility] Comment on above: Performed By: #### H BSANS #### [facility] [address] [address] [address] Colette Worthington Eosinophils/100 WBC (Bld) 2.7 % Normal 0.9-7.0 [facility] Comment on above: Performed By: #### H BSANS #### [facility] [address] [place] [address] Dr. Colette Worthington Erythrocyte distribution width (RBC) [Ratio] 13.0 % Normal 11.0-15.0 [facility] Comment on above: Performed By: #### H BSANS #### [facility] [address] [place] [address] Dr. Colette Worthington Hematocrit (Bld) [Volume fraction] 38.9 % Normal 36.0-48.0 [facility] Comment on above: Performed By: #### H BSANS #### [facility] [address] [place] [address] Dr. Colette Worthington Hemoglobin (Bld) [Mass/Vol] 13.1 g/dL Normal 12.0-16.0 [facility] Comment on above: Performed By: #### H BSANS #### [facility] [address] [place] [address] Dr. Colette Worthington IG # 0.02 10e3/ul Normal 0.00-0.03 [facility] Comment on above: Performed By: #### H BSANS #### [facility] [address] [place] [address] Dr. Colette Worthington IG % 0.2 % Normal 0.0-0.5 [facility] Comment on above: Performed By: #### H BSANS #### [facility] [address] [place] [address] Dr. Colette Worthington LYMPH # 2.6 103/ul Normal 1.2-3.8 [facility] Comment on above: Performed By: #### H BSANS #### [facility] [address] [place] [address] Dr. Colette Worthington Lymphocytes/100 WBC (Bld) 30.0 % Normal 20.5-60.0 [facility] Comment on above: Performed By: #### H BSANS #### [facility] [address] [place] [address] Dr. Colette Worthington MANUAL DIFF REQ NO Normal [facility] Comment on above: Performed By: #### H BSANS #### [facility] [address] [place] [address] Dr. Colette Worthington MCH (RBC) [Entitic mass] 30.4 pg Normal 26.7-34.0 [facility] Comment on above: Performed By: #### H BSANS #### [facility] [address] [address] [address] Colette Worthington MCHC (RBC) [Mass/Vol] 33.7 g/dL Normal 29.9-35.2 [facility] Comment on above: Performed By: #### H BSANS #### [facility] [address] [address] [address] Colette Worthington MCV (RBC) [Entitic vol] 90.3 fL Normal 81.0-99.0 [facility] Comment on above: Performed By: #### H BSANS #### [facility] [address] [address] [address] Colette Worthington MONO # 0.7 103/ul Normal 0.3-0.8 [facility] Comment on above: Performed By: #### H BSANS #### [facility] [address] [address] [address] Colette Worthington Monocytes/100 WBC (Bld) 7.7 % Normal 1.7-12.0 [facility] Comment on above: Performed By: #### H BSANS #### [facility] [address] [place] [address] Dr. Colette Worthington NEUT # 5.0 103/ul Normal 1.4-6.5 [facility] Comment on above: Performed By: #### H BSANS #### [facility] [address] [address] [address] Colette Worthington Neutrophils/100 WBC (Bld) 58.9 % Normal 43.0-75.0 [facility] Comment on above: Performed By: #### H BSANS #### [facility] [address] [address] [address] Colette Worthington Platelet mean volume (Bld) [Entitic vol] 10.7 fL Normal 9.5-13.5 [facility] Comment on above: Performed By: #### H BSANS #### [facility] [address] [place] [address] Dr. Colette Worthington PLT 291 103/ul Normal 150-450 [facility] Comment on above: Performed By: #### H BSANS #### [facility] [address] [address] [address] Colette Worthington RBC 4.31 106/ul Normal 4.20-5.40 [facility] Comment on above: Performed By: #### H BSANS #### [facility] [address] [address] [address] Colette Worthington WBC 8.5 103/ul Normal 4.0-11.0 [facility] Comment on above: Performed By: #### H BSANS #### [facility] [address] [address] [address] Colette Worthington CULTURE URINEon 11-16-2022 CULTURE URINE Culture Observations : LIGHT GROWTH OF MIXED GENITAL DERRELL. NO POTENTIAL PATHOGENS SEEN. Normal [facility] Comment on above: Performed By: #### H BSANS #### [facility] [address] [place] [address] Dr. Colette Worthington DRUG SCREEN RAPID (URINE)on 11-16-2022 AMP Negative Normal NEGATIVE [facility] Comment on above: Performed By: #### B OX #### [facility] [address] [place] [address] Dr. Colette Worthington BAR Negative Normal NEGATIVE [facility] Comment on above: Performed By: #### B OX #### [facility] [address] [place] [address] Dr. Colette Worthington BUP Negative Normal NEGATIVE [facility] Comment on above: Performed By: #### B OX #### [facility] [address] [place] [address] Dr. Colette Worthington BZO Negative Normal NEGATIVE [facility] Comment on above: Performed By: #### B OX #### [facility] [address] [place] [address] Dr. Colette Worthington CAT Negative Normal NEGATIVE [facility] Comment on above: Performed By: #### B OX #### [facility] [address] [place] [address] Dr. Colette Worthington CUT-OFFS SEE BELOW Normal [facility] Comment on above: Result Comment: AMP (Amphetamine): 500ng/mL, BAR (Barbituates): 200 ng/mL, BZO (Benzodiazepines): 150 ng/mL, BUP (Buprenorphine): 10 ng/mL, CAT (Cocaine): 150 ng/mL, mAMP (Methamphetamine): 500 ng/mL, MTD (Methadone): 200 ng/mL, OPI (Opiates): 100 ng/mL, OXY (Oxycodone): 100 ng/mL, PCP (Phencyclidine): 25 ng/mL, PPX (Propoxyphene): 300 ng/mL, THC (Cannabinoids): 50 ng/mL, TCA (Trycyclic Antidepressants): 300 ng/mL Performed By: #### B OX #### [facility] [address] [place] [address] Dr. Colette Worthington DRUG CUT HEADER DRUG CLASS TEST SYST EM CUT-OFF CONCENTRATIONS ARE FOLLOWS: Normal [facility] Comment on above: Performed By: #### B OX #### [facility] [address] [place] [address] Dr. Colette Worthington mAMP Negative Normal NEGATIVE [facility] Comment on above: Performed By: #### B OX #### [facility] [address] [place] [address] Dr. Colette Worthington MTD Negative Normal NEGATIVE [facility] Comment on above: Performed By: #### B OX #### [facility] [address] [place] [address] Dr. Colette Worthington OPI Negative Normal NEGATIVE [facility] Comment on above: Performed By: #### B OX #### [facility] [address] [place] [address] Dr. Colette Worthington OXY Negative Normal NEGATIVE [facility] Comment on above: Performed By: #### B OX #### [facility] [address] [place] [address] Dr. Colette Worthington PCP Negative Normal NEGATIVE [facility] Comment on above: Performed By: #### B OX #### [facility] [address] [place] [address] Dr. Colette Worthington PPX Negative Normal NEGATIVE [facility] Comment on above: Performed By: #### B OX #### [facility] [address] [address] [address] Colette Worthington TCA Negative Normal NEGATIVE [facility] Comment on above: Performed By: #### B OX #### [facility] [address] [address] [address] Colette Worthington THC Positive Abnormal NEGATIVE [facility] Comment on above: Performed By: #### B OX #### [facility] [address] [address] [address] Colette Worthington GLYCOHEMOGLOBIN A1Con 2022 ADA RECOMMENDATION SEE BELOW Normal [facility] Comment on above: Result Comment: ADA RECOMMENDED LIMIT 4.0 - 6.0 ADA THERAPEUTIC TARGET < 7.0 ACTION SUGGESTED > 7.0 Performed By: #### B OX #### [facility] [address] [place] [address] Dr. Colette Worthington Glucose [Mass/Vol] 97 mg/dL Normal [facility] Comment on above: Performed By: #### B OX #### [facility] [address] [address] [address] Colette Worthington HbA1c (Bld) [Mass fraction] 5.0 % Normal 4.5-6.2 [facility] Comment on above: Performed By: #### B OX #### [facility] [address] [place] [address] Dr. Colette Worthington TYPE AND SCREENon 11-16-2022 TYPE AND SCREEN Negative Normal [facility] Comment on above: Performed By: #### H BSANS #### [facility] [address] [place] [address] Dr. Colette Worthington US PREG TVon 10-28-2022 US PREG TV EXAMINATION: US PREG TV HISTORY: Missed period COMPARISON: No relevant comparison available. FINDINGS: GESTATIONAL SAC: Present and normal appearing. YOLK SAC: Present and normal appearing. POLE: Present and normal appearing. CARDIAC: Present. UTERUS: Bicornuate. OVARIES: Right: Not seen. Left: Not seen. CERVIX: 3.5 cm in length and closed. CUL-DE-SAC: Normal. OTHER: None. AGE BY LMP: 8 weeks 6 days VANESSA BY LMP: 06/03/2023 AGE BY US CRL: 8 weeks 2 days VANESSA BY US CRL: 06/07/2023 IMPRESSION: 1. Single live intrauterine within right horn of a bicornuate uterus. Electronically authenticated by: ALY WHITE Date: 2022-10-28 15:10 Normal [facility] US PREG TVon 10-13-2022 US PREG TV EXAMINATION: US PREG TV HISTORY: Irregular periods COMPARISON: 09/16/2022 FINDINGS: Anechoic echogenicity within the endometrial cavity measuring 1.6 x 1.0 x 0.8 cm with a mean sac diameter 1.1 cm, 5 weeks 2 days Yolk sac: 2 mm pole: Not visualized Cervix: Closed, 4.7 cm Clinical age: 6 weeks 4 days Clinical VANESSA: 06/03/2023 Ultrasound age: 5 weeks 2 days Ultrasound VANESSA: 06/12/2023 IMPRESSION: Suspected very early intrauterine gestation. Correlate with quantitative beta hCG Electronically authenticated by: CHICO NORIEGA Date: 2022-10-13 16:06 Normal [facility] PREG HCG QUALon 10-06-2022 , QUAL Positive Abnormal NEGATIVE [facility] Comment on above: Performed By: #### B OX #### [facility] [address] [address] [address] Colette Worthington PAP ACOG PANEL 2: 30 to 65on 09-22-2022 . . Normal [facility] Comment on above: Result Comment: Perf ormed at: WB Performed By: #### D RUGRPD #### [facility] [address] [address] [address] Colette Worthington Age Gdln ACOG Testing 30-65 Normal [facility] Comment on above: Performed By: #### D RUGRPD #### [facility] [address] [address] [address] Colette Worthington DIAGNOSIS: Comment Normal [facility] Comment on above: Result Comment: NEGA TIVE FOR INTRAEPITHELIAL LESION OR MALIGNANCY. SHIFT IN DERRELL SUGGESTIVE OF BACTERIAL VAGINOSIS. THIS SPECIMEN WAS RESCREENED PART OF OUR MANAGER CULTURE PROGRAM. Performed at: WB Performed By: #### D RUGRPD #### [facility] [address] [address] [address] Colette Worthington HPV Aptima Negative Normal Negative [facility] Comment on above: Result Comment: This nucleic acid amplification test detects fourteen high-risk HPV types (16,18,31,33,35,39,45,51,52,56,58,59,66,68) without differentiation. Performed at: =G Performed By: #### D RUGRPD #### [facility] [address] [place] [address] Dr. Colette Worthington HPV Genotype Reflex Comment Normal [facility] Comment on above: Result Comment: Crit eria not met, HPV Genotype not performed. Performed at: WB Performed By: #### D RUGRPD #### [facility] [address] [place] [address] Dr. Colette Worthington Methodology: Comment Normal [facility] Comment on above: Result Comment: This liquid based ThinPrep(R) pap test was screened with the use of an image guided system. Performed at: WB Performed By: #### D RUGRPD #### [facility] [address] [place] [address] Dr. Colette Worthington Note: Comment Normal [facility] Comment on above: Result Comment: The Pap smear is a screening test designed to aid in the detection of premalignant and malignant conditions of the uterine cervix. It is not a diagnostic procedure and should not be used as the sole means of detecting cervical cancer. Both false-positive and false-negative reports do occur. . Performed at: WB Performed By: #### D RUGRPD #### [facility] [address] [place] [address] Dr. Colette Worthington Performed by: Comment Normal [facility] Comment on above: Result Comment: Terrell Olson, Contaminated Land Consultant (ASCP) Performed at: WB Performed By: #### D RUGRPD #### [facility] [address] [place] [address] Dr. Colette Worthington QC reviewed by: Comment Normal [facility] Comment on above: Result Comment: Michoacano Jennings, Contaminated Land Consultant (ASCP) Performed at: WB Performed By: #### D RUGRPD #### [facility] [address] [address] [address] Colette Worthington Specimen adequacy: Comment Normal [facility] Comment on above: Result Comment: Sati sfactory for evaluation. No endocervical component is identified. Performed at: WB Performed By: #### D RUGRPD #### [facility] [address] [place] [address] Dr. Colette Worthington PAP ACOG PANEL 2: 30 to 65on 09-18-2022 . . Normal [facility] Comment on above: Result Comment: Perf ormed at: WB Performed By: #### [id number] #### [facility] [address] [place] [address] Dr. Colette Worthington Age Gdln ACOG Testing 30-65 [facility] Comment on above: Performed By: #### [id number] #### [facility] [address] [place] [address] Dr. Colette Worthington DIAGNOSIS: Comment Normal [facility] Comment on above: Result Comment: NEGA TIVE FOR INTRAEPITHELIAL LESION OR MALIGNANCY. PREDOMINANCE OF COCCOBACILLI CONSISTENT WITH SHIFT IN VAGINAL DERRELL IS PRESENT. Performed at: WB Performed By: #### [id number] #### [facility] [address] [place] [address] Dr. Colette Worthington HPV Aptima Negative Normal Negative [facility] Comment on above: Result Comment: This nucleic acid amplification test detects fourteen high-risk HPV types (16,18,31,33,35,39,45,51,52,56,58,59,66,68) without differentiation. Performed at: =G Performed By: #### [id number] #### [facility] [address] [place] [address] Dr. Colette Worthington HPV Genotype Reflex Comment Normal [facility] Comment on above: Result Comment: Crit eria not met, HPV Genotype not performed. Performed at: WB Performed By: #### [id number] #### [facility] [address] [place] [address] Dr. Colette Worthington Methodology: Comment Normal [facility] Comment on above: Result Comment: This liquid based ThinPrep(R) pap test was screened with the use of an image guided system. Performed at: WB Performed By: #### [id number] #### [facility] [address] [place] [address] Dr. oClette Worthington Note: Comment Normal [facility] Comment on above: Result Comment: The Pap smear is a screening test designed to aid in the detection of premalignant and malignant conditions of the uterine cervix. It is not a diagnostic procedure and should not be used as the sole means of detecting cervical cancer. Both false-positive and false-negative reports do occur. . Performed at: WB Performed By: #### [id number] #### [facility] [address] [place] [address] Dr. Colette Worthington Performed by: Comment Normal [facility] Comment on above: Result Comment: Heather Romero Contaminated Land Consultant (ASCP) Performed at: WB Performed By: #### [id number] #### [facility] [address] [place] [address] Dr. Colette Worthington Specimen adequacy: Comment Normal [facility] Comment on above: Result Comment: Sati sfactory for evaluation. Endocervical and/or squamous metaplastic cells (endocervical component) are present. Performed at: WB Performed By: #### [id number] #### [facility] [address] [place] [address] Dr. Colette Worthington US PELVIS AND TRANSVAGon US PELVIS AND TRANSVAG EXAMINATION: US PELVIS AND TRANSVAG HISTORY: Pelvic and perineal pain , infertility COMPARISON: Ultrasound pelvis 06/24/2020 TECHNIQUE: Transabdominal and transvaginal sonographic examination. FINDINGS: UTERUS: According to uterus with 2.7 x 1.9 x 3.3 cm heterogeneous area within leftward myometrium suspected represent a leiomyoma. Uterus size: 15.0 x 5.3 x 6.2 cm ENDOMETRIUM: Normal homogeneous appearance. Endometrial thickness: Right horn: 10 mm; left horn: 7 mm RIGHT OVARY: Normal size and appearance. Blood flow present within ovary on color Doppler. Ovary size: 5.5 x 2.6 x 2.9 cm LEFT OVARY: Normal size and appearance. Blood flow present within ovary on color Doppler. Ovary size: 3.8 x 2.4 x 2.9 cm CUL-DE-SAC: Unremarkable. No significant free fluid. BLADDER: Unremarkable. OTHER: None. IMPRESSION: 1. Slightly limited examination. 2. Bicornuate uterus with normal-appearing endometrium bilaterally. A leiomyoma suspected within left uterine horn myometrium. Electronically authenticated by: ALY WHITE Date: 2022-09-17 08:18 Normal [facility] XR pre/post mri xrayon 01-16 XR pre/post mri xray [facility] [place] [address] [place] [address] MRI Report Signed Patient: Kristie Holliday MR#: [id number] : 1990 Acct:[id number] Age/Sex: 28 / F ADM Date: 01/16/19 Loc: [facility] Room: Type: [facility] Attending Dr: Aníbal Jovel DO Ordering Provider: Vijay Jovel DO Date of Service: 01/16/19 MR/MR cervical spine wo con: HYPERREFLEXIA CERVICAL MYELOPATHY ([id number]) XR/XR pre/post mri xray: R29.2 G95.9 CERVICAL SPINE Copies to: Vijay Jovel DO MR cervical spine wo con, XR pre/post mri xray 01/16/2019 10:13 AM SIGNS AND SYMPTOMS: Increasing neck pain with pain and numbness in right hand PROTOCOL: Lateral and bilateral oblique radiographs of the cervical spine. MR images of the cervical spine including sagittal T2, sagittal T1, sagittal STIR, axial T2 gradient, and axial T1 COMPARISON: None. FINDINGS: Radiographs of the cervical spine: There is straightening and mild reversal of the normal cervical lordosis with the apex of the C5 vertebral body. There is moderate disc height loss at C5-C6 with anterior osteophyte formation and uncovertebral joint spurring. This contributes to bony foraminal narrowing, greatest on the right. There is no fracture or subluxation. MRI cervical spine: Disc height loss and alignment are as noted above. This preservation of vertebral body heights. The marrow signal is within normal limits. The cord is normal in signal. No epidural or paraspinous fluid collection is appreciated. The visualized paraspinous soft tissues are within normal limits. The prevertebral soft tissues are within normal limits. At C2-C3: There is a normal disc, central canal, and neural foramen. At C3-C4: There is a normal disc, central canal, and neural foramen. At C4-C5: There is a normal disc, central canal, and neural foramen. At C5-C6: There is a central disc extrusion with mild caudal migration. There is also right-sided uncovertebral joint spurring. There is moderate right neural foraminal narrowing with moderate to severe narrowing of the spinal canal. There is mass effect on the anterior aspect of the cord without evidence of cord signal abnormality. At C6-C7: There is a normal disc, central canal, and neural foramen. At C7-T1: There is a normal disc, central canal, and neural foramen. MR/MR cervical spine wo con IMPRESSION: At C5-C6: There is a central disc extrusion with mild caudal migration. There is also right-sided uncovertebral joint spurring. There is moderate right neural foraminal narrowing with moderate to severe narrowing of the spinal canal. There is mass effect on the anterior aspect of the cord without evidence of cord signal abnormality. There is straightening and reversal of the normal cervical lordosis with the apex at C5. No evidence of fracture or subluxation. Impression dictated by: Darrick Caballero M.D.01/16/2019 12:16 PM Dictation Location: [place] [address] Transcribed By: [facility] 01/16/19 1216 Dictated By: Darrick Caballero II, MD 01/16/19 1213 Signed By: 01/16/19 1216 Normal [facility] XR pre/post mri xrayon 12-19 XR pre/post mri xray [facility] [place] [address] [place] [address] MRI Report Signed Patient: Kristie Holliday MR#: [id number] : 1990 Acct:[id number] Age/Sex: 28 / F ADM Date: 12/19/18 Loc: [facility] Room: Type: [facility] Attending Dr: Aníbal Jovel DO Ordering Provider: Vijay Jovel DO Date of Service: 12/19/18 MR/MR lumbar spine wo con: M54.5 ([id number]) MR/MR thoracic spine wo con: M54.5 ([id number]) XR/XR pre/post mri xray: LUMBAR PRES and thoracic pres Copies to: Vijay Jovel DO MR lumbar spine wo con, MR thoracic spine wo con, XR pre/post mri xray 12/19/2018 11:02 AM SIGNS AND SYMPTOMS: Severe low back pain radiating to the bilateral thighs, leg weakness, hyperreflexia PROTOCOL: Frontal and lateral radiographs of the thoracic and lumbar spine. MR images of the thoracic and lumbar spine including sagittal T2, sagittal STIR, sagittal T1, axial T2, and axial T1 COMPARISON: None. FINDINGS: Thoracic and lumbar radiographs: Incidental note is a central disc protrusion contributing to at least moderate spinal canal stenosis with mild mass effect on the anterior aspect of the cord at the level of the C5-C6 intervertebral disc. There is a mild levoconvex curvature of the thoracic spine. The bones are in anatomic alignment. This preservation of vertebral body heights and intervertebral discs. The bones of the lumbar spine are in anatomic alignment with straightening of the normal lumbar lordosis. There is preservation of vertebral body heights and intervertebral discs. There is no fracture or subluxation. Sacroiliac joints are preserved. MRI thoracic spine: The bones of the thoracic spine are in anatomic alignment. There is preservation of vertebral body heights and intervertebral disc spaces. The marrow signal is within normal limits. No epidural or paraspinous fluid collection is appreciated. The visualized paraspinous soft tissues are within normal limits. At T1-T2: There is a normal disc, central canal, and neural foramen. At T2-T3: There is a normal disc, central canal, and neural foramen. At T3-T4: There is a normal disc, central canal, and neural foramen. At T4-T5: There is a normal disc, central canal, and neural foramen. At T5-T6: There is a normal disc, central canal, and neural foramen. At T6-T7: There is a normal disc, central canal, and neural foramen. At T7-T8: There is a normal disc, central canal, and neural foramen. At T8-T9: There is a normal disc, central canal, and neural foramen. At T9-T10: There is a normal disc, central canal, and neural foramen. At T10-T11: There is a normal disc, central canal, and neural foramen. At T11-T12: There is a normal disc, central canal, and neural foramen. At T12-L1: There is a normal disc, central canal, and neural foramen. MR/MR lumbar spine wo con IMPRESSION: Incidental note is made of a central disc protrusion which is likely partly visualized at C5-C6 level contributing to moderate spinal canal narrowing and mass effect on the anterior aspect of the cord. Further interrogation with cervical spine MRI may be helpful if clinically indicated. MRI lumbar spine: FINDINGS: The bones of the lumbar spine are in anatomic alignment. There is preservation of vertebral body heights. There is disc desiccation and moderate disc height loss at L4-L5 and L5- S1. The marrow signal is within normal limits. The conus terminates at the superior endplate of the L2 vertebral body level. No epidural or paraspinous fluid collection is appreciated. At T12-L1: There is a normal disc, central canal, and neural foramen. At L1-L2: There is a normal disc, central canal, and neural foramen. At L2-L3: There is a normal disc, central canal, and neural foramen. At L3-L4: There is a normal disc, central canal, and neural foramen. At L4-L5: There is a broad-based disc bulge with facet degenerative changes contributing to mild spinal canal stenosis with mild bilateral neural foraminal narrowing. There are facet effusions bilaterally. At L5-S1: There is a focal central disc extrusion causing moderate spinal canal stenosis with mild mass effect on the traversing S1 nerve roots. There is mild to moderate left and mild right neural foraminal narrowing. IMPRESSION: At L5-S1: There is a focal central disc extrusion causing moderate spinal canal stenosis with mild mass effect on the traversing S1 nerve roots. There is mild to moderate left and mild right neural foraminal narrowing. At L4-L5: There is a broad-based disc bulge with facet degenerative changes contributing to mild spinal canal stenosis with mild bilateral neural foraminal narrowing. There are facet effusions bilaterally. Impression dictated by: Darrick Caballero M.D.12/19/2018 1:44 PM Dictation Location: [facility] Transcribed By: [facility] 12/19/18 9670 Dictated By: Darrick Caballero II, MD 12/19/18 1325 Signed By: 12/19/18 1342 Normal [facility] Specimen Rejectionon 018 Reason for rejection NOT SENT IN NANCY TUBE Normal [facility] Comment on above: Performed By: #### EZEQUIEL PETIT, UMMERRILLO ####[address] [place] [address] Source of sample BLOOD Normal [facility] Comment on above: Performed By: #### U EZEQUIEL MORA, UMMERRILLO ####[place] [address] [place] [address] Test ordered APOR Normal [facility] Comment on above: Performed By: #### EZEQUIEL PETIT, UMMERRILLO ####[address] [place] [address] CBC with Diffon 05-30-2018 Abs. Basophil 0.00 k/uL Normal 0.0-0.2 [facility] Comment on above: Performed By: #### EZEQUIEL PETIT, UMICAO ####[address] [place] [address] Abs.Neutrophil (Seg) 5.30 k/uL Normal 1.3-9.1 [facility] Comment on above: Performed By: #### U EZEQUIEL MORA, UMICAO ####[address] [place] [address] Basophils/100 WBC Auto (Bld) 0 % Normal 0-2 [facility] Comment on above: Performed By: #### U EZEQUIEL MORA, UMICAO ####[address] [place] [address] Eosinophils Auto #/vol (Bld) 0.00 10*3/uL Normal 0.0-0.4 [facility] Comment on above: Performed By: #### U CORINA MORACG, UMICAO ####[facility] [place] [address] Eosinophils/100 WBC Auto (Bld) 1 % Normal 0-4 [facility] Comment on above: Performed By: #### U AX, UHCG, UMICAO ####[facility] [place] [address] Erythrocyte distribution width Auto Ratio (RBC) 13.4 % Normal 11.5-14.9 [facility] Comment on above: Performed By: #### U AX, UHCG, UMICAO ####[address] [facility] [place] [address] Hematocrit Auto Volume Fraction (Bld) 37.8 % Normal 36-46 [facility] Comment on above: Performed By: #### U AX, UHCG, UMICAO ####[address] [facility] [place] [address] Hemoglobin mass conc (Bld) 12.8 g/dL Normal 12.0-16.0 [facility] Comment on above: Performed By: #### U AX, UHCG, UMICAO ####[address] [place] [address] Lymphocytes Auto #/vol (Bld) 2.20 10*3/uL Normal 1.0-4.8 [facility] Comment on above: Performed By: #### U AX, UHCG, UMICAO ####[facility] [place] [address] Lymphocytes/100 WBC Auto (Bld) 27 % Normal 24-44 [facility] Comment on above: Performed By: #### U AX, UHCG, UMICAO ####[place] [address] [place] [address] MCH Auto Entitic mass (RBC) 29.9 pg Normal 26-34 [facility] Comment on above: Performed By: #### U AXCORINACG, UMICAO ####[address] [place] [address] MCHC Auto mass conc (RBC) 33.9 g/dL Normal 31-37 [facility] Comment on above: Performed By: #### U AX UHCG, UMICAO ####[facility] [place] [address] MCV Auto Entitic volume (RBC) 88.3 fL Normal 80-100 [facility] Comment on above: Performed By: #### U AX UHCG, UMICAO ####[address] [address] Monocytes Auto #/vol (Bld) 0.50 10*3/uL Normal 0.1-1.3 [facility] Comment on above: Performed By: #### U AXCORINACG, UMICAO ####[facility] [place] [address] Monocytes/100 WBC Auto (Bld) 6 % Normal 1-7 [facility] Comment on above: Performed By: #### U AX, UHCG, UMICAO ####[address] [address] Neutrophil (Seg) 66 % Normal 36-66 [facility] Comment on above: Performed By: #### U AX, UHCG, UMICAO ####[address] [address] Platelet mean volume Auto Entitic volume (Bld) 9.9 fL Normal 6.0-12.0 [facility] Comment on above: Performed By: #### U AX, UHCG, UMICAO ####[facility] [facility] [place] [address] Platelets Auto #/vol (Bld) 182 10*3/uL Normal 150-450 [facility] Comment on above: Performed By: #### U AX, UHCG, UMICAO ####[facility] [place] [address].[place] [address] RBC Auto #/vol (Bld) 4.28 10*6/uL Normal 4.0-5.2 [facility] Comment on above: Performed By: #### U AX, UHCG, UMICAO ####[facility] [place] [address].[place] [address] WBC Auto #/vol (Bld) 8.0 10*3/uL Normal 3.5-11.0 [facility] Comment on above: Performed By: #### U AX, UHCG, UMICAO ####[facility] [place] [address].[place] [address] Abs.Imm.Granulocy te NOT REPORTED Normal 0.00-0.30 [facility] Comment on above: Performed By: #### U AX, UHCG, UMICAO ####[facility] [place] [address].[place] [address] Auto Diff Performed NOT REPORTED Normal [facility] Comment on above: Performed By: #### U AX, UHCG, UMICAO ####[facility] [facility] [place] [address] Immature granulocytes #/vol (Bld) NOT REPORTED Normal 0 [facility] Comment on above: Performed By: #### U AX, UHCG, UMICAO ####[facility] [place] [address].[place] [address] NRBC Automated NOT REPORTED Normal [facility] Comment on above: Performed By: #### U AX, UHCG, UMICAO ####[facility] [facility] [place] [address] Platelets Auto #/vol (Bld) NOT REPORTED Normal [facility] Comment on above: Performed By: #### U AX, UHCG, UMICAO ####[place] [address] [place] [address] RBC morphology finding Nom (Bld) NOT REPORTED Normal [facility] Comment on above: Performed By: #### U AX, UHCG, UMICAO ####[address] [address] WBC Morphology NOT REPORTED Normal [facility] Comment on above: Performed By: #### U AX, UHCG, UMICAO ####[address] [address] Comp Metabolic Pr/rfx MGon 0 05-30-2018 Potassium molar conc 3.5 mmol/L Low 3.7-5.3 [facility] Comment on above: Performed By: #### U AX, UHCG, UMICAO ####[address] [address] (cont.) Normal [facility] Comment on above: Result Comment: Aver age GFR for 20-29 years old: 116 mL/min/1.73sq mChronic Kidney Disease: <60 mL/min/1.73sq mKidney failure: <15 mL/min/1.73sq meGFR calculated using average adult body mass. Additional eGFR calculator available at:http://www.[employer].com/multiple_crcl_2012.htm Performed By: #### U AX, UHCG, UMICAO ####[address] [address] Albumin mass conc 3.3 g/dL Low 3.5-5.2 [facility] Comment on above: Performed By: #### U AX, UHCG, UMICAO ####[facility] [place] [address] Alkaline Phos 45 U/L Normal 35-104 [facility] Comment on above: Performed By: #### U AX, UHCG, UMICAO ####[facility] [place], [place] [address] [place] [address] ALT enzyme act/vol 17 U/L Normal 5-33 [facility] Comment on above: Performed By: #### U AX, UHCG, UMICAO ####[facility] [place] [address] Anion gap 3 molar conc 14 mmol/L Normal 9-17 [facility] Comment on above: Performed By: #### U AX, UHCG, UMICAO ####[facility] [place], [place] [address] [place] [address] AST enzyme act/vol 12 U/L Normal <32 [facility] Comment on above: Performed By: #### U AX, UHCG, UMICAO ####[facility] [place] [address] Bilirubin Ql (U) 0.29 mg/dL Low 0.3-1.2 [facility] Comment on above: Performed By: #### U AX, UHCG, UMICAO ####[facility] [place] [address] Calcium mass conc 8.3 mg/dL Low 8.6-10.4 [facility] Comment on above: Performed By: #### U AX, UHCG, UMICAO ####[facility] [place] [address] Chloride molar conc 105 mmol/L Normal 98-107 [facility] Comment on above: Performed By: #### U AX, UHCG, UMICAO ####[facility] [place] [address] CO2 molar conc 20 mmol/L Normal 20-31 [facility] Comment on above: Performed By: #### U AX, UHCG, UMICAO ####[facility] [place], [place] [address] [place] [address] Creatinine mass conc 0.57 mg/dL Normal 0.50-0.90 [facility] Comment on above: Performed By: #### U AX, UHCG, UMICAO ####[facility] [place] [address] GFR, Amer >60 Normal >60 [facility] Comment on above: Performed By: #### U AX, UHCG, UMICAO ####[facility] [place] [address].[place] [address] GFR,non Amer >60 Normal >60 [facility] Comment on above: Performed By: #### U AX, UHCG, UMICAO ####[facility] [place], [place] [address] [place] [address] Glucose mass conc 81 mg/dL Normal 70-99 [facility] Comment on above: Performed By: #### U AX, UHCG, UMICAO ####[facility] [place] [address] Protein mass conc 6.0 g/dL Low 6.4-8.3 [facility] Comment on above: Performed By: #### U AX, UHCG, UMICAO ####[facility] [place] [address] Sodium molar conc 139 mmol/L Normal 135-144 [facility] Comment on above: Performed By: #### U AX, UHCG, UMICAO ####[facility] [facility] [place] [address] Urea nitrogen mass conc 5 mg/dL Low 6-20 [facility] Comment on above: Performed By: #### U AX, UHCG, UMICAO ####[facility] [place] [address] Albumin/Globulin mass ratio NOT REPORTED Normal 1.0-2.5 [facility] Comment on above: Performed By: #### U AX, UHCG, UMICAO ####[facility] [place] [address] BUN/CRE Ratio NOT REPORTED Normal 9-20 [facility] Comment on above: Performed By: #### U AX, UHCG, UMICAO ####[facility] [place] [address] Staging: NOT REPORTED Normal [facility] Comment on above: Performed By: #### U AX, UHCG, UMICAO ####[facility] [place] [address] Magnesiumon 05-30-2018 Magnesium mass conc 1.8 mg/dL Normal 1.6-2.6 [facility] Comment on above: Performed By: #### U AX, UHCG, UMICAO ####[facility] [place] [address] CBC with Diffon 05-29-2018 Abs. Basophil 0.00 k/uL Normal 0.0-0.2 [facility] Comment on above: Performed By: #### U AX, UHCG, UMICAO ####[facility] [place] [address] Abs.Neutrophil (Seg) 4.10 k/uL Normal 1.3-9.1 [facility] Comment on above: Performed By: #### U EZEQUIEL MORA, SALAS ####[facility] [place] [address] Basophils/100 WBC Auto (Bld) 0 % Normal 0-2 [facility] Comment on above: Performed By: #### U EZEQUIEL MORA, UMICAO ####[facility] [place] [address] Eosinophils Auto #/vol (Bld) 0.10 10*3/uL Normal 0.0-0.4 [facility] Comment on above: Performed By: #### EZEQUIEL PETIT, SHERRYO ####[facility] [place] [address] Eosinophils/100 WBC Auto (Bld) 1 % Normal 0-4 [facility] Comment on above: Performed By: #### U EZEQUIEL MORA, SALAS ####[facility] [place] [address] Erythrocyte distribution width Auto Ratio (RBC) 13.6 % Normal 11.5-14.9 [facility] Comment on above: Performed By: #### U EZEQUIEL MORA, UMICATyrone ####[facility] [place] [address] Hematocrit Auto Volume Fraction (Bld) 37.1 % Normal 36-46 [facility] Comment on above: Performed By: #### U CORINA MORACSusana, SHERRYO ####[facility] [place] [address] Hemoglobin mass conc (Bld) 12.3 g/dL Normal 12.0-16.0 [facility] Comment on above: Performed By: #### U AX, UHCG, UMICAO ####[facility] [place] [address].[place] [address] Lymphocytes Auto #/vol (Bld) 2.70 10*3/uL Normal 1.0-4.8 [facility] Comment on above: Performed By: #### U AX, UHCG, UMICAO ####[address] [place] [address] Lymphocytes/100 WBC Auto (Bld) 36 % Normal 24-44 [facility] Comment on above: Performed By: #### U AX, UHCG, UMICAO ####[address] [address] MCH Auto Entitic mass (RBC) 29.3 pg Normal 26-34 [facility] Comment on above: Performed By: #### U AX, UHCG, UMICAO ####[address] [address] MCHC Auto mass conc (RBC) 33.3 g/dL Normal 31-37 [facility] Comment on above: Performed By: #### U AX, UHCG, UMICAO ####[address] [address] MCV Auto Entitic volume (RBC) 88.2 fL Normal 80-100 [facility] Comment on above: Performed By: #### U AX, UHCG, UMICAO ####[facility] [place] [address] Monocytes Auto #/vol (Bld) 0.60 10*3/uL Normal 0.1-1.3 [facility] Comment on above: Performed By: #### U AX, UHCG, UMICAO ####[address] [place] [address] Monocytes/100 WBC Auto (Bld) 8 % High 1-7 [facility] Comment on above: Performed By: #### U EZEQUIEL MORA, SHERRYO ####[facility] [place] [address] Neutrophil (Seg) 55 % Normal 36-66 [facility] Comment on above: Performed By: #### U CORINA MORACSusana, UMICAO ####[facility] [place] [address] Platelet mean volume Auto Entitic volume (Bld) 9.4 fL Normal 6.0-12.0 [facility] Comment on above: Performed By: #### U CORINA MORACSusana, UMMERRILLO ####[facility] [place] [address].[place] [address] Platelets Auto #/vol (Bld) 180 10*3/uL Normal 150-450 [facility] Comment on above: Performed By: #### U CORINA MORACSusana, UMMERRILLO ####[facility] [place] [address].[place] [address] RBC Auto #/vol (Bld) 4.21 10*6/uL Normal 4.0-5.2 [facility] Comment on above: Performed By: #### U AXCORINACG, UMICAO ####[facility] [place], [place] [address] [facility] [place] [address] WBC Auto #/vol (Bld) 7.5 10*3/uL Normal 3.5-11.0 [facility] Comment on above: Performed By: #### U AXCORINACG, UMICAO ####[facility] Rehabilitation[address] [place], [place] [address] [address] Abs.Imm.Granulocy te NOT REPORTED Normal 0.00-0.30 [facility] Comment on above: Performed By: #### U AX, UHCG, UMICAO ####[address] [address] Auto Diff Performed NOT REPORTED Normal [facility] Comment on above: Performed By: #### U AX, UHCG, UMICAO ####[address] [address] Immature granulocytes #/vol (Bld) NOT REPORTED Normal 0 [facility] Comment on above: Performed By: #### U AX, UHCG, UMICAO ####[address] [address] NRBC Automated NOT REPORTED Normal [facility] Comment on above: Performed By: #### U AX, UHCG, UMICAO ####[address] [address] Platelets Auto #/vol (Bld) NOT REPORTED Normal [facility] Comment on above: Performed By: #### U AX, UHCG, UMICAO ####[address] [address] RBC morphology finding Nom (Bld) NOT REPORTED Normal [facility] Comment on above: Performed By: #### U AX, UHCG, UMICAO ####[address] [address] WBC Morphology NOT REPORTED Normal [facility] Comment on above: Performed By: #### U AX, UHCG, UMICAO ####[address] [address] Comp Metabolic Pr/rfx MGon 0 05-29-2018 Potassium molar conc 3.5 mmol/L Low 3.7-5.3 [facility] Comment on above: Performed By: #### U AX, UHCG, UMICAO ####[facility] [facility] [place] [address] (cont.) Normal [facility] Comment on above: Result Comment: Aver age GFR for 20-29 years old: 116 mL/min/1.73sq mChronic Kidney Disease: <60 mL/min/1.73sq mKidney failure: <15 mL/min/1.73sq meGFR calculated using average adult body mass. Additional eGFR calculator available at:http://www.[employer]/multiple_crcl_2012.htm Performed By: #### EZEQUIEL PETIT, SHERRYO ####[facility] [facility] [place] [address] Albumin mass conc 3.4 g/dL Low 3.5-5.2 [facility] Comment on above: Performed By: #### EZEQUIEL PETIT, UMMERRILLO ####[facility] [facility] [place] [address] Alkaline Phos 45 U/L Normal 35-104 [facility] Comment on above: Performed By: #### CORINA PETITCG, UMICAO ####[facility] [facility] [place] [address] ALT enzyme act/vol 17 U/L Normal 5-33 [facility] Comment on above: Performed By: #### U AX UHCG, UMICAO ####[facility] [facility] [place] [address] Anion gap 3 molar conc 12 mmol/L Normal 9-17 [facility] Comment on above: Performed By: #### U AX, UHCG, UMICAO ####[facility] [facility] [place] [address] AST enzyme act/vol 14 U/L Normal <32 [facility] Comment on above: Performed By: #### U AX, UHCG, UMICAO ####[facility] [place] [address] Bilirubin Ql (U) 0.27 mg/dL Low 0.3-1.2 [facility] Comment on above: Performed By: #### U AX, UHCG, UMICAO ####[facility] [place] [address] Calcium mass conc 8.1 mg/dL Low 8.6-10.4 [facility] Comment on above: Performed By: #### U AX, UHCG, UMICAO ####[facility] [place] [address] Chloride molar conc 109 mmol/L High 98-107 [facility] Comment on above: Performed By: #### U AX, UHCG, UMICAO ####[facility] [place] [address] CO2 molar conc 21 mmol/L Normal 20-31 [facility] Comment on above: Performed By: #### U AX, UHCG, UMICAO ####[facility] [place] [address] Creatinine mass conc 0.59 mg/dL Normal 0.50-0.90 [facility] Comment on above: Performed By: #### U AX, UHCG, UMICAO ####[facility] [place] [address] GFR, Amer >60 Normal >60 [facility] Comment on above: Performed By: #### U AX, UHCG, UMICAO ####[facility] [place] [address] GFR,non Amer >60 Normal >60 [facility] Comment on above: Performed By: #### U AX, UHCG, UMICAO ####[facility] [facility] [place] [address] Glucose mass conc 89 mg/dL Normal 70-99 [facility] Comment on above: Performed By: #### U AX, UHCG, UMICAO ####[facility] [facility] [place] [address] Protein mass conc 5.7 g/dL Low 6.4-8.3 [facility] Comment on above: Performed By: #### U AX, UHCG, UMICAO ####[facility] [place] [address] Sodium molar conc 142 mmol/L Normal 135-144 [facility] Comment on above: Performed By: #### U AX, UHCG, UMICAO ####[facility] [place] [address] Urea nitrogen mass conc 5 mg/dL Low 6-20 [facility] Comment on above: Performed By: #### U AX, UHCG, UMICAO ####[facility] [facility] [place] [address] Albumin/Globulin mass ratio NOT REPORTED Normal 1.0-2.5 [facility] Comment on above: Performed By: #### U AX, UHCG, UMICAO ####[facility] [place] [address] BUN/CRE Ratio NOT REPORTED Normal 9-20 [facility] Comment on above: Performed By: #### U AX, UHCG, UMICAO ####[facility] [facility] [address] Staging: NOT REPORTED Normal [facility] Comment on above: Performed By: #### U AX, HARPERG, SHERRYO ####[address] [facility] [place] [address] Magnesiumon 05-29-2018 Magnesium mass conc 1.8 mg/dL Normal 1.6-2.6 [facility] Comment on above: Performed By: #### U MORGAN, HARPERG, SHERRYO ####[address] [place] [address] Specimen Rejectionon 018 ----- NOT REPORTED Normal [facility] Comment on above: Performed By: #### Ed MORA, EZEQUIEL, SHERRYO ####[address] [place] [address] CBC with Diffon 05-28-2018 Abs. Basophil 0.00 k/uL Normal 0.0-0.2 [facility] Comment on above: Performed By: #### C DP, CMPX, MG ####[address] [address] Abs.Neutrophil (Seg) 4.30 k/uL Normal 1.3-9.1 [facility] Comment on above: Performed By: #### C DP, CMPX, MG ####[address] [place] [address] Basophils/100 WBC Auto (Bld) 0 % Normal 0-2 [facility] Comment on above: Performed By: #### C DP, CMPX, MG ####[address] [facility] [place] [address] Eosinophils Auto #/vol (Bld) 0.10 10*3/uL Normal 0.0-0.4 [facility] Comment on above: Performed By: #### C DP, CMPX, MG ####[address] [place] [address] Eosinophils/100 WBC Auto (Bld) 1 % Normal 0-4 [facility] Comment on above: Performed By: #### C DP, CMPX, MG ####[facility] [place] [address] Erythrocyte distribution width Auto Ratio (RBC) 13.9 % Normal 11.5-14.9 [facility] Comment on above: Performed By: #### C DP, CMPX, MG ####[facility] [place] [address] Hematocrit Auto Volume Fraction (Bld) 37.1 % Normal 36-46 [facility] Comment on above: Performed By: #### C DP, CMPX, MG ####[place] [address] [place] [address] Hemoglobin mass conc (Bld) 12.4 g/dL Normal 12.0-16.0 [facility] Comment on above: Performed By: #### C DP, CMPX, MG ####[facility] [facility] [place] [address] Lymphocytes Auto #/vol (Bld) 3.00 10*3/uL Normal 1.0-4.8 [facility] Comment on above: Performed By: #### C DP, CMPX, MG ####[place] [address] [place] [address] Lymphocytes/100 WBC Auto (Bld) 38 % Normal 24-44 [facility] Comment on above: Performed By: #### C DP, CMPX, MG ####[place] [address] [place] [address] MCH Auto Entitic mass (RBC) 29.4 pg Normal 26-34 [facility] Comment on above: Performed By: #### C DP, CMPX, MG ####[place] [address] [place] [address] MCHC Auto mass conc (RBC) 33.5 g/dL Normal 31-37 [facility] Comment on above: Performed By: #### C DP, CMPX, MG ####[address] [address] MCV Auto Entitic volume (RBC) 87.9 fL Normal 80-100 [facility] Comment on above: Performed By: #### C DP, CMPX, MG ####[address] [address] Monocytes Auto #/vol (Bld) 0.60 10*3/uL Normal 0.1-1.3 [facility] Comment on above: Performed By: #### C DP, CMPX, MG ####[address] [address] Monocytes/100 WBC Auto (Bld) 8 % High 1-7 [facility] Comment on above: Performed By: #### C DP, CMPX, MG ####[address] [address] Neutrophil (Seg) 53 % Normal 36-66 [facility] Comment on above: Performed By: #### C DP, CMPX, MG ####[address] [address] Platelet mean volume Auto Entitic volume (Bld) 9.3 fL Normal 6.0-12.0 [facility] Comment on above: Performed By: #### C DP, CMPX, MG ####[address] [address] Platelets Auto #/vol (Bld) 178 10*3/uL Normal 150-450 [facility] Comment on above: Performed By: #### C DP, CMPX, MG ####[address] [address] RBC Auto #/vol (Bld) 4.22 10*6/uL Normal 4.0-5.2 [facility] Comment on above: Performed By: #### C DP, CMPX, MG ####[address] [address] WBC Auto #/vol (Bld) 8.0 10*3/uL Normal 3.5-11.0 [facility] Comment on above: Performed By: #### C DP, CMPX, MG ####[address] [address] Abs.Imm.Granulocy te NOT REPORTED Normal 0.00-0.30 [facility] Comment on above: Performed By: #### C DP, CMPX, MG ####[address] [address] Auto Diff Performed NOT REPORTED Normal [facility] Comment on above: Performed By: #### C DP, CMPX, MG ####[address] [address] Immature granulocytes #/vol (Bld) NOT REPORTED Normal 0 [facility] Comment on above: Performed By: #### C DP, CMPX, MG ####[address] [address] NRBC Automated NOT REPORTED Normal [facility] Comment on above: Performed By: #### C DP, CMPX, MG ####[address] [address] Platelets Auto #/vol (Bld) NOT REPORTED Normal [facility] Comment on above: Performed By: #### C DP, CMPX, MG ####[facility] [address] [address] RBC morphology finding Nom (Bld) NOT REPORTED Normal [facility] Comment on above: Performed By: #### C DP, CMPX, MG ####[address] [address] WBC Morphology NOT REPORTED Normal [facility] Comment on above: Performed By: #### C DP, CMPX, MG ####[address] [address] Comp Metabolic Pr/rfx MGon 0 05-28-2018 (cont.) Normal [facility] Comment on above: Result Comment: Aver age GFR for 20-29 years old: 116 mL/min/1.73sq mChronic Kidney Disease: <60 mL/min/1.73sq mKidney failure: <15 mL/min/1.73sq meGFR calculated using average adult body mass. Additional eGFR calculator available at:http://www.[employer].Intern/multiple_crcl_2012.htm Performed By: #### C DP, CMPX, MG ####[address] [address] Albumin mass conc 3.5 g/dL Normal 3.5-5.2 [facility] Comment on above: Performed By: #### C DP, CMPX, MG ####[address] [address] Alkaline Phos 46 U/L Normal 35-104 [facility] Comment on above: Performed By: #### C DP, CMPX, MG ####[address] [address] ALT enzyme act/vol 17 U/L Normal 5-33 [facility] Comment on above: Performed By: #### C DP, CMPX, MG ####[address] [place] [address] Anion gap 3 molar conc 11 mmol/L Normal 9-17 [facility] Comment on above: Performed By: #### C DP, CMPX, MG ####[address] [facility] [place] [address] AST enzyme act/vol 17 U/L Normal <32 [facility] Comment on above: Performed By: #### C DP, CMPX, MG ####[address] [place] [address] Bilirubin Ql (U) 0.34 mg/dL Normal 0.3-1.2 [facility] Comment on above: Performed By: #### C DP, CMPX, MG ####[address] [address] Calcium mass conc 8.2 mg/dL Low 8.6-10.4 [facility] Comment on above: Performed By: #### C DP, CMPX, MG ####[address] [address] Chloride molar conc 106 mmol/L Normal 98-107 [facility] Comment on above: Performed By: #### C DP, CMPX, MG ####[address] [place] [address] CO2 molar conc 23 mmol/L Normal 20-31 [facility] Comment on above: Performed By: #### C DP, CMPX, MG ####[address] [place] [address] Creatinine mass conc 0.70 mg/dL Normal 0.50-0.90 [facility] Comment on above: Performed By: #### C DP, CMPX, MG ####[address] [facility] [place] [address] GFR, Amer >60 Normal >60 [facility] Comment on above: Performed By: #### C DP, CMPX, MG ####[facility] [place] [address].[place] [address] GFR,non Amer >60 Normal >60 [facility] Comment on above: Performed By: #### C DP, CMPX, MG ####[facility] [place] [address].[place] [address] Glucose mass conc 89 mg/dL Normal 70-99 [facility] Comment on above: Performed By: #### C DP, CMPX, MG ####[facility] [place] [address] Potassium molar conc 3.4 mmol/L Low 3.7-5.3 [facility] Comment on above: Performed By: #### C DP, CMPX, MG ####[facility] [place] [address].[place] [address] Protein mass conc 5.8 g/dL Low 6.4-8.3 [facility] Comment on above: Performed By: #### C DP, CMPX, MG ####[facility] [place] [address].[place] [address] Sodium molar conc 140 mmol/L Normal 135-144 [facility] Comment on above: Performed By: #### C DP, CMPX, MG ####[facility] [place] [address].[place] [address] Urea nitrogen mass conc 7 mg/dL Normal 6-20 [facility] Comment on above: Performed By: #### C DP, CMPX, MG ####[facility] [place] [address] Albumin/Globulin mass ratio NOT REPORTED Normal 1.0-2.5 [facility] Comment on above: Performed By: #### C DP, CMPX, MG ####[facility] [place] [address] BUN/CRE Ratio NOT REPORTED Normal 06-16 [facility] Comment on above: Performed By: #### C DP, CMPX, MG ####[address] [address] Staging: NOT REPORTED Normal [facility] Comment on above: Performed By: #### C DP, CMPX, MG ####[address] [address] Cult,Urine,CCon 05-28-2018 Cult,Urine,CC Specimen Description .CLEAN CATCH URINE Special Requests NOT REPORTED Culture NO GROWTH Report Status FINAL 05/28/2018 Normal [facility] Comment on above: Performed By: #### U AX, UHCG, UMICAO ####[address] [address] Magnesiumon 05-28-2018 Magnesium mass conc 1.9 mg/dL Normal 1.6-2.6 [facility] Comment on above: Performed By: #### U AX, UHCG, UMICAO ####[address] [address] CBC with Diffon 05-27-2018 Abs. Basophil 0.00 k/uL Normal 0.0-0.2 [facility] Comment on above: Performed By: #### C DP, CP, LIP ####[address] [address] Abs.Neutrophil (Seg) 4.50 k/uL Normal 1.3-9.1 [facility] Comment on above: Performed By: #### C DP, CP, LIP ####[address] [address] Basophils/100 WBC Auto (Bld) 1 % Normal 0-2 [facility] Comment on above: Performed By: #### C DP, CP, LIP ####[facility] [place] [address] Eosinophils Auto #/vol (Bld) 0.00 10*3/uL Normal 0.0-0.4 [facility] Comment on above: Performed By: #### C DP, CP, LIP ####[facility] [place] [address] Eosinophils/100 WBC Auto (Bld) 1 % Normal 0-4 [facility] Comment on above: Performed By: #### C DP, CP, LIP ####[place] [address] [place] [address] Erythrocyte distribution width Auto Ratio (RBC) 13.6 % Normal 11.5-14.9 [facility] Comment on above: Performed By: #### C DP, CP, LIP ####[facility] [place] [address] Hematocrit Auto Volume Fraction (Bld) 41.9 % Normal 36-46 [facility] Comment on above: Performed By: #### C DP, CP, LIP ####[facility] [place] [address] Hemoglobin mass conc (Bld) 13.8 g/dL Normal 12.0-16.0 [facility] Comment on above: Performed By: #### C DP, CP, LIP ####[place] [address] [place] [address] Lymphocytes Auto #/vol (Bld) 2.10 10*3/uL Normal 1.0-4.8 [facility] Comment on above: Performed By: #### C DP, CP, LIP ####[place] [address] [facility] [place] [address] Lymphocytes/100 WBC Auto (Bld) 29 % Normal 24-44 [facility] Comment on above: Performed By: #### C DP, CP, LIP ####[address] [place] [address] MCH Auto Entitic mass (RBC) 28.9 pg Normal 26-34 [facility] Comment on above: Performed By: #### C DP, CP, LIP ####[address] [address] MCHC Auto mass conc (RBC) 33.0 g/dL Normal 31-37 [facility] Comment on above: Performed By: #### C DP, CP, LIP ####[address] [address] MCV Auto Entitic volume (RBC) 87.6 fL Normal 80-100 [facility] Comment on above: Performed By: #### C DP, CP, LIP ####[address] [address] Monocytes Auto #/vol (Bld) 0.60 10*3/uL Normal 0.1-1.3 [facility] Comment on above: Performed By: #### C DP, CP, LIP ####[address] [address] Monocytes/100 WBC Auto (Bld) 9 % High 1-7 [facility] Comment on above: Performed By: #### C DP, CP, LIP ####[address] [address] Neutrophil (Seg) 60 % Normal 36-66 [facility] Comment on above: Performed By: #### C DP, CP, LIP ####[address] [place] [address] Platelet mean volume Auto Entitic volume (Bld) 9.9 fL Normal 6.0-12.0 [facility] Comment on above: Performed By: #### C DP, CP, LIP ####[address] [address] Platelets Auto #/vol (Bld) 234 10*3/uL Normal 150-450 [facility] Comment on above: Performed By: #### C DP, CP, LIP ####[address] [address] RBC Auto #/vol (Bld) 4.78 10*6/uL Normal 4.0-5.2 [facility] Comment on above: Performed By: #### C DP, CP, LIP ####[address] [address] WBC Auto #/vol (Bld) 7.3 10*3/uL Normal 3.5-11.0 [facility] Comment on above: Performed By: #### C DP, CP, LIP ####[address] [address] Abs.Imm.Granulocy te NOT REPORTED Normal 0.00-0.30 [facility] Comment on above: Performed By: #### C DP, CP, LIP ####[address] [address] Auto Diff Performed NOT REPORTED Normal [facility] Comment on above: Performed By: #### C DP, CP, LIP ####[address] [address] Immature granulocytes #/vol (Bld) NOT REPORTED Normal 0 [facility] Comment on above: Performed By: #### C DP, CP, LIP ####[address] [address] NRBC Automated NOT REPORTED Normal [facility] Comment on above: Performed By: #### C DP, CP, LIP ####[address] [address] Platelets Auto #/vol (Bld) NOT REPORTED Normal [facility] Comment on above: Performed By: #### C DP, CP, LIP ####[address] [address] RBC morphology finding Nom (Bld) NOT REPORTED Normal [facility] Comment on above: Performed By: #### C DP, CP, LIP ####[address] [address] WBC Morphology NOT REPORTED Normal [facility] Comment on above: Performed By: #### C DP, CP, LIP ####[address] [address] Comp Metabolic Profon 2017 (cont.) Normal [facility] Comment on above: Result Comment: Aver age GFR for 20-29 years old: 116 mL/min/1.73sq mChronic Kidney Disease: <60 mL/min/1.73sq mKidney failure: <15 mL/min/1.73sq meGFR calculated using average adult body mass. Additional eGFR calculator available at:http://www.[employer].Intern/multiple_crcl_2012.htm Performed By: #### C DP, CP, LIP ####[address] [address] Albumin mass conc 4.2 g/dL Normal 3.5-5.2 [facility] Comment on above: Performed By: #### C DP, CP, LIP ####[address] [address] Alkaline Phos 62 U/L Normal 35-104 [facility] Comment on above: Performed By: #### C DP, CP, LIP ####[facility] [place], [place] [address] [address] ALT enzyme act/vol 19 U/L Normal 5-33 [facility] Comment on above: Performed By: #### C DP, CP, LIP ####[facility] [place] [address].[place] [address] Anion gap 3 molar conc 19 mmol/L High 9-17 [facility] Comment on above: Performed By: #### C DP, CP, LIP ####[facility] [place], [place] [address] [address] AST enzyme act/vol 21 U/L Normal <32 [facility] Comment on above: Performed By: #### C DP, CP, LIP ####[facility] [place] [address] Bilirubin Ql (U) 0.48 mg/dL Normal 0.3-1.2 [facility] Comment on above: Performed By: #### C DP, CP, LIP ####[facility] [place] [address] Calcium mass conc 9.2 mg/dL Normal 8.6-10.4 [facility] Comment on above: Performed By: #### C DP, CP, LIP ####[facility] [place], [place] [address] [place] [address] Chloride molar conc 101 mmol/L Normal 98-107 [facility] Comment on above: Performed By: #### C DP, CP, LIP ####[address] [place] [address] CO2 molar conc 20 mmol/L Normal 20-31 [facility] Comment on above: Performed By: #### C DP, CP, LIP ####[facility] [facility] [place] [address] Creatinine mass conc 0.68 mg/dL Normal 0.50-0.90 [facility] Comment on above: Performed By: #### C DP, CP, LIP ####[address] [facility] [place] [address] GFR, Amer >60 Normal >60 [facility] Comment on above: Performed By: #### C DP, CP, LIP ####[address] [place] [address] GFR,non Amer >60 Normal >60 [facility] Comment on above: Performed By: #### C DP, CP, LIP ####[address] [place] [address] Glucose mass conc 97 mg/dL Normal 70-99 [facility] Comment on above: Performed By: #### C DP, CP, LIP ####[address] [address] Potassium molar conc 3.3 mmol/L Low 3.7-5.3 [facility] [facility] Comment on above: Performed By: #### C DP, CP, LIP ####[address] [place] [address] Protein mass conc 7.7 g/dL Normal 6.4-8.3 [facility] Comment on above: Performed By: #### C DP, CP, LIP ####[address] [address] Sodium molar conc 140 mmol/L Normal 135-144 [facility] Comment on above: Performed By: #### C DP, CP, LIP ####[facility] [address] Urea nitrogen mass conc 9 mg/dL Normal 6-20 [facility] Comment on above: Performed By: #### C DP, CP, LIP ####[address] [address] Albumin/Globulin mass ratio NOT REPORTED Normal 1.0-2.5 [facility] Comment on above: Performed By: #### C DP, CP, LIP ####[address] [address] BUN/CRE Ratio NOT REPORTED Normal 9-20 [facility] Comment on above: Performed By: #### C DP, CP, LIP ####[address] [address] Staging: NOT REPORTED Normal [facility] Comment on above: Performed By: #### C DP, CP, LIP ####[address] [address] Drug Scr, Abuse, Uron 2017 Amphetamine(s),Ur Negative Normal NEG [facility] Comment on above: Result Comment: (Pos itive cutoff 1000 ng/mL) Performed By: #### D AU ####[address] [address] Barbiturate(s),Ur Negative Normal NEG [facility] Comment on above: Result Comment: (Pos itive cutoff 200 ng/mL) Performed By: #### D AU ####[address] [address] Base excess Calculated molar conc (Bld) Negative Normal NEG [facility] Comment on above: Result Comment: (Pos itive cutoff 300 ng/mL) Performed By: #### D AU ####[address] [address] Benzodiazepine(s) Negative Normal NEG [facility] Comment on above: Result Comment: (Pos itive cutoff 200 ng/mL) Performed By: #### D AU ####[address] [address] Cannabinoid(s),Ur Positive Abnormal NEG [facility] Comment on above: Result Comment: (Pos itive cutoff 50 ng/mL) Performed By: #### D AU ####[address] [address] Interpretive Info Assay provides medic al screening only. The absence of expected drug(s) and/or Normal [facility] Comment on above: Result Comment: meta bolite(s) may indicate diluted or adulterated urine, limitations of testing or timing of collection.Testing for legal purposes should be confirmed by another method. To request confirmation of test result, please call the lab within 7 days of sample submission. Performed By: #### D AU ####[address] [address] Methadone Ql (U) Negative Normal NEG [facility] Comment on above: Result Comment: (Pos itive cutoff 300 ng/mL) Performed By: #### D AU ####[address] [address] Opiate(s), Ur Negative Normal NEG [facility] Comment on above: Result Comment: (Pos itive cutoff 300 ng/mL) Performed By: #### D AU ####[address] [address] Oxycodone, Urine Negative Normal NEG [facility] Comment on above: Result Comment: (Pos itive cutoff 100 ng/mL) Performed By: #### D AU ####[address] [address] Phencyclidine, Ur Negative Normal NEG [facility] Comment on above: Result Comment: (Pos itive cutoff 25 ng/mL) Performed By: #### D AU ####[address] [address] Buprenorphrine, Ur NOT REPORTED Normal NEG [facility] Comment on above: Performed By: #### D AU ####[address] [address] MDMA, Urine NOT REPORTED Normal NEG [facility] Comment on above: Performed By: #### D AU ####[address] [address] Methamphetamine, Ur NOT REPORTED Normal NEG [facility] Comment on above: Performed By: #### D AU ####[address] [address] Propoxyphene,Urin e NOT REPORTED Normal NEG [facility] Comment on above: Performed By: #### D AU ####[address] [address] Tricyclic antidepressants Screen Ql (U) NOT REPORTED Normal NEG [facility] Comment on above: Performed By: #### D AU ####[address] [address] HCG, ,Urineon 05-27 HCG.beta subunit ( test) Ql (U) Negative Normal NEG [facility] Comment on above: Result Comment: Spec imens with hCG levels near the threshold of the test (25 mIU/mL) may give a negative or indeterminate result. In such cases, another test should be performed with a new specimen in 48-72 hours. If early is suspected clinically in this setting, correlation with quantitative serum b-hCG level is suggested. Performed By: #### U AX, CG, UMICAO ####[address] [address] Lipaseon 05-27-2018 Lipase enzyme act/vol 17 U/L Normal 13-60 [facility] Comment on above: Performed By: #### C DP, CP, LIP ####[address] [address] UA w/Reflex Cultureon 2017 Acetoacetic Acid,Ur SMALL Abnormal NEG [facility] Comment on above: Performed By: #### U AX, UHCG, UMICAO ####[address] [address] Bilirubin, SemiQt,Ur Presumptive positive. Unable to confirm due to unavailability of reagent. Abnormal NEG [facility] Comment on above: Performed By: #### U AX, UHCG, UMICAO ####[address] [address] Color DARK YELLOW Abnormal YEL [facility] Comment on above: Performed By: #### U AX, UHCG, UMICAO ####[address] [address] Glucose,Semi-qnt, Ur Negative Normal NEG [facility] Comment on above: Performed By: #### U AX, UHCG, UMICAO ####[address] [address] Hemoglobin, Ur TRACE Abnormal NEG [facility] Comment on above: Performed By: #### U AX, UHCG, UMICAO ####[address] [address] Leuckocyte Esterase SMALL Abnormal NEG [facility] Comment on above: Performed By: #### U AX, UHCG, UMICAO ####[address] [address] Nitrite,Ur Negative Normal NEG [facility] Comment on above: Performed By: #### U AX, UHCG, UMICAO ####[facility] [place] [address].[place] [address] PH,Ur 5.5 Normal 5.0-8.0 [facility] Comment on above: Performed By: #### U AX, UHCG, UMICAO ####[facility] [place] [address] Protein, Semi-qnt,Ur 1+ Abnormal NEG [facility] Comment on above: Performed By: #### U AX, UHCG, UMICAO ####[facility] [place] [address] Spec. Axson,Ur 1.029 Normal 1.000-1.03 0 [facility] Comment on above: Performed By: #### U AX, UHCG, UMICAO ####[facility] [place] [address] Turbidity CLOUDY Abnormal CLEAR [facility] Comment on above: Performed By: #### U AX, UHCG, UMICAO ####[facility] [place] [address] Urobilinogen,Ur Normal Normal NORM [facility] Comment on above: Performed By: #### U AX, UHCG, UMICAO ####[facility] [place] [address] Comment NOT REPORTED Normal [facility] Comment on above: Performed By: #### U AX, UHCG, UMICAO ####[facility] [place] [address] Urinalysis,Microon 8 ----- Normal [facility] Comment on above: Performed By: #### U AX, UHCG, UMICAO ####[address] [address] Bacteria FEW Abnormal NONE [facility] Comment on above: Performed By: #### U AX, UHCG, UMICAO ####[address] [address] Epithelial cells 10 TO 20 Normal [facility] Comment on above: Performed By: #### U AX, UHCG, UMICAO ####[address] [address] Mucus Strands 1+ Abnormal [facility] Comment on above: Performed By: #### U AX, UHCG, UMICAO ####[address] [address] RBC Test strip #/vol (U) 2 TO 5 Normal [facility] Comment on above: Performed By: #### U AX, UHCG, UMICAO ####[address] [address] Urine WBC's 5 TO 10 Normal [facility] Comment on above: Performed By: #### U AX, UHCG, UMICAO ####[address] [address] Amorphous Sediment NOT REPORTED Normal [facility] Comment on above: Performed By: #### U AX, UHCG, UMICAO ####[address] [address] Casts NOT REPORTED Normal [facility] Comment on above: Performed By: #### U AX, UHCG, UMICAO ####[address] [place] [address] Crystals NOT REPORTED Normal NONE [facility] Comment on above: Performed By: #### U AX, UHCG, UMICAO ####[facility] [facility] [place] [address] Epithelial, Renal NOT REPORTED Normal 0 [facility] Comment on above: Performed By: #### U AX, UHCG, UMICAO ####[address] [address] Other Observations NOT REPORTED Normal NREQ [facility] Comment on above: Performed By: #### U AX, UHCG, UMICAO ####[address] [place] [address] Trichomonas NOT REPORTED Normal NONE [facility] Comment on above: Performed By: #### U AX, UHCG, UMICAO ####[facility] [place] [address] [place] [address] Yeast NOT REPORTED Normal NONE [facility] Comment on above: Performed By: #### U AX, UHCG, UMICAO ####[facility] [place] [address] [place] [address] XR ABDOMEN (2 VIEWS)on 05-27 XR ABDOMEN (2 VIEWS) EXAMINATION:TWO XRAY VIEWS OF THE ABDOMEN05/27/2018 5:29 pmCOMPARISON:None.HISTORY:ORD ERING SYSTEM PROVIDED HISTORY: abdo pain with nausea and vomiting, stateshx of intussusceptionTECHNOLOGIST PROVIDED HISTORY:abdo pain with nausea and vomiting, states hx of intussusceptionOrdering Physician Provided Reason for Exam: abd pain with nausea and vomitingAcuity: UnknownType of Exam: UnknownFINDINGS:Mild nonspecific distention of small bowel loops within the midabdomen andleft side of the abdomen.No increased stool burden.No abnormal calcifications.IMPRESSION: Nonspecific bowel gas pattern.Mild nonspecific dilatation of loops of small bowel.Interpreted by:JAMARCUS Artigned by:Adelso Bravo MD05/27/18inal result Normal [facility] Vital Signs Date Time Vital Sign Value Performing Clinician Facility 02-05-2023 12:41-0400 Body weight 100.[address] EUGENE RAMON . [facility] Comment on above: Performed By: #### A FPMAT #### [facility] [address] [place] [address] Dr. Colette Worthington 01-08-2023 15:25-0400 Body temperature 99.3 [degF] Farrha Sinha MD Work Phone: [facility] 01-08-2023 15:25-0400 Diastolic blood pressure 91 mm[Hg] Farrah Sinha MD Work Phone: [facility] 01-08-2023 15:25-0400 Heart rate 90 /min Farrah Sinha MD Work Phone: [facility] 01-08-2023 15:25-0400 Respiratory rate 18 /min Farrah Sinha MD Work Phone: [facility] 01-08-2023 15:25-0400 SaO2% (BldA) [Mass fraction] 99 % Farrah Sinha MD Work Phone: [facility] 01-08-2023 15:25-0400 Systolic blood pressure 121 mm[Hg] Farrah Sinha MD Work Phone: [facility] 01-07-2023 12:40-0400 Body height 162.6 cm Farrah Sinha MD Work Phone: [facility] 01-07-2023 12:40-0400 Body mass index (BMI) [Ratio] 37.46 kg/m2 Farrah Sinha MD Work Phone: [facility] 01-07-2023 12:40-0400 Body weight 99 kg Farrah Sinha MD Work Phone: [facility] Encounters Encounter Date Encounter Type Care Provider Facility Start: 10-18-2024 End: 10-18-2024 Bamboo flowsheet Tricia RESTREPO Work Phone: [facility] Start: 10-18-2024 End: 10-18-2024 Bamboo flowsheet Tricia RESTREPO Work Phone: [facility] Start: 06-28-2024 End: 06-28-2024 Emergency department patient visit [facility] Start: 06-09-2024 End: 06-11-2024 Evaluation and management of inpatient [facility] Start: 10-05-2023 End: 10-05-2023 ambulatory TRICIA SIFUENTES Not Available Start: 01-27-2023 End: 01-28-[address] EUGENE RAMON . Facility:[facility] Start: 01-07-2023 End: 01-08-2023 Evaluation and management of inpatient MARY Alexis ARMIDA [facility] Start: 01-07-2023 End: 01-08-2023 Evaluation and management of inpatient Farrah Sinha MD Work Phone: [address] Onc/Med Surg Start: 01-05-2023 End: 01-07-[address] EUGENE RAMON . Facility:[facility] Start: 01-05-2023 End: 01-05-[address] MADDIE CARTER . Facility:[facility] Start: 12-16-2022 End: 12-17-[address] EUGENE RAMON . Facility:[facility] Start: 11-16-2022 End: 11-17-[address] EUGENE RAMON . Facility:[facility] Start: 11-16-2022 End: 11-17-[address] EUGENE RAMON . Facility:[facility] Start: 10-28-2022 End: 10-29-[address] EUGENE RAMON . Facility:[facility] Start: 10-12-2022 End: 10-13-[address] EUGENE RAMON . Facility:[facility] Start: 10-06-2022 End: 10-07-[address] EUGENE RAMON . Facility:[facility] Start: 09-16-2022 End: 09-17-[address] EUGENE RAMON . Facility:[facility] Start: 09-10-2022 End: 09-10-[address] EUGENE RAMON . Facility:[facility] Start: 03-23-2022 ambulatory [facility] Facility: Start: 05-27-2018 End: 05-30-2018 Patient encounter ADRYAN HUFFMAN [facility] Start: 04-05-2018 End: 04-05-2018 Patient encounter WISSAOctavio BLEIBEL [facility] Procedures Date Procedure Procedure Detail Performing Clinician Start: 10-05-2023 Microscopic observation [Identifier] in Cervix by Cyto stain Tricia RESTREPO Work Phone: Start: 01-08-2023 End: 05-26-2023 H/O: section Previous delivery, antepartum condition or complication Farrah Sinha MD Work Phone: Start: 01-08-2023 Alpha-fetoprotein serum Farrah Sinha MD Work Phone: Start: 01-08-2023 Comprehensive metabolic panel Farrah Sinha MD Work Phone: Start: 01-07-2023 Ct abdomen & pelvis w/contrast material Elizabeth Enciso MD Work Phone: Start: 01-07-2023 Assay of lactate Elizabeth Enciso MD Work Phone: Start: 01-07-2023 End: 01-07-2023 Culture bacterial quanttative colony count urine Elizabeth Enciso MD Work Phone: Start: 01-07-2023 Comprehensive metabolic panel Elizabeth Enciso MD Work Phone: Start: 05-30-2018 DISCHARGE PATIENT WISSAM BLEIBEL Start: 05-30-2018 INITIATE OXYGEN THERAPY PROTOCOL WISSAM BLEIBEL Start: 05-30-2018 Assay of magnesium WISSAM BLEIBEL Start: 05-30-2018 Blood count complete auto&auto difrntl wbc WISSAM BLEIBEL Start: 05-29-2018 INITIATE OXYGEN THERAPY PROTOCOL WISSAM BLEIBEL Start: 05-29-2018 DIET DENTAL SOFT WISSAM BLEIBEL Start: 05-29-2018 Assay of magnesium WISSAM BLEIBEL Start: 05-29-2018 Blood count complete auto&auto difrntl wbc WISSAM BLEIBEL Start: 05-29-2018 PORPHYRIN, TOTAL WISSAM BLEIBEL Start: 05-28-2018 DIETARY NUTRITION SUPPLEMENTS WISSAM BLEIBEL Start: 05-28-2018 INITIATE OXYGEN THERAPY PROTOCOL WISSAM BLEIBEL Start: 05-28-2018 Assay of magnesium WISSAM BLEIBEL Start: 05-28-2018 Blood count complete auto&auto difrntl wbc WISSAM BLEIBEL Start: 05-27-2018 Radiologic exam abdomen 2 views WISSAM BLEIBEL Start: 05-27-2018 ICE CHIPS WISSAM BLEIBEL Start: 05-27-2018 FULL CODE WISSAM BLEIBEL Start: 05-27-2018 INITIATE OXYGEN THERAPY PROTOCOL WISSAM BLEIBEL Start: 05-27-2018 IP CONSULT TO GI WISSAM BLEIBEL Start: 05-27-2018 NOTIFY PHYSICIAN (SPECIFY) WISSAM BLEIBEL Start: 05-27-2018 PLACE INTERMITTENT PNEUMATIC COMPRESSION DEVICE WISSAM BLEIBEL Start: 05-27-2018 TOBACCO CESSATION EDUCATION WISSAM BLEIBEL Start: 05-27-2018 VITAL SIGNS WISSAM BLEIBEL Start: 05-27-2018 PATIENT STATUS (FROM ED OR OR/PROCEDURAL) WISSAM BLEIBEL Start: 05-27-2018 IP CONSULT TO INTERNAL MEDICINE WISSAM BLEIBEL Start: 05-27-2018 Assay of lipase WISSAM BLEIBEL Start: 05-27-2018 Blood count complete auto&auto difrntl wbc WISSAM BLEIBEL Start: 05-27-2018 Comprehensive metabolic panel WISSAM BLEIBEL Start: 05-27-2018 ICTOTEST, URINE WISSAM BLEIBEL Start: 05-27-2018 Microscopic urinalysis WISSAM BLEIBEL Start: 05-27-2018 URINE CULTURE CLEAN CATCH WISSAM BLEIBEL Start: 05-27-2018 URINE DRUG SCREEN WISSAM BLEIBEL Start: 05-27-2018 Urine test visual color cmprsn meths WISSAM BLEIBEL Start: 05-27-2018 URINE RT REFLEX TO CULTURE WISSAM BLEIBEL Start: 04-05-2018 DISCHARGE PATIENT WISSAM BLEIBEL Start: 07-10-2018 POCT HCG, , UR WISSAM BLEIBEL Start: 04-05-2018 BEDREST MARIOSAM BLEIBEL Start: 04-05-2018 Continuous pulse oximetry MARIOSAM BLEIBEL Start: 04-05-2018 ENCOURAGE DEEP BREATHING AND COUGHING WISSAM BLEIBEL Start: 04-05-2018 INITIATE OXYGEN THERAPY PROTOCOL MARIOSAM BLEIBEL Start: 04-05-2018 NOTIFY PHYSICIAN (SPECIFY) MARIOSAM BLEIBEL Start: 04-05-2018 NURSING COMMUNICATION WISSAM BLEIBEL Start: 04-05-2018 VITAL SIGNS WISSAM BLEIBEL Start: 04-05-2018 INSERT PERIPHERAL IV WISSAM BLEIBEL H/O: section Previous c esarean delivery, antepartum condition or complication Farrah Sinha MD Work Phone: Plan of Treatment Date Care Activity Detail Author Start: 09-09-2027 Screening for malign ant neoplasm of cervix [facility] Start: 10-05-2026 Screening for malign ant neoplasm of cervix Pap Smear [facility] Start: 10-18-2024 End: 10-18-2024 Patient encounter procedure 10/18/2024 11:00 AM EST Office Visit [facility] [address] [place] [id number] Tricia Sifuentes PA [address] [place], [place] [id number] Arrived [facility] Comment on above: Arrived Start: 05-28-2024 Influenza vaccination Influenza Vacc ine (#1) [facility] Start: 04-27-2023 Influenza vaccination Flu vacc ine (Season Ended) [facility] Start: 01-29-2023 End: 01-29-2023 Patient encounter procedure 01/29/2023 Routine Perinatology [facility] Start: 2019 Screening for malign ant neoplasm of cervix [facility] Start: 2010 Screening for malign ant neoplasm of cervix Pap smear [facility] Start: 2008 DTaP/Tdap/Td vaccine (1 - Tdap) DTaP/Tdap/Td vaccine (1 - Tdap) [facility] Start: 2007 Hepatitis C screening Hepatitis C sc reen [facility] Start: 2004 HIV screening HIV screen [facility] Start: 2001 Depression Screen Depression Screen [facility] Start: 1995 Pneumococcal 0-64 ye ars Vaccine (1 - PCV) Pneumococcal 0-64 years Vaccine (1 - PCV) [facility] Start: 1990 Varicella vaccine (1 of 2 - 2-dose childhood series) Varicella vaccine (1 of 2 - 2-dose childhood series) [facility] Start: 01-12-1990 COVID-19 Vaccine (#1) COVID-19 Vacci ne (#1) [facility] Alpha Fetoprotein, Maternal Alpha Fetoprotein, Maternal Lab Routine 01/08/2023 10:53 AM EDT [facility] Phone: End: 01-10-2023 CBC W Auto Differential panel - Blood CBC with Auto Differential Lab Routine Daily for 3 Occurrences starting 01/08/2023 until 01/10/2023, 1 completed [facility] Phone: Comment on above: Daily for 3 Occurren guicho starting 01/08/2023 until 01/10/2023, 1 completed End: 01-10-2023 Comprehensive metabolic 2000 panel - Serum or Plasma Comprehensive Metabolic Panel Lab Routine Daily for 3 Occurrences starting 01/08/2023 until 01/10/2023, 1 completed [facility] Phone: Comment on above: Daily for 3 Occurren guicho starting 01/08/2023 until 01/10/2023, 1 completed Intermittent pulse oximetry Pulse Oximetry Spot Check Respiratory Care Routine Daily until discontinued starting 01/08/2023 [facility] Phone: Comment on above: Daily until disconti nued starting 01/08/2023 End: 01-08-2023 MISCELLANEOUS TESTING [facility] Phone: Comment on above: Once for 1 Occurrenc es starting 01/08/2023 until 01/08/2023 Oxygen therapy [[facility] Data Set] Initiate Oxygen Therapy Protocol Respiratory Care Routine Daily until discontinued starting 01/07/2023 LULI MARQUEZ [employer] Phone: Comment on above: Daily until disconti nued starting 01/07/2023 Payers Date Payer Category Payer Medicaid (Managed Care) [facility] MEDICAID [id number] 1989 Unknown [id number] [id number]. 593 1989 Unknown [id number] 2.16.840.1.078815.3.579.2. 593 1989 Unknown [id number] 2.16.840.1.255476.3.579.2. 593 1989 Unknown [id number] 2.16.840.1.687452.3.579.2. 593 1989 Unknown [id number] 2.16.840.1.306454.3.579.2. 593 1989 Unknown [id number] 2.16.840.1.536544.3.579.2. 593 1989 Unknown [id number] 2.16.840.1.034526.3.579.2. 593 1989 Unknown [id number] 2.16.840.1.227759.3.579.2. 593 1989 Unknown [id number] 2.16.840.1.776778.3.579.2. 593 1989 Unknown [id number] 2.16.840.1.939647.3.579.2. 593 1989 Unknown [id number] 2.16.840.1.696230.3.579.2. 593 1989 Unknown [id number] 2.16.840.1.698112.3.579.2. 593 1989 Unknown [id number] 2.16.840.1.324159.3.579.2. 593 1989 Unknown [id number] 2.16.840.1.063874.3.579.2. 175 1989 Unknown [id number] 2.16.840.1.500222.3.579.2. 1259 1989 Unknown [id number] 2.16.840.1.057448.3.579.2. 1286 1989 Unknown [id number] 2.16.840.1.045850.3.579.2. 1286 1959 Unknown [id number] Social History Date Type Detail Facility Start: 05-27-2018 End: 03-13-2023 Tobacco smoking status SDIS Smokes tobacco daily [facility] History of tobacco use Cigarette Smoker [facility] Phone: Start: 05-27-2018 End: 10-05-2023 Cigarettes smoked current (pack per day) - Reported 0.3 [facility] Phone: Start: 05-27-2018 Tobacco use and exposure Smokeless tobacco non-user [facility] Phone: Start: 01-07-2023 End: 10-05-2023 Alcohol intake Current drinker of alcohol (finding) [facility] Phone: Start: 05-27-2018 Tobacco Comment declines nicotine patch [facility] Phone: Start: 01-27-2018 Alcohol Comment social [facility] Phone: Start: 09-10-2022 [facility] Phone: Start: 1990 Sex Assigned At Not on file [facility] Phone: Start: 12-28-2022 End: 01-07-2023 Exposure to SARS-CoV-2 (event) Not sure [facility] Start: 09-29-2023 End: 10-05-2023 Alcohol Use Disorder Identification Test - Consumption [AUDIT-C] [facility] Frequency of Alcohol Consumption Not on file [facility] How often do you hav e 6 or more drinks on 1 occasion? Never [facility] Start: 03-13-2023 Alcohol Comment Caffeine intake: 1-2 cups per day coffee, soda/pop [facility] Hospital course Narrative 01-08-2023 Марина Humphries RN - 01/08/2023 5:20 PM EDT Note Date & Type Note Facility 01-08-2023 Hospital course Narrative Discussed with the patient and all questioned fully answered. She will call me if any problems arise. IV removed without any complications. Pt walked downstairs to be transported home by mother and daughter. Pt verbalized understanding of discharge instructions. documented in this encounter [facility] Phone: History of Present illness Narrative 01-08-2023 Ricky Hughes MD - 01/08/2023 10:00 AM EDTBdionna Mead DO - 01/08/2023 7:06 AM EDT Note Date & Type Note Facility 01-08-2023 History of Present illness Narrative Maternal Medicine Ultrasound Interval Note Kristie Holliday is a 32 y.o. female at 19w1d Ultrasound discussed with Dr. Ingram. [facility] Sono Report (Verbal): IUP presents in R uterus. Cephalic presentation. FHT 153. movement present. EFW 9 oz. Fundal placenta. L uterus with complex hematoma. Plan: Bicornuate uterus. Return to [facility] for formal anatomy scan as scheduled. Please refer to report for further details. Dr. Mead updated, OB Residents updated, RN updated. Patient also has opted for maternal genetic carrier screening. Ricky Hughes MD OBGYN Resident, PGY1 [facility] 01/08/2023, 10:01 AM Images from the original note were not included. CIRCUIT COURT CLERK PROGRESS NOTE Kristie Holliday is a 32 y.o. female at 19w1d, admitted for abdominal pain, nausea, vomiting, constipation. Hospital Day: 2 Subjective: Patient has been seen and examined. Patient is resting comfortably in bed, complaining of minimal abdominal pain, much improved from yesterday. Pt ranks pain 2/10 at this time and denies need for any pain medication at this time. Denies nausea, vomiting. Pt reports she had BM x2 overnight, diarrhea. Patient denies any vaginal discharge and any urinary complaints.The patient reports movement is present, denies contractions, denies loss of fluid, denies vaginal bleeding. Patient denies headache, vision changes, nausea, vomiting, fever, chills, shortness of breath, chest pain, RUQ pain, abdominal pain, change in color/amount/odor of vaginal discharge, dysuria or, hematuria. Objective: Vitals: Vitals: 01/07/23 1911 01/07/23 1958 01/08/23 0139 01/08/23 0400 BP: 110/61 103/64 101/65 Pulse: 70 78 76 Resp: 17 17 17 Temp: 98.7 F (37.1 C) 98.8 F (37.1 C) 98 F (36.7 C) TempSrc: Oral Oral Oral SpO2: 95% 97% 97% Weight: Height: Physical Exam: General appearance: no apparent distress, alert, and cooperative HEENT: head atraumatic, normocephalic, moist mucous membranes, trachea midline Neurologic: alert, oriented, normal speech, no focal findings or movement disorder noted Lungs: no increased work of breathing Heart: regular rate Abdomen: soft, gravid, non-tender, no rebound, guarding, or rigidity, no RUQ or epigastric tenderness, no signs or symptoms of abruption, and no signs or symptoms of chorioamnionitis Extremities: no calf tenderness, no edematous Musculoskeletal: Gross strength equal and intact throughout, no gross abnormalities Psychiatric: Mood appropriate, normal affect Assessment/Plan: Kristie Holliday is a 32 y.o. female at 19w1d IUP Admitted for Abdominal pain, nausea, vomiting, constipation - Rh positive/ Rubella immune/ GBS unknown - Pen G for GBS prophylaxis if necessary - VSS - Continue PNV, SCDs daily - FHT 154 yesterday on admission - Patient to present to [facility] for inpatient Anatomy US this AM for surveillance Abdominal Pain, Nausea, Vomiting - Pt reports improved pain, rates pain /10 today - Denies nausea/vomiting - BM x2 overnight, reports diarrhea - Leukocytosis resolved, WBC 11.3 today - Repeat labs overall remarkable other than mild hypokalemia, replacement ordered - CT abdomen/pelvis 01/07: Appendix is normal. No obstructive uropathy. 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 There is 7 x 8 cm cystic lesion arising from the left superior fundal segment of the uterus near the placental insertion site. Differential possibilities for this lesion includes necrotic fibroid and possible hematoma cavity near the placental insertion site. For further evaluation dedicated ultrasound examination can be obtained. - General surgery consulted, appreciate recommendations this AM - D/c Doris at this time 2/2 improved pain - Tylenol/Flexeril/Gabapentin - MoM/Senna for constipation - Zofran/Reglan/Phenergan PRN - Advance diet this AM - Patient's symptoms have mostly resolved, patient is afebrile, leukocytosis resolved. Patient is now having more regular BM. Will appreciate general surgery thoughts this AM. Abdominal pain most likely 2/2 constipation which has resolved. Stable for discharge later today from an abdominal pain standpoint. Constipation - Resolved, BM x2 overnight - Continue MoM and Senna-S today - Lengthy discussion with patient on use of Miralax daily at home on discharge and being discharged with Senna-S Rx. Discussed new at-home bowel regimen. Pt voiced understanding. 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 Differential possibilities for this lesion includes necrotic fibroid and possible hematoma cavity near the placental insertion site. - Ultrasound with MFM scheduled this AM - CT findings likely non-contributory to acute abdominal pain as it is most likely a chronic finding. Recommend continued assessment with OBGYN outpatient Elv BP x1 - Normotensive overnight - Pt does not meet criteria for hypertensive disorder of BMI 37 Patient Active Problem List Diagnosis Date Noted Abdominal pain affecting 01/07/2023 Mild malnutrition (HCC) 05/28/2018 Abdominal pain 05/27/2018 Cyclical vomiting with nausea Marijuana abuse GERD (gastroesophageal reflux disease) 01/27/2018 Epigastric pain 01/27/[address] Mead. Ricky Hughes MD Retail Presentation Specialist Resident 01/08/2023, 7:07 AM Attending Physician Statement I have discussed the care of Kristie Holliday, including pertinent history and exam findings, with the resident. I have reviewed the colvin elements of all parts of the encounter with the resident. I agree with the assessment, plan and orders as documented by the resident. (GC Modifier) Electronically signed by Kyaw Mead DO 01/08/2023 3:43 PM Reviewed benign workup to now. Constipation N/V better. Reviewed hydration and bowel regimen outpatient. Reviewed follow up. documented in this encounter [facility] Phone: Evaluation note Note Date & Type Note Facility Evaluation note Diagnosis Abdominal pain- Primary Abdominal pain, unspecified site Abdominal pain affecting Didelphic uterus in , second trimester Obesity affecting in second trimester Previous delivery, antepartum condition or complication Encounter for routine screening for malformation using ultrasonics Abdominal pain during in second trimester Other constipation 19 weeks gestation of state, incidental documented in this encounter [facility] Phone: Hospital Discharge instructions Attachments Note Date & Type Note Facility Hospital Discharge instructions The following attachments cannot be sent through Care Everywhere.Constipation (Nauruan) Labor (Nauruan)documented in this encounter [facility] Phone: Summary Purpose Family History No Family History Records FoundNo Family History Records FoundNo Family History Records FoundNo Family History Records FoundNo Family History Records FoundNo Family History Records Found Advance Directives Latest Code Status on File Code Status Date Activated Date Inactivated Comments Full Code 01/07/2023 2:29 PM Code Status History Code Status Date Activated Date Inactivated Comments Full Code 05/27/2018 2:40 PM 05/30/2018 2:06 PM Additional Source Comments INFORMATION SOURCE (unrecogn ized section and content) DATE CREATED AUTHOR 06/23/2018 [facility] DATE CREATED AUTHOR AUTHOR'S ORGANIZ ATION 07/09/2019 [facility] DATE CREATED AUTHOR AUTHOR'S ORGANIZ ATION 02/06/2023 [facility] DATE CREATED AUTHOR AUTHOR'S ORGANIZ ATION 03/13/2023 [facility] DATE CREATED AUTHOR AUTHOR'S ORGANIZ ATION 10/06/2023 [facility] EPIC DATE CREATED AUTHOR AUTHOR'S ORGANIZ ATION 06/29/2024 [facility] Reason for Visit (unrecogniz ed section and content) Reason Comments Abdominal Pain Sent from [facility] or abdominal pain and constipation. Is 19 weeks having issues of bowel movements Specialty Diagnoses / Procedures Referred By Contdestiny t Referred To Contact Diagnoses Abdominal pain Abdominal pain affecting diffuse abd pain Farrah Sinha MD [address] [place] [address] [facility] [address] [place] [address] Referral ID Status Reason Start Date Expiration Date Visits Re quested Visits Authorized [id number] 1 1 Ordered Prescriptions (unrec ognized section and content) Prescription Sig Dispensed Refills Start Date End Da te magnesium hydroxide (MILK OF MAGNESIA) 400 MG/5ML suspension Take 30 mLs by mouth daily as needed for Constipation 900 mL 0 01/08/2023 02/07/2023 metroNIDAZOLE (FLAGYL) 500 MG tablet Take 1 tablet by mouth 2 times daily for 5 days 10 tablet 0 01/08/2023 01/13/2023 acetaminophen (TYLENOL) 500 MG tablet Take 2 tablets by mouth every 6 hours as needed for Pain 30 tablet 1 01/08/2023 sennosides-docusate sodium (SENOKOT-S) 8.6-50 MG tablet Take 1 tablet by mouth in the morning and at bedtime 60 tablet 0 01/08/2023 Scheduled Active and Recently Administ ered Medications (unrecognized section and content) Medication Order 01/06/2023 01/07/2023 01/08/2023 aluminum & magnesium hydroxide-simethicone (MAALOX) 200-200-20 MG/5ML suspension 30 mL (COMPLETED) 30 mL, Oral, ONCE, 1 dose, On Anahi 01/07/23 at 1800 1843 (Given - Provider: Марина Humphries RN) famotidine (PEPCID) 20 mg in sodium chloride (PF) 0.9 % 10 mL injection 20 mg, IntraVENous, 2 times daily, First dose (after last modification) on Anahi 01/07/23 at 1800, Until Discontinued, IV Push over minimum of 2 minutes - Dilute with 10 mL NS 184 (Given - Provider: Марина Humphries RN) 1007 (Given - Provider: Марина Humphries RN)2100 (Due) gabapentin (NEURONTIN) capsule 300 mg 300 mg, Oral, 3 TIMES DAILY, First dose on Anahi 01/07/23 at 1800, Until Discontinued 184 (Given - Provider: Марина Humphries RN) 1008 (Given - Provider: Марина Humphries RN - Comment: pt in maternal medicine)1432 (Not Given - Provider: Марина Humphries RN - Reason: Other)2100 (Due) HYDROmorphone (DILAUDID) injection 1 mg (COMPLETED) 1 mg, IntraVENous, ONCE, 1 dose, On Anahi 01/07/23 at 1500, If oral and IV narcotics ordered, use oral first and only use IV if oral is ineffective or cannot take oral. Do Not give oral and IV within 1 hour of each other unless specifically ordered. 1456 (Given - Provider: Mynor Velazquez RN) lactated ringers bolus (COMPLETED) 1,000 mL, IntraVENous, at 983.6 mL/hr, Administer over 61 Minutes, ONCE, On Anahi 01/07/23 at 1445, For 1 dose 1500 (New Bag - Provider: Mynor Velazquez, PEG)1715 (Stopped - Provider: Mynor Velazquez RN) metoclopramide (REGLAN) injection 10 mg 10 mg, IntraVENous, EVERY 6 HOURS, First dose on Anahi 01/07/23 at 2000, Until Discontinued, IV Push: Max 10 mg over 1-2 minutes. 2051 (Given - Provider: Keily Painter RN) 014 (Given - Provider: Keily Painter RN)1007 (Given - Provider: Марина Humphries RN - Comment: pt in maternal medicine)1432 (Not Given - Provider: Марина Humphries RN - Reason: Loss of IV access)1999 (Due) metroNIDAZOLE (FLAGYL) tablet 500 mg 500 mg, Oral, 2 times daily, First dose (after last modification) on Anahi 01/07/23 at 2100, Until Discontinued, Antimicrobial Indications: Other, Other Abx Indication: BV 2051 (Given - Provider: Keily Painter RN) 100 (Given - Provider: Марина Humphries RN - Comment: pt in maternal medicine)2100 (Due) sennosides-docusate sodium (SENOKOT-S) 8.6-50 MG tablet 2 tablet 2 tablet, Oral, 2 TIMES DAILY, First dose on Anahi 01/07/23 at 1800, Until Discontinued 184 (Given - Provider: Марина Humphries RN) 1007 (Given - Provider: Марина Humphries RN)2100 (Due) Continuous Medication Order 01/06/2023 01/07/2023 01/08/2023 lactated ringers IV soln infusion IntraVENous, at 125 mL/hr, CONTINUOUS, Starting on Anahi 01/07/23 at 1615, Start once fluid bolus is completed 1725 (New Bag - Provider: Susie Alvarenga RN) PRN Medication Order 01/06/2023 01/07/2023 01/08/2023 0.9 % sodium chloride infusion 25 mL, IntraVENous, at 100 mL/hr, PRN, If patient receiving piggyback infusions without ordered maintenance IV fluids or with frequent/long duration piggyback infusions, Starting on Anahi 01/07/23 at 1414, Administer at the same rate as the piggyback being infused. acetaminophen (TYLENOL) tablet 1,000 mg 1,000 mg, Oral, EVERY 6 HOURS PRN, Starting on Anahi 01/07/23 at 1749, Until Discontinued, Pain Mild (1-3), Maximum dose of acetaminophen is 4000 mg from all sources in 24 hours. 2311 (Given - Provider: Keily Painter RN) cyclobenzaprine (FLEXERIL) tablet 10 mg 10 mg, Oral, 3 TIMES DAILY PRN, Starting on Wed01/07/23 at 1749, Until Discontinued, Muscle spasms 2052 (Given - Provider: Keily Painter RN) famotidine (PEPCID) 20 mg in sodium chloride (PF) 0.9 % 10 mL injection (CANCELED) 20 mg, IntraVENous, 2 TIMES DAILY PRN, Starting on Wed01/07/23 at 1426, Until Wed01/07/23 at 1747, acid reflux, IV Push over minimum of 2 minutes - Dilute with 10 mL NS 1500 (Given - Provider: Delbert Velazquez RN) iopamidol (ISOVUE-370) 76 % injection 75 mL (COMPLETED) 75 mL, IntraVENous, IMG ONCE PRN, 1 dose, Starting on Wed01/07/23 at 1538, Until Wed01/07/23 at 1539, Other 153 (Given - Provider: Aleja Montes De Oca - Comment: [id number] 07-21 isovue 370) LORazepam (ATIVAN) injection 0.5 mg 0.5 mg, IntraVENous, ONCE PRN, 1 dose, Starting on Wed01/07/23 at 1455, Until Wed01/08/23 at 1455, Anxiety, Irritation, Agitation magnesium hydroxide (MILK OF MAGNESIA) 400 MG/5ML suspension 30 mL 30 mL, Oral, DAILY PRN, Starting on Wed01/07/23 at 1935, Until Discontinued, Constipation 2304 (Given - Provider: Keily Painter RN) metoclopramide (REGLAN) injection 10 mg 10 mg, IntraVENous, EVERY 6 HOURS PRN, Starting on Wed01/07/23 at 1552, Until Discontinued, Heartburn, Nausea, IV Push: Max 10 mg over 1-2 minutes. ondansetron (ZOFRAN) injection 4 mg(Linked Group 1) 4 mg, IntraVENous, EVERY 6 HOURS PRN, Starting on Wed01/07/23 at 1414, Until Discontinued, Nausea, Vomiting, Administer if oral route cannot be used. 1456 (Given - Provider: Delbert n J Velazquez, RN) ondansetron (ZOFRAN-ODT) disintegrating tablet 4 mg(Linked Group 1) 4 mg, Oral, EVERY 8 HOURS PRN, Starting on Wed01/07/23 at 1414, Until Discontinued, Nausea, Vomiting 1456 (See Alternative - Provider: Mynor Velazquez, RN) oxyCODONE (ROXICODONE) immediate release tablet 10 mg (CANCELED) 10 mg, Oral, EVERY 4 HOURS PRN, Starting on Wed01/07/23 at 1748, Until Wed01/08/23 at 0753, Pain Severe (7-10) 1841 (Given - Provider: Carla Humphries RN) polyethylene glycol (GLYCOLAX) packet 17 g 17 g, Oral, DAILY PRN, Starting on Wed01/07/23 at 1745, Until Discontinued, Constipation, Stir and dissolve one packet of powder (17 g) in any 4 to 8 ounces of beverage (cold, hot or room temperature) then drink potassium bicarb-citric acid (EFFER-K) effervescent tablet 40 mEq(Linked Group 2) 40 mEq, Oral, PRN, Starting on Wed01/07/23 at 1736, Until Discontinued, Per Potassium Replacement Protocol, Administer as alternative if patient unable to tolerate oral tablet. K Lab Replacement Action 3.1 to 3.5 40 mEq ORAL x 1 Under 3.1 Refer to IV replacement protocol Recheck K level in AM. Protocol not for use in patients with CrCl less than 30 mL/min. Do not chew or crush. Dissolve flavored tablets completely in 3 to 4 ounces of cold water; unflavored tablets may be dissolved in 3 to 4 ounces of cold juice. Patient to sip slowly over a 5 to 10 minute period. May further dilute if GI adverse effects occur. potassium chloride (KLOR-CON M) extended release tablet 40 mEq(Linked Group 2) 40 mEq, Oral, PRN, Starting on Wed01/07/23 at 1736, Until Discontinued, Per Potassium Replacement Protocol, May give alternative linked oral order (ordered as effervescent, packet, or liquid solution) if patient unable to tolerate tablet. K Lab Replacement Action 3.1 to 3.5 40 mEq ORAL x 1 Under 3.1 Refer to IV replacement protocol Recheck K level in AM. Protocol not for use in patients with CrCl less than 30 mL/min. potassium chloride 10 mEq/100 mL IVPB (Peripheral Line)(Linked Group 2) 10 mEq, IntraVENous, PRN, Starting on Anahi 01/07/23 at 1736, Until Discontinued, at 100 mL/hr, Per Potassium Replacement Protocol, K Lab Replacement Action 2.7 to 3.0 10 mEq IVPB x 6 doses (60 mEq Total) Under 2.7 CALL PROVIDER and administer 10 mEq IVPB x 6 doses (60 mEq Total) Infuse at 10 mEq/hr. Repeat Potassium lab 1 hour after final administration. Protocol not for use in patients with CrCl less than 30 mL/min. promethazine (PHENERGAN) suppository 25 mg 25 mg, Rectal, EVERY 6 HOURS PRN, Starting on Anahi 01/07/23 at 1552, Until Discontinued, Nausea, if IV medications not working sodium chloride flush 0.9 % injection 5-40 mL 5-40 mL, IntraVENous, PRN, Starting on Anahi 01/07/23 at 1414, Until Discontinued, Line Care, After every IV line use, For Line Patency: Peripheral IV = 5 mL; Midline or Central Line = 10 mL/lumen. If following IV push medication, administer flush at same rate as the IV push. Flush volume is determined by type of infusion therapy being given. For non-viscous solutions use: Peripheral IV = 5 mL Midline or Central Line = 10 mL/lumen For viscous solutions (i.e. blood components, parenteral nutrition, contrast media, or after obtaining blood sample) use: Peripheral IV = 10 mL Midline or Central Line = 20 mL/lumen Linked Groups Order Group 1: ondansetron (ZOFRAN-ODT) disintegrating tablet 4 mgJump to med 4 mg, Oral, EVERY 8 HOURS PRN, Starting on Anahi 01/07/23 at 1414, Until Discontinued, Nausea, Vomiting Or ondansetron (ZOFRAN) injection 4 mgJump to med 4 mg, IntraVENous, EVERY 6 HOURS PRN, Starting on Anahi 01/07/23 at 1414, Until Discontinued, Nausea, Vomiting
Administer if oral route cannot be used.
Group 2: potassium chloride (KLOR-CON M) extended release tablet 40 mEqJump to med 40 mEq, Oral, PRN, Starting on Anaih 01/07/23 at 1736, Until Discontinued, Per Potassium Replacement Protocol
May give alternative linked oral order (ordered as effervescent, packet, or liquid solution) if patient unable to tolerate tablet. K Lab Repla cemen t Action 3.1 to 3.5 40 mEq ORAL x 1 Under 3.1 Refer to IV replacement protocol Recheck K level in AM. Protocol not for use in patients with CrCl less than 30 mL/min.
Or potassium bicarb-citric acid (EFFER-K) effervescent tablet 40 mEqJump to med 40 mEq, Oral, PRN, Starting on Anahi 01/07/23 at 1736, Until Discontinued, Per Potassium Replacement Protocol
Administer as alternative if patient unable to tolerate oral tablet. K Lab Repla cemen t Action 3.1 to 3.5 40 mEq ORAL x 1 Under 3.1 Refer to IV replacement protocol Recheck K level in AM. Protocol not for use in patients with CrCl less than 30 mL/min. Do not chew or crush. Dissolve flavored tablets completely in 3 to 4 ounces of cold water; unflavored tablets may be dissolved in 3 to 4 ounces of cold juice. Patient to sip slowly over a 5 to 10 minute period. May further dilute if GI adverse effects occur.
Or potassium chloride 10 mEq/100 mL IVPB (Peripheral Line)Jump to med 10 mEq, IntraVENous, PRN, Starting on Anahi 01/07/23 at 1736, Until Discontinued, at 100 mL/hr, Per Potassium Replacement Protocol
K Lab Replacement Action 2.7 to 3.0 10 mEq IVPB x 6 doses (60 mEq Total) Under 2.7 CALL PROVIDER and administer 10 mEq IVPB x 6 doses (60 mEq Total) Infuse at 10 mEq/hr. Repeat Potassium lab 1 hour after final administration. Protocol not for use in patients with CrCl less than 30 mL/min.
Care Teams (unrecognized sec tion and content) Dag Coater Relationship Specialty Start Date End Date Mary Huffman APRN - [facility] PCP - General Internal Medicine 01/27/18 Dag Coater Relationship Specialty Start Date End Date Tricia Sifuentes PA [address] [place] [address] [place] [address] PCP - [facility] 12/27/23 FOR RECORDS PERTAINING TO PATIENTS WHO ARE OR HAVE BEEN ENROLLED IN A CHEMICAL DEPENDENCY/SUBSTANCEABUSE PROGRAM, SOME INFORMATION MAY BE OMITTED. This clinical summary was aggregated from multiple sources. Caution should be exercised in using it in the provision of clinical care. This summary normalizes information from multiple sources, and as a consequence, information in this document may materially change the coding, format and clinical context of patient data. In addition, data may be omitted in some cases. CLINICAL DECISIONS SHOULD BE BASED ON THE PRIMARY CLINICAL RECORDS. [facility]. provides no warranty or guarantee of the accuracy or completeness of information in this document.
[2024-10-24 16:08] LABS: Age Gdln ACOG Testing Note (.); HPV Aptima Negative (Negative); IGP, Aptima HPV, rfx 16/18,45 Note (.)
== END 2024-10-18 19:20 | disposition home or self-care (01) ==
LOC: LAB 19:19
PROVIDERS: Visit Provider Physician Assistant
DX: Z01.419 Encounter for gynecological examination (general) (routine) without abnormal findings (principal)
CPT/HCPCS: 87624; 88175